=== PATIENT | female | born 1980 | race Caucasian/White ===

== ENCOUNTER 2017-12-01 09:07 | Inpatient (IN) | payer OTHER ==
[2017-12-01] MEDS ORDERED: NA CHLORIDE 0.9% 50 ML IV ONE (09:31)
[2017-12-01] MEDS ORDERED: FOSPHENYTOIN PE 500 MG/10 ML VIAL ONE (09:31)
[2017-12-01] MEDS ORDERED: Nicardipine/NS 25 MG/250 ML KIT IV ONE (09:34)
[2017-12-01] MEDS ORDERED: LABETALOL 20 MG/4ML SYRINGE IV ONE (09:34)
[2017-12-01] MEDS ORDERED: LORazepam 2 MG/ML VIAL ONE ×3 (09:36→10:12)
[2017-12-01] MEDS ORDERED: THIAMINE 200 MG/2 ML INJ ONE (09:41)
[2017-12-01] MEDS ORDERED: LABETALOL HCL 100 MG/20 ML ONE (09:42)
[2017-12-01 09:56] LABS: Absolute Lymphocytes (CBC) 3.3 K/uL (0.7-4.9); Absolute Monocytes 1.2 K/uL (0.1-1.3); Absolute Neutrophil 8.8 K/uL (1.8-8.0); Basophils % 0.4 % (0-1.3); Eosinophils % 1.9 % (0-4.4); Hematocrit 34.8 % (36.0-45.0); Lymphocytes % 24.3 % (15.3-44.8); MCH 31.4 pg (27.0-35.0); MCV 96.3 fL (80-100); MPV 9.7 fL (7.6-11.3); Monocytes % 8.6 % (3.3-12.3); RBC Red Blood Cell Count 3.61 M/uL (3.86-4.86)
[2017-12-01 09:59] LABS: Protime INR 1.09
[2017-12-01 10:06] LABS: Albumin 3.9 g/dL (3.2-5.5); Bilirubin Direct 0.4 mg/dL (0-0.2); Bilirubin Total 1.9 mg/dL (0.3-1.2); Protein, Total 8.9 g/dL (6.0-8.3)
[2017-12-01 10:08] LABS: Potassium 2.7 mEq/L (3.6-5.0)
--- NOTE | 2017-12-01 10:21 | RAD REPORT ---
EXAM DESCRIPTION: CT - Head Brain Wo Cont - 12/01/2017 10:07 am CLINICAL HISTORY: Seizure COMPARISON: 2016 TECHNIQUE: Computed axial tomography of the head was obtained. IV contrast was not requested. All CT scans are performed using dose optimization technique as appropriate and may include automated exposure control or mA/KV adjustment according to patient size. FINDINGS: An intracranial bleed is not seen . The ventricles are normal in caliber. No extra-axial fluid collection is noted. Fluid within the sinuses/ mastoids is not seen. IMPRESSION: No acute intracranial abnormality is seen. If patient's symptoms persist MRI of the bra in would be recommended.
[2017-12-01 10:22] LABS: Arterial Blood Carboxyhemoglob 1.4 % (0-1.5); Blood Gas Oxyhemoglobin 87.4 % (94-97); Blood O2 Saturation 89.8 % (92-98.5)
[2017-12-01 10:23] LABS: Urine Blood TRACE (NEG); Urine Glucose 1+ (NEG); Urine Protein 3+ (NEG); Urine pH 7.5 (5.0-7.0)
--- NOTE | 2017-12-01 10:27 | RAD REPORT ---
EXAM DESCRIPTION: Kelly Single View12/01/2017 9:44 am CLINICAL HISTORY: sob COMPARISON: January 2017 FINDINGS: The lungs appear clear of acute infiltrate. The heart is probably upper limits normal siz e IMPRESSION: No acute abnormalities displayed
--- NOTE | 2017-12-01 10:36 | EDPHYS ---
Physician Documentation [facility] Department Name: Verito Christian Age: 37 yrs Sex: Female : 1980 Arrival Date: 12/01/2017 Time: 09:08 Bed 3 Private MD: ED Physician Pedro Knowles HPI: 12/01 09:34 This 37 yrs old Female presents to ER via Unassigned with complaints of myrna seizure at dialysis,shaking, ams, htn. 09:34 The patient's problem is reported as altered mental status, an apparent seizure, myrna weakness. Onset: The symptoms/episode began/occurred just prior to arrival, this morning. Duration: This was a single incident, The episode is continuous. Context: the episode(s) was witnessed, by a bystander, by EMS personnel, occurred dialysis. seizure, no history. The patient presents with confusion, decreased mental status, decreased responsiveness, trouble concentrating. Possible causes: unknown. Character of seizure(s): Loss of consciousness: the patient experienced loss of consciousness, Motor activity: generalized, Incontinence: none, Apnea: the patient did not experience apnea, Circulation: the patient did not experience evidence of pulse disturbance. Historical: - Allergies: 10:30 Fentanyl (rash); ss 10:30 Morphine (rash); ss - Home Meds: 12:13 amitriptyline 100 mg Oral tab 1 tab nightly [Active]; metoprolol succinate 50 mg oral ph Tb24 1 tab twice a day [Active]; gabapentin 300 mg Oral cap 2 caps twice daily [Active]; ramipril 5 mg Oral cap 2 caps nightly [Active]; doxazosin 2 mg Oral tab 2 tabs twice a day [Active]; Renagel 800 mg Oral tab 2 tabs 3 times per day [Active]; Nexium 40 mg Oral cpDR 1 cap once daily [Active]; amlodipine 10 mg oral tab 1 tab once daily [Active]; aspirin 81 mg Oral TbEC 1 tab once daily [Active]; atorvastatin 20 mg oral tab 1 tab once daily [Active]; - PMHx: 10:30 Diabetes - IDDM; Dialysis; Hypertension; kidney failure; LYMPHOMA; RETINAL DETACHMENT; ss - Immunization history:: Adult Immunizations unknown. - Family history:: not pertinent. - Social history:: Smoking status: Patient/guardian denies using tobacco. ROS: 09:34 Constitutional: Negative for fever, chills, and weight loss, Eyes: Negative for injury, myrna pain, redness, and discharge, ENT: Negative for injury, pain, and discharge, Neck: Negative for injury, pain, and swelling, Cardiovascular: Negative for chest pain, palpitations, and edema, Respiratory: Negative for shortness of breath, cough, wheezing, and pleuritic chest pain, Abdomen/GI: Negative for abdominal pain, nausea, vomiting, diarrhea, and constipation, Back: Negative for injury and pain, : Negative for injury, bleeding, discharge, and swelling, MS/Extremity: Negative for injury and deformity, Skin: Negative for injury, rash, and discoloration, Psych: Negative for depression, anxiety, suicide ideation, homicidal ideation, and hallucinations, Allergy/Immunology: Negative for hives, rash, and allergies, Endocrine: Negative for neck swelling, polydipsia, polyuria, polyphagia, and marked weight changes, Hematologic/Lymphatic: Negative for swollen nodes, abnormal bleeding, and unusual bruising. 09:34 Neuro: Positive for altered mental status, seizure activity, weakness. Exam: 09:34 Constitutional: This is a well developed, well nourished patient who is awake, alert, myrna and in no acute distress. Head/Face: Normocephalic, atraumatic. Eyes: Pupils equal round and reactive to light, extra-ocular motions intact. Lids and lashes normal. Conjunctiva and sclera are non-icteric and not injected. Cornea within normal limits. Periorbital areas with no swelling, redness, or edema. ENT: Nares patent. No nasal discharge, no septal abnormalities noted. Tympanic membranes are normal and external auditory canals are clear. Oropharynx with no redness, swelling, or masses, exudates, or evidence of obstruction, uvula midline. Mucous membranes moist. Neck: Trachea midline, no thyromegaly or masses palpated, and no cervical lymphadenopathy. Supple, full range of motion without nuchal rigidity, or vertebral point tenderness. No Meningismus. Chest/axilla: Normal chest wall appearance and motion. Nontender with no deformity. No lesions are appreciated. Cardiovascular: Regular rate and rhythm with a normal S1 and S2. No gallops, murmurs, or rubs. Normal PMI, no JVD. No pulse deficits. Respiratory: Lungs have equal breath sounds bilaterally, clear to auscultation and percussion. No rales, rhonchi or wheezes noted. No increased work of breathing, no retractions or nasal flaring. Abdomen/GI: Soft, non-tender, with normal bowel sounds. No distension or tympany. No guarding or rebound. No evidence of tenderness throughout. Back: No spinal tenderness. No costovertebral tenderness. Full range of motion. Female : Normal external genitalia. Skin: Warm, dry with normal turgor. Normal color with no rashes, no lesions, and no evidence of cellulitis. MS/ Extremity: Pulses equal, no cyanosis. Neurovascular intact. Full, normal range of motion. 09:34 Neuro: Orientation: unable to test, Mentation: confused, Memory: unable to test, Cranial nerves: no acute changes, Cerebellar function: unable to test, Motor: moves all fours, Gait: not tested. seizure activity, is not currently displayed, but the patient is post-ictal. 10:36 Radiologist reports: Sonal gutierrez [facility] Vital Signs: 09:25 Temp 97.8(R); ss 09:25 BP 263 / 138; Pulse 87; Resp 20; Pulse Ox 100% on Non-rebreather mask; ph 09:45 BP 142 / 85; Pulse 81; Resp 18; Pulse Ox 100% on Non-rebreather mask; ph 10:10 BP 126 / 71; Pulse 77; ph 10:15 BP 126 / 71; Pulse 77; Resp 20; Pulse Ox 100% on Non-rebreather mask; ph 10:45 BP 120 / 75; Pulse 73; Resp 20; Pulse Ox 100% on Non-rebreather mask; ph 11:15 BP 134 / 81; Pulse 74; Resp 18; Pulse Ox 100% on 2 lpm NC; ph 11:45 BP 156 / 88; Pulse 74; Resp 16; Pulse Ox 98% on 2 lpm NC; ph 12:15 BP 143 / 80; Pulse 73; Resp 16; Temp 97.7(R); Pulse Ox 100% on 2 lpm NC; ph Procedures: 11:13 Peripheral line: by aseptic technique a peripheral line was placed in the left external myrna jugular vein. MDM: 09:30 Patient medically screened. [facility] 09:42 Data reviewed: vital signs, nurses notes, lab test result(s), EKG, radiologic studies, [facility] CT scan, plain films. 12/01 09:28 Order name: Basic Metabolic Panel hb 12/01 09:28 Order name: BNP hb 12/01 09:28 Order name: CBC with Diff hb 12/01 09:28 Order name: Ckmb hb 12/01 09:28 Order name: CPK hb 12/01 09:28 Order name: LFT's hb 12/01 09:28 Order name: Magnesium hb 12/01 09:28 Order name: PT-INR hb 12/01 09:28 Order name: Ptt, Activated hb 12/01 09:28 Order name: Troponin (emerg Dept Use Only) hb 12/01 09:28 Order name: Blood Culture Adult (2) hb 12/01 09:39 Order name: Urine Dipstick--Ancillary (enter results) bd 12/01 09:39 Order name: Urine --Ancillary (enter results) bd 12/01 09:49 Order name: ABG myrna 12/01 09:56 Order name: CBC with Automated Diff; Complete Time: 10:15 EDMS 12/01 09:59 Order name: Protime (+INR); Complete Time: 10:15 EDMS 12/01 09:59 Order name: PTT, Activated Partial Thromb; Complete Time: 10:15 EDMS 12/01 10:00 Order name: Basic Metabolic Panel; Complete Time: 10:15 EDMS 12/01 10:06 Order name: Liver (Hepatic) Function; Complete Time: 10:15 EDMS 12/01 10:06 Order name: Creatine Phosphokinase; Complete Time: 10:15 EDMS 12/01 10:06 Order name: Magnesium; Complete Time: 10:15 EDMS 12/01 10:06 Order name: Troponin (Emerg Dept Use Only); Complete Time: 10:15 EDMS 12/01 10:10 Order name: CKMB Creatine Kinase MB; Complete Time: 10:15 EDMS 12/01 10:10 Order name: BNP B-Type Natriuretic Peptide; Complete Time: 10:15 EDMS 12/01 10:24 Order name: Urine --Ancillary EDMS 12/01 10:24 Order name: Urine Dipstick-Ancillary EDMS 12/01 10:48 Order name: ABG Arterial Blood Gas EDMS 12/01 13:14 Order name: Troponin I EDMS 12/01 13:17 Order name: Creatine Phosphokinase [facility] 12/01 13:17 Order name: CKMB Creatine Kinase MB [facility] 12/01 09:28 Order name: XRAY Chest (1 view) 12/01 09:28 Order name: EKG; Complete Time: 09:28 12/01 09:28 Order name: Cardiac monitoring; Complete Time: 10:46 12/01 09:28 Order name: EKG - Nurse/Tech; Complete Time: 11:37 12/01 09:28 Order name: IV Saline Lock; Complete Time: 10:46 12/01 09:28 Order name: Labs collected and sent; Complete Time: 10:46 12/01 09:28 Order name: O2 Per Protocol; Complete Time: 10:46 12/01 09:28 Order name: O2 Sat Monitoring; Complete Time: 10:46 12/01 09:28 Order name: Urine Dipstick-Ancillary (obtain specimen); Complete Time: 10:46 12/01 09:28 Order name: CT Head Brain wo Cont 12/01 09:29 Order name: Straight Cath - Urine; Complete Time: 09:29 12/01 09:32 Order name: Seizure Precautions; Complete Time: 10:49 [facility] 12/01 09:32 Order name: Wound Care; Complete Time: 10:48 [facility] 12/01 09:32 Order name: Wound dressing; Complete Time: 10:48 [facility] 12/01 10:22 Order name: CT [facility] 12/01 10:27 Order name: RAD EDMS Administered Medications: 09:12 Drug: Trandate 20 mg Route: IVP; Site: left jugular; ph 10:15 Follow up: Response: No adverse reaction; Blood pressure is lowered ph 09:20 Drug: Fosphenytoin 1 grams Route: IVPB; Site: left jugular; ph 11:38 Follow up: Response: No adverse reaction; IV Status: Completed infusion ph 09:25 Drug: Ativan 2 mg Route: IVP; Site: left jugular; ph 10:00 Follow up: Response: No adverse reaction ph 09:33 Drug: Thiamine 100 mg Route: IV; Rate: bolus; Site: left jugular; ph 09:35 Drug: Cardene 5 mg/hr Route: IV; Rate: per protocol; Site: left jugular; ph 10:10 Follow up: BP 126 / 71; Pulse 77 bpm; Response: No adverse reaction; Blood pressure is ph lowered; IV Status: IV converted to saline lock 09:40 Drug: Ativan 2 mg Route: IVP; Site: left jugular; ph 10:15 Follow up: Response: No adverse reaction ph 10:15 Drug: Ativan 2 mg Route: IVP; Site: left jugular; ph 11:00 Follow up: Response: No adverse reaction ph 11:36 Drug: Potassium Chloride 20 mEq Route: IV; Rate: per protocol; Site: left jugular; ph 13:39 Follow up: Response: No adverse reaction; IV Status: Completed infusion ph 11:37 Drug: Cefepime 1 grams Route: IVPB; Rate: 200 ml/hr; Infused Over: 30 mins; Site: left ph jugular; 12:25 Drug: vancoMYCIN 1 grams Route: IVPB; Infused Over: 2 hrs; Site: left jugular; ph Point of Care Testing: Blood Glucose: 09:25 Blood Glucose: 123 mg/dL; ph Ranges: Critical Glucose Levels:Adult <50 mg/dl or >400 mg/dl <40 mg/dl or >180 mg/dl Disposition: 12/01/17 10:35 Hospitalization ordered by Ariel Mendosa for Inpatient Admission. Preliminary diagnosis are Epileptic seizures related to external causes, Hypokalemia, Altered mental status, unspecified, Cellulitis of left lower limb - toe, amputated, Essential (primary) hypertension. - Bed requested for Intensive Care Unit. - Status is Inpatient Admission. ph - Condition is Serious. - Problem is new. - Symptoms have improved. UTI on Admission? No Signatures: Dispatcher [employer] EDPedro Clifton MD MD cha Smirch, Shelby, RN RN Tameka King RN RN Janelle Luong RN RN Kate Huston RN RN df
--- NOTE | 2017-12-01 10:36 | ER ---
Nurse's Notes [facility] Name: Verito Christian Age: 37 yrs Sex: Female : 1980 Arrival Date: 12/01/2017 Time: 09:08 Bed 3 Private MD: Diagnosis: Epileptic seizures related to external causes;Hypokalemia;Altered mental status, unspecified;Cellulitis of left lower limb-toe, amputated;Essential (primary) hypertension Presentation: 12/01 09:35 Presenting complaint: EMS states: Pt w/ hx of CVA x 2 weeks ago, has been experiencing ph tremors, weakness, and painsince, was at dialysis today and tremors became worse, tx d/c after 1.9 liters removed. BP elevated 200s/100s [employer]. Transition of care: patient was not received from another setting of care. Onset of symptoms was December 01, 2017. Care prior to arrival: None. 09:35 Method Of Arrival: EMS: [facility] ph 09:35 Acuity: HENRRY 2 ph Historical: - Allergies: 10:30 Fentanyl (rash); ss 10:30 Morphine (rash); ss - Home Meds: 12:13 amitriptyline 100 mg Oral tab 1 tab nightly [Active]; metoprolol succinate 50 mg oral ph Tb24 1 tab twice a day [Active]; gabapentin 300 mg Oral cap 2 caps twice daily [Active]; ramipril 5 mg Oral cap 2 caps nightly [Active]; doxazosin 2 mg Oral tab 2 tabs twice a day [Active]; Renagel 800 mg Oral tab 2 tabs 3 times per day [Active]; Nexium 40 mg Oral cpDR 1 cap once daily [Active]; amlodipine 10 mg oral tab 1 tab once daily [Active]; aspirin 81 mg Oral TbEC 1 tab once daily [Active]; atorvastatin 20 mg oral tab 1 tab once daily [Active]; - PMHx: 10:30 Diabetes - IDDM; Dialysis; Hypertension; kidney failure; LYMPHOMA; RETINAL DETACHMENT; ss - Immunization history:: Adult Immunizations unknown. - Family history:: not pertinent. - Social history:: Smoking status: Patient/guardian denies using tobacco. Screenin:54 Abuse screen: Denies threats or abuse. Denies injuries from another. Nutritional ph screening: No deficits noted. Tuberculosis screening: No symptoms or risk factors identified. Fall Risk Fall in past 12 months (25 points). Secondary diagnosis (15 points) CVA, IV access (20 points). Ambulatory Aid- None/Bed Rest/Nurse Assist (0 pts). Gait- Normal/Bed Rest/Wheelchair (0 pts). Assessment: 09:05 Reassessment: After transferring pt from EMS stretcher to ED bed pt began to exhibit ph seizure like activity, placed pt on NRB mask, moved to trauma room and ERP notified. 09:45 Reassessment: Patient appears in no apparent distress at this time. Pt post-ictal at this time, restless and attempting to pull IV line and monitor wires, soft restraints applied to radha wrist per ERP order, brisk cap refill noted, respirations even an unlabored, SPo2 100% on NRB. 10:00 Reassessment: Pt taken to CT, accompanied by RN. ph 10:08 Reassessment: Dr. Knowles notified of Critical value, serum Potassium 2.7. ss 10:25 General: Appears in no apparent distress. obese, well groomed, Behavior is listless, ph restless. Pain: Unable to use pain scale. Patient is unresponsive. Neuro: Level of Consciousness is post ictal, Pupils are PERRLA, Seizure activity Seizure lasted approximately 1 minutes. Patient is post-ictal at this time. Cardiovascular: Capillary refill < 3 seconds Patient's skin is warm and dry. Dialysis shunt: in the right arm, with palpable thrill, with auscultated bruit, with no erythema, with no edema, no bleeding noted. Respiratory: Airway is patent Respiratory effort is even, unlabored, Respiratory pattern is regular, symmetrical, Breath sounds are clear bilaterally. GI: Abdomen is round non-distended, Bowel sounds present X 4 quads. Derm: Skin is healthy with good turgor, Skin is pink, warm \T\ dry. Wound noted plantar aspect of left first toe. Musculoskeletal: Amputation of left first toe. Circulation, motion, and sensation intact. Range of motion: intact in all extremities. 10:29 Reassessment: Dr. Mendosa at bedside discussing POC with patient's mother. ss 11:00 Reassessment: Patient appears in no apparent distress at this time. Patient and/or family updated on plan of care and expected duration. Pain level reassessed. Pt appears to be sleeping, respirations even and unlabored, responds to tactile stimuli, family at bedside, awaiting room assignment, VSS will continue to monitor. 12:05 Reassessment: Patient appears in no apparent distress at this time. No changes from ph previously documented assessment. Patient and/or family updated on plan of care and expected duration. Pain level reassessed. 13:15 Reassessment: Patient appears in no apparent distress at this time. No changes from ph previously documented assessment. Patient and/or family updated on plan of care and expected duration. Pain level reassessed. Vital Signs: 09:25 Temp 97.8(R); ss 09:25 BP 263 / 138; Pulse 87; Resp 20; Pulse Ox 100% on Non-rebreather mask; ph 09:45 BP 142 / 85; Pulse 81; Resp 18; Pulse Ox 100% on Non-rebreather mask; ph 10:10 BP 126 / 71; Pulse 77; ph 10:15 BP 126 / 71; Pulse 77; Resp 20; Pulse Ox 100% on Non-rebreather mask; ph 10:45 BP 120 / 75; Pulse 73; Resp 20; Pulse Ox 100% on Non-rebreather mask; ph 11:15 BP 134 / 81; Pulse 74; Resp 18; Pulse Ox 100% on 2 lpm NC; ph 11:45 BP 156 / 88; Pulse 74; Resp 16; Pulse Ox 98% on 2 lpm NC; ph 12:15 BP 143 / 80; Pulse 73; Resp 16; Temp 97.7(R); Pulse Ox 100% on 2 lpm NC; ph ED Course: 09:08 Patient arrived in ED. ph 09:10 Missed attempt(s): 20 gauge in left antecubital area. Bleeding controlled, band aid ph applied, catheter tip intact. 09:15 Inserted saline lock: 18 gauge in left EJ, using aseptic technique. Blood collected. ph inserted by Pedro Knowles MD. 09:25 Straight cath inserted, using sterile technique, 16 Fr. Returned clear yellow urine. ss 09:30 Pedro Knowles MD is Attending Physician. myrna 09:38 Triage completed. ph 09:43 X-ray completed. Portable x-ray completed in exam room. Patient tolerated procedure kp1 well. 10:08 CT completed. Patient tolerated procedure well. Patient moved back from CT. bq 10:24 Ariel Mendosa DO is Hospitalizing Provider. myrna 10:46 Tameka King, RN is Primary Nurse. ph 10:59 Patient has correct armband on for positive identification. Bed in low position. Call ph light in reach. Side rails up X2. Seizure precautions initiated. library monitor on. Pulse ox on. NIBP on. 11:00 Arm band placed on. ph 11:10 EKG done, by ED staff, reviewed by Pedro Knowles MD. cc2 12:05 No provider procedures requiring assistance completed. ph 12:15 Patient admitted, IV remains in place. ph Restraints: 09:45 Non-Violent Restraint: Order obtained. Initiated on December 01, 2017 at 09:45 Restraint ph Education provided to family/significant other/legally authorized insurance claims representative. Actions/Behavior observed: Confused/disoriented, has decreased level of consciousness, unable to follow instructions, repeated attempts to remove/tamper lines/tubes/IV med devices \T\ wound dressing, Less restrictive alternatives attempted: placed near Nurse station, medicated for pain/anxiety, Alternative interventions: Ineffective. Clinical justification for use: line protection, patient safety. 11:45 Non-Violent Restraint: Mental status: patient asleep, Cognition: unable to follow ph commands, short term memory loss, Circulation: Within defined parameters (based on Cardiovascular assessment) Skin integrity: Within defined parameters (based on Integumentary assessment) Signs of injury related to restraint: No injuries noted. Range of Motion (ROM): performed. Hydration/Food: patient asleep. Elimination/Hygiene: Patient asleep. Administered Medications: 09:12 Drug: Trandate 20 mg Route: IVP; Site: left jugular; ph 10:15 Follow up: Response: No adverse reaction; Blood pressure is lowered ph 09:20 Drug: Fosphenytoin 1 grams Route: IVPB; Site: left jugular; ph 11:38 Follow up: Response: No adverse reaction; IV Status: Completed infusion ph 09:25 Drug: Ativan 2 mg Route: IVP; Site: left jugular; ph 10:00 Follow up: Response: No adverse reaction ph 09:33 Drug: Thiamine 100 mg Route: IV; Rate: bolus; Site: left jugular; ph 09:35 Drug: Cardene 5 mg/hr Route: IV; Rate: per protocol; Site: left jugular; ph 10:10 Follow up: BP 126 / 71; Pulse 77 bpm; Response: No adverse reaction; Blood pressure is ph lowered; IV Status: IV converted to saline lock 09:40 Drug: Ativan 2 mg Route: IVP; Site: left jugular; ph 10:15 Follow up: Response: No adverse reaction ph 10:15 Drug: Ativan 2 mg Route: IVP; Site: left jugular; ph 11:00 Follow up: Response: No adverse reaction ph 11:36 Drug: Potassium Chloride 20 mEq Route: IV; Rate: per protocol; Site: left jugular; ph 13:39 Follow up: Response: No adverse reaction; IV Status: Completed infusion ph 11:37 Drug: Cefepime 1 grams Route: IVPB; Rate: 200 ml/hr; Infused Over: 30 mins; Site: left ph jugular; 12:25 Drug: vancoMYCIN 1 grams Route: IVPB; Infused Over: 2 hrs; Site: left jugular; ph Point of Care Testing: Blood Glucose: 09:25 Blood Glucose: 123 mg/dL; ph Ranges: Outcome: 10:35 Decision to Hospitalize by Provider. myrna 13:38 Admitted to ICU accompanied by nurse, accompanied by tech, via wheelchair, room 3, with ph oxygen, on monitor, with chart, Report called to Mecca JACKSON 13:38 critical 13:41 Patient left the ED. ph Signatures: Pedro Knowles MD MD cha Quilty, Betty bq Smirch, Shelby, RN RN Tameka Vogel RN RN Shilo, Al charles2 Carmen Villa kp1 Corrections: (The following items were deleted from the chart) 11:06 09:05 Reassessment: After transferring pt from EMS stretcher to ED bed pt began to ph exhibit seizure like activity, moved to trauma room and ERP notified. ph 11:39 10:10 BP 126 / 71; Pulse 77 bpm; IV Status: IV converted to saline lock ph ph 12:06 10:25 Cardiovascular: Capillary refill < 3 seconds Patient's skin is warm and dry. ph ph
[2017-12-01] MEDS ORDERED: ONDANSETRON 4 MG/2 ML VIAL IV PRN (11:03)
[2017-12-01] MEDS ORDERED: ACETAMINOPHEN 650MG/RECT SUPP PR PRN (11:03)
[2017-12-01] MEDS ORDERED: SODIUM CHLORIDE 0.9% 10ML INJ IV PRN (11:03)
[2017-12-01] MEDS ORDERED: ALBUTEROL 2.5 MG/3 ML NEB SOL NEB PRN (11:03)
[2017-12-01] MEDS ORDERED: IPRATROPIUM BROM 0.5MG/2.5ML NEB PRN (11:03)
[2017-12-01] MEDS ORDERED: GLUCAGON 1 MG/VIAL IM PRN (11:27)
[2017-12-01] MEDS ORDERED: D50W 25 GM/50 ML SYRINGE IV PRN (11:27)
[2017-12-01] MEDS ORDERED: NA CHLORIDE 0.9% 500 ML ONE (11:28)
[2017-12-01] MEDS ORDERED: KCL 20 MEQ/100 mL IVPB 20 MEQ/100 ML BAG IV ONE (11:29)
[2017-12-01] MEDS ORDERED: CEFEPIME 1 GM/100 ML BAG IV ONE (11:29)
[2017-12-01] MEDS ORDERED: VANCOMYCIN/NS 1 gm 1 GM/250 ML BAG ONE (11:29)
[2017-12-01] MEDS: INSULIN -REGULAR HUMAN 50 UNIT/0.5 ML ML SQ SCH ×3 (11:30→21:00)
--- NOTE | 2017-12-01 11:40 | P.HP ---
Certification for Inpatient Patient admitted to: Inpatient With expected LOS: >2 Midnights Patient will require the following post-hospital care: Other Practitioner: I am a practitioner with admitting privileges, knowledge of patient current condition, hospital course, and medical plan of care. Services: Services provided to patient in accordance with Admission requirements found in Title 42 Section 412.3 of the Code of Federal Regulations Patient History Date of Service: 12/01/17 Primary Care Provider: Dr. Vicente; Nephrology-Dr. Guaman; Cardiology-Dr. Gonzalez Reason for admission: Altered mental status, seizures History of Present Illness: 37-year-old female presented to the emergency room with altered mental status and seizures. Patient with multiple medical problems including end-stage renal disease, obstructive sleep apnea, diabetes, hypertension, hyperlipidemia, history CVA, PAD. Most of the information came from the mother and aunt who was present at bedside. The mother reports that on November 08 the patient had an outpatient procedure to have a left great toe amputated due to gangrene. This was done at [facility]. The patient stayed overnight. She apparently got dialysis at that time. She apparently coded for about 4 min. She was sent to ICU and was placed on the ventilator. During that time the patient had suffered a stroke in 3 areas of the brain. She also had gotten an EEG. The mother thought that the patient had seizures. She is unsure whether the patient got anti she is in medication. The patient was rehabilitated. She stayed at the hospital for about 2 weeks. She was told that there was little that can be done for the patient. She was sent to [facility] last week. During this past week she has had poor appetite. Some nausea and vomiting has no been noted. She has poor memory. She is not able to walk. Today she went to dialysis. She apparently had some mild tremors during her treatment. 1.9 L was taken off. The tremors increased. She came to the emergency room for further evaluation. In the ER she was evaluated. She appeared to have seizures. She was given Ativan and fosphenytoin. The patient remained stable at this time. Patient is somnolent. In the ER lab shows a potassium of 2.7, BUN of 22, creatinine 3.99 with a GFR of 13. BNP elevated at 967. Troponin 0.03. Total bilirubin 1.9, AST 53, alk- phos slightly elevated. Urinalysis was unremarkable. test negative. Chest x-ray negative. CT of the head showed no acute abnormality. White count 13.6, hemoglobin 11. Patient has been stabilize. I was asked to admit the patient. Neurology and Nephrology have been consulted. When I saw the patient in the ER, she appeared somnolent. She was difficult to arouse but stable. Vital signs stable at this time. She does not appear in any acute respiratory distress. Mother and aunt are at bedside. Allergies morphine Allergy (Intermediate, Verified 07/18/16 08:38) Itching fentanyl Allergy (Verified 07/18/16 08:38) Itching Home medications list reviewed: Yes Home Medications: Metoprolol Tartrate [Lopressor] 50 mg PO BID 04/10/16 Gabapentin [Neurontin*] 600 mg PO BID 06/28/16 Amitriptyline HCl 100 mg PO BEDTIME 12/22/16 traMADol HCL [Ultram*] 50 mg PO TIDP PRN #20 tab 12/24/16 - Past Medical/Surgical History Diabetic: Yes -: Diabetes mellitus type 2 -: HTN -: End-stage renal disease, hemodialysis T,Th,Sat; Dr. Guaman-Nephrology. -: History of pancreatitis -: Burkitt's Lymphoma -: History of seizures -: Gastroparesis -: Anemia of chronic disease -: Gastroparesis -: History retinal detachment -: History CVA -: Former tobacco use -: I&D of abcess, SOME LYMPH NODES REMOVED BILAT GROIN -: -: [place] cath - removed -: PERMA CATH PLACEMENT -: G-J TUBE INSERTION, REMOVAL -: dialysis fistula Psychosocial/ Personal History: She is . Has 1 child. She no longer works. She currently is at [facility] [employer] [facility]. - Family History Father -: Hypertension, Diabetes, Other (see notes) Notes: LYMPHOMA Mother -: Hypertension, Diabetes, Cancer Notes: Breast cancer - Social History Smoking Status: Former smoker Alcohol use: No CD- Drugs: No Caffeine use: No Place of Residence: [place] Review of Systems General: Weakness, As per HPI Eyes: Unremarkable ENT: Unremarkable Respiratory: Unremarkable Cardiovascular: Unremarkable Gastrointestinal: Nausea, Vomiting, As per HPI Genitourinary: Unremarkable Musculoskeletal: As per HPI Integumentary: As per HPI Neurological: Weakness, Confusion, Seizures, As per HPI Lymphatics: Unremarkable Physical Examination - Physical Exam General: Other (Patient sedated. No acute respiratory distress noted. Increased somnolence noted.) HEENT: Atraumatic, Mucous membr. moist/pink Neck: Supple Respiratory: Clear to auscultation bilaterally, Normal air movement Cardiovascular: Normal pulses, Regular rate/rhythm Gastrointestinal: Normal bowel sounds, Soft and benign, Non-distended Musculoskeletal: No tenderness, No warmth Integumentary: Other (Postoperative changes noted to the left great toe.) Neurological: Other (Patient sedated at this time.) - Studies Laboratory Data (last 24 hrs) 12/01/17 09:30: PT 12.9 H, INR 1.09, APTT 27.3 12/01/17 09:30: WBC 13.6 H, Hgb 11.3 L, Hct 34.8 L, Plt Count 355 12/01/17 09:30: B-Natriuretic Peptide 967 H 12/01/17 09:30: Sodium 138, Potassium 2.7 L*, BUN 22 H, Creatinine 3.99 H, Glucose 145 H, Magnesium 2.0, Total Bilirubin 1.9 H, AST 53 H, ALT 30, Alkaline Phosphatase 192 H Assessment and Plan - Problems (Diagnosis) (1) Encephalopathy Current Visit: Yes Status: Acute Plan: Etiology unknown. Metabolic verses neurologic. Patient appears to have had a seizure. There is a history of seizures. There is also a recent history of CVA. Will need to see if the patient was [facility] the [facility] with anti seizure medication. Patient has gotten Ativan and loading dose of fosphenytoin. Will continue with fosphenytoin. Initial CT scan shows no acute abnormality. Neurology has been consulted. Patient will go to the ICU. Patient will require dialysis. Nephrology consulted to further address. Will try to obtain records from [facility] due to recent hospitalization. Advanced directives address with mother. Aunt at bedside. This had been addressed in the past. Mother reports that the patient is DNR. This was addressed in detail and confirmed. Will continue to further assess and evaluate. (2) Seizures Current Visit: Yes Status: Acute Plan: Patient with history of seizure disorder with recent CVA. Will continue with medication. Await evaluation by neurology. Will obtain records from [facility]. (3) Hypokalemia Current Visit: Yes Status: Acute Plan: Hypokalemia will need replacement. Await recommendations from nephrology. (4) PAD (peripheral artery disease) Current Visit: Yes Status: Chronic Plan: Patient with recent left toe amputation. Will continue with wound care. (5) History of CVA (cerebrovascular accident) Current Visit: Yes Status: Chronic Plan: Patient with history of recent CVA. Will need to obtain records. Await neurology evaluation and recommendation. (6) Diabetes mellitus Onset Date: 07/26/15 Current Visit: No Status: Chronic Plan: Will provide sliding scale. 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 Patient will require dialysis. (8) Gastroparesis Current Visit: No Status: Chronic Plan: Patient with history of gastroparesis. Will monitor closely. (9) Hypertension Onset Date: 07/26/15 Current Visit: No Status: Chronic Plan: Will provide medication. Qualifiers: Hypertension type: essential hypertension Qualified Code(s): I10 - Essential (primary) hypertension (10) COPD (chronic obstructive pulmonary disease) Current Visit: Yes Status: Suspected Plan: Patient with history of tobacco abuse. Will provide medication. Will monitor closely. Qualifiers: COPD type: chronic bronchitis Chronic bronchitis type: unspecified Qualified Code(s): J42 - Unspecified chronic bronchitis (11) Anemia Onset Date: 07/26/15 Current Visit: No Status: Chronic Plan: Likely of chronic disease. Will monitor closely. Qualifiers: Anemia type: due to chronic kidney disease Chronic kidney disease stage: on chronic dialysis Qualified Code(s): N18.6 - End stage renal disease; D63.1 - Anemia in chronic kidney disease; D63.1 - Anemia in chronic kidney disease; Z99.2 - Dependence on renal dialysis; Z99.2 - Dependence on renal dialysis; Z99.2 - Dependence on renal dialysis; Z99.2 - Dependence on renal dialysis (12) GERD (gastroesophageal reflux disease) Current Visit: No Status: Chronic Plan: Will continue the medication. Qualifiers: Esophagitis presence: esophagitis presence not specified Qualified Code(s) : K21.9 - Gastro-esophageal reflux disease without esophagitis Discharge Plan: Snf Plan to discharge in: Greater than 2 days - Advance Directives Does patient have a Living Will: No Does patient have a Durable POA for Healthcare: No - Code Status/Comfort Care Code Status Assessed: Yes (Confirmed with mother) Time Spent Managing Pts Care (In Minutes): 55
[2017-12-01] MEDS ORDERED: FOSPHENYTOIN PE 100 MG/2 ML VIAL IV SCH (12:00)
[2017-12-01] MEDS ORDERED: ENOXAPARIN 40 MG/0.4 ML SQ SCH (12:00)
[2017-12-01 13:17] LABS: CKMB Creatine Kinase MB 2.7 ng/ml (0.3-4.0)
[2017-12-01] MEDS: HYDRALAZINE HCL 20 MG/ML VIAL IV PRN (14:18)
--- NOTE | 2017-12-01 14:24 | CON ---
Reason: Seizure. History: A 37-year-old lady, history of diabetes, end-stage renal disease, on dialysis, recent strok e, treated at a different institution, had new-onset seizure today witnessed in the Emergency Departm ent. Given a gram of fosphenytoin. CT scan of the brain demonstrates no evidence for cerebral hemor rhage. Blood pressure was markedly elevated initially in the Emergency Department, 263/138. The pat ient was also given lorazepam. She has not had any further seizure activity. She has multiple medic al problems as alluded to. Admitted to the ICU. The patient is a little bit more arousable currentl y than when she was in the Emergency Department. White cell count 13.6. Consultation was requested. Past Medical History: As alluded to. Medications: Normally Lopressor, gabapentin, amitriptyline, and tramadol. Allergies: MORPHINE AND FENTANYL. Social History: Never smoked. Disabled, was requiring assistance with activities of daily living pr ior to this event per the medical record. Family History: No family history of seizures. Review of Systems: General: Chronically ill. Eyes: retinal detachment. Ears, nose, and throat: Negative. Cardiovascular: History of hypertension. Pulmonary: Negative. GI: Negative. : End-stage renal disease. Musculoskeletal: recent great toe amputation. Neurologic: As noted. Psychiatric: Negative. Endocrine: Diabetes. Hematologic: Negative. Physical Examination: Vital Signs: On exam, she is afebrile. Vitals are stable. General: The patient is drowsy, but yeison usable. Can tell me her name. Answers questions. HEENT: Pupils poorly reactive. Ocular motion present. Face symmetric Neck: Supple. Extremities: Examination of her extremities reveals 4/5 strength throughout. Withdraws all extremit ies to pain. Reflexes are absent. Right toe was downgoing. Left toe was surgically absent. Pertinent Laboratory Data: White count 13,000, hemoglobin 11.3. CT scan as noted. PT and PTT nancy l. Potassium 2.7. Creatinine 3.99. TSH 2.69. Impression: New onset seizure, possibly related to the patient's recent stroke or hypertensive encep halopathy/crisis. Plan: Continue care in the intensive care unit. Continue IV fosphenytoin and follow levels. Keep l evel 10-20. Check EEG. Brain MRI once the patient is able to have the study performed, not availabl e on the weekend, so that we will likely have to wait till Sunday. Thank you for the consult. We will continue to follow with you. AVERY Voice ID: [id number] Report ID: [id number]
[2017-12-01] MEDS ORDERED: PNEUMOCOCCAL VACCINE 0.5 ML IMVAC ONE (17:00)
[2017-12-01] MEDS ORDERED: INFLUENZA VACCINE (for 3y+) 0.5 ML DOSE IMVAC ONE (17:00)
[2017-12-01] MEDS: FOSPHENYTOIN PE 100 MG/2 ML VIAL IV SCH (17:10)
[2017-12-01] MEDS ORDERED: KCL 20 MEQ/100 mL IVPB 20 MEQ/100 ML BAG IV SCH (19:00)
[2017-12-01] MEDS: ARFORMOTEROL TARTRATE 15 MCG/2 ML VIAL.NEB NEB SCH (20:03)
[2017-12-01 20:18] LABS: CKMB Creatine Kinase MB 3.1 ng/ml (0.3-4.0)
[2017-12-01] MEDS: ATORVASTATIN 40 MG TAB PO SCH (20:21)
[2017-12-02] MEDS: FOSPHENYTOIN PE 100 MG/2 ML VIAL IV SCH ×2 (00:16→09:05)
[2017-12-02] MEDS: HYDRALAZINE HCL 20 MG/ML VIAL IV PRN (05:03)
[2017-12-02 05:09] LABS: Absolute Lymphocytes (CBC) 1.7 K/uL (0.7-4.9); Absolute Monocytes 0.8 K/uL (0.1-1.3); Absolute Neutrophil 5.6 K/uL (1.8-8.0); Basophils % 0.4 % (0-1.3); Eosinophils % 2.5 % (0-4.4); Hematocrit 31.9 % (36.0-45.0); Lymphocytes % 20.1 % (15.3-44.8); MCH 31.3 pg (27.0-35.0); MPV 9.9 fL (7.6-11.3); Monocytes % 9.3 % (3.3-12.3); RBC Red Blood Cell Count 3.35 M/uL (3.86-4.86)
--- NOTE | 2017-12-02 05:15 | EKG ---
Test Date: 2017-12-01 Test Time: 11:04:01 Emergency Room Nurse: BARRY MEASUREMENT RESULTS: Intervals: Rate: 76 LA: 150 QRSD: 88 QT: 470 QTc: 528 [place]: P: 20 LA: 150 QRS: 75 T: 101 INTERPRETIVE STATEMENTS: Normal sinus rhythm Nonspecific ST abnormality Prolonged QT Abnormal ECG Compared to ECG 12/23/2016 06:40:38 ST (T wave) deviation now present Prolonged QT interval now present T-wave abnormality no longer present Electronically Signed On 12-02-17 05:14:12 CDT by Cristian Hernandez
[2017-12-02 05:26] LABS: CKMB Creatine Kinase MB 2.6 ng/ml (0.3-4.0)
[2017-12-02 05:28] LABS: Albumin 3.5 g/dL (3.2-5.5); Bilirubin Total 1.3 mg/dL (0.3-1.2); Potassium 3.6 mEq/L (3.6-5.0); Protein, Total 7.8 g/dL (6.0-8.3)
[2017-12-02] MEDS: INSULIN -REGULAR HUMAN 50 UNIT/0.5 ML ML SQ SCH ×4 (07:30→21:00)
[2017-12-02] MEDS: ARFORMOTEROL TARTRATE 15 MCG/2 ML VIAL.NEB NEB SCH ×2 (08:00→19:59)
[2017-12-02] MEDS: ASPIRIN EC 81 MG TAB PO SCH (09:05)
[2017-12-02] MEDS: PANTOPRAZOLE 40 MG INJ IVP SCH (09:05)
[2017-12-02] MEDS: ENOXAPARIN 30 MG/0.3 ML SQ SCH (09:06)
--- NOTE | 2017-12-02 09:22 | P.PN ---
Subjective Date of Service: 12/02/17 Primary Care Provider: Dr. Vicente; Nephrology-Dr. Guaman; Cardiology-Dr. Gonzalez Chief Complaint: Altered mental status, seizures Subjective: Other (Patient doing better. She is interactive this morning.) Physical Examination - Vital Signs Temperature: 98.4 F Blood Pressure: 128/64 Pulse: 93 Respirations: 21 Pulse Ox (%): 98 - Physical Exam General: Alert, In no apparent distress, Cooperative HEENT: Atraumatic Neck: Supple Respiratory: Clear to auscultation bilaterally, Normal air movement Cardiovascular: Normal pulses, Regular rate/rhythm Gastrointestinal: Normal bowel sounds, Soft and benign, Non-distended, No tenderness, No masses, No rebound, No guarding Musculoskeletal: No erythema, No tenderness, No warmth Integumentary: No erythema, No warmth, No cyanosis Neurological: Normal speech, Normal strength at 5/5 x4 extr, Normal tone, Abnormal affect (Flat affect noted.) - Studies Laboratory Data (last 24 hrs) 12/01/17 09:30: PT 12.9 H, INR 1.09, APTT 27.3 12/01/17 09:30: WBC 13.6 H, Hgb 11.3 L, Hct 34.8 L, Plt Count 355 12/01/17 09:30: B-Natriuretic Peptide 967 H 12/01/17 09:30: Sodium 138, Potassium 2.7 L*, BUN 22 H, Creatinine 3.99 H, Glucose 145 H, Magnesium 2.0, Total Bilirubin 1.9 H, AST 53 H, ALT 30, Alkaline Phosphatase 192 H Medications List Reviewed: Yes Assessment & Plan - Problems (Diagnosis) (1) Encephalopathy Current Visit: Yes Status: Acute Plan: Patient more responsive and cooperative this morning. Will advance diet if no difficulty swallowing. Patient has been started on anti seizure medication. Patient to get EEG tomorrow along with MRI to evaluate further. Patient with recent CVA at [facility]. Neurology suspects that the patient may have had seizure related to recent CVA versus hypertensive encephalopathy. Patient did receive dialysis yesterday. Will continue to monitor closely. Will restart her hypertensive medications. Patient also taking medication for chronic pain. Will monitor this closely. I will turn the service over to Dr. Thurman tomorrow. I will go over the plan of care with him. Patient will return to the correction at discharge. Advanced directives address with mother yesterday. Patient is DNR. (2) Seizures Current Visit: Yes Status: Acute Plan: Patient with history of seizure disorder with recent CVA. Will continue with medication. Neurology plans for EEG and MRI for tomorrow. (3) Hypokalemia Current Visit: Yes Status: Acute Plan: This has improved. Nephrology to further monitor and address (4) PAD (peripheral artery disease) Current Visit: Yes Status: Chronic Plan: Patient with recent left toe amputation. Will continue with wound care. (5) History of CVA (cerebrovascular accident) Current Visit: Yes Status: Chronic Plan: Patient with history of recent CVA. Will continue with blood pressure control. Patient on anti seizure medication. Will need to obtain records from [facility]. (6) Diabetes mellitus Onset Date: 07/26/15 Current Visit: No Status: Chronic Plan: Will continue with sliding scale. 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 Patient gets dialysis Sunday, and Saturdays. (8) Gastroparesis Current Visit: No Status: Chronic Plan: Patient with history of gastroparesis. Will monitor closely. (9) Hypertension Onset Date: 07/26/15 Current Visit: No Status: Chronic Plan: Her home medications have been restarted. Will monitor closely. Qualifiers: Hypertension type: essential hypertension Qualified Code(s): I10 - Essential (primary) hypertension (10) COPD (chronic obstructive pulmonary disease) Current Visit: Yes Status: Suspected Plan: Patient with history of tobacco abuse. Will continue with COPD medication. Qualifiers: COPD type: chronic bronchitis Chronic bronchitis type: unspecified Qualified Code(s): J42 - Unspecified chronic bronchitis (11) Anemia Onset Date: 07/26/15 Current Visit: No Status: Chronic Plan: Likely of chronic disease. Will monitor closely. Qualifiers: Anemia type: due to chronic kidney disease Chronic kidney disease stage: on chronic dialysis Qualified Code(s): N18.6 - End stage renal disease; D63.1 - Anemia in chronic kidney disease; D63.1 - Anemia in chronic kidney disease; Z99.2 - Dependence on renal dialysis; Z99.2 - Dependence on renal dialysis; Z99.2 - Dependence on renal dialysis; Z99.2 - Dependence on renal dialysis (12) GERD (gastroesophageal reflux disease) Current Visit: No Status: Chronic Plan: Will continue the medication. Qualifiers: Esophagitis presence: esophagitis presence not specified Qualified Code(s) : K21.9 - Gastro-esophageal reflux disease without esophagitis Discharge Plan: Long-Term Plan to discharge in: 48 Hours - Code Status/Comfort Care Code Status Assessed: Yes (Addressed yesterday with mother) Time Spent Managing Pts Care (In Minutes): 55
[2017-12-02] MEDS: METOPROLOL TAR 50 MG TAB PO SCH ×2 (09:28→20:13)
[2017-12-02] MEDS ORDERED: GABAPENTIN 100 MG CAP PO SCH (10:00)
[2017-12-02] MEDS ORDERED: SEVELAMER HCL 1600 MG PO SCH (12:00)
[2017-12-02] MEDS: GABAPENTIN 300 MG CAP PO SCH ×2 (12:09→20:14)
[2017-12-02] MEDS: DOXAZOSIN 4 MG TAB PO SCH ×2 (12:09→20:12)
[2017-12-02] MEDS: SEVELAMER CARBONATE 800 MG TABLET PO SCH ×2 (12:10→17:01)
--- NOTE | 2017-12-02 16:40 | PN ---
Date of Progress Note: 12/02/2017 Time: 1430. Reason: Seizures. Interval History: The patient is stable. No seizures. Back to baseline. Awake, alert, oriented, t aking p.o. No new problems with her nervous system overnight. No fevers. Blood pressure is much be tter controlled currently. The patient remembers being in dialysis and having the seizure and then w aking up here in the ICU. States she had some seizure-like activity when she was hospitalized as wel l, so I think it is prudent to continue the phenytoin post discharge. Physical Examination: Vital Signs: On exam, she is awake, alert, oriented. HEENT: Pupils reactive. Ocular motion full. Griffin full. Sensation decreased distally. Reflexes absent. No [id number] ataxia. Laboratory Data: Dilantin level 6.7. Impression: New onset seizures. Plan: Change fosphenytoin to p.o. Dilantin. Continue to follow levels. Brain MRI and EEG in the mo rning. We will continue to follow with you. AVERY Voice ID: [id number] Report ID: [id number]
[2017-12-02] MEDS: RAMIPRIL 5 MG CAP PO SCH (17:01)
[2017-12-02] MEDS: PHENYTOIN ER 100 MG CAP PO SCH ×2 (17:01→20:13)
[2017-12-02] MEDS ORDERED: VANCOMYCIN 1 GM in NA CHLORIDE 0.9% 500 ML IVPB ONE ×4 (19:00)
[2017-12-02] MEDS: ATORVASTATIN 40 MG TAB PO SCH (20:14)
[2017-12-02] MEDS: AMITRIPTYLINE 50 MG TAB PO SCH (20:14)
[2017-12-02] MEDS: JUVEN PACKET PO SCH (20:15)
[2017-12-02] MEDS ORDERED: ARFORMOTEROL TARTRATE 15 MCG/2 ML VIAL.NEB ONE (20:16)
[2017-12-02] MEDS ORDERED: HOME MED 1 EA UNK (Amitriptyline Hcl [Amitriptyline Hcl] 100 MG) PO SCH (21:00)
[2017-12-02] MEDS ORDERED: VANCOMYCIN/NS 1 gm 1 GM/250 ML BAG IV ONE (21:00)
[2017-12-02] MEDS ORDERED: GABAPENTIN 300 MG CAP PO SCH (21:00)
[2017-12-02] MEDS ORDERED: HOME MED 1 EA UNK (Metoprolol Tartrate [Lopressor] 50 MG) PO SCH (21:00)
[2017-12-03 05:13] LABS: Absolute Lymphocytes (CBC) 1.6 K/uL (0.7-4.9); Absolute Monocytes 0.9 K/uL (0.1-1.3); Absolute Neutrophil 6.2 K/uL (1.8-8.0); Basophils % 0.2 % (0-1.3); Eosinophils % 3.3 % (0-4.4); Hematocrit 29.8 % (36.0-45.0); MCH 31.7 pg (27.0-35.0); MCV 96.1 fL (80-100); MPV 9.6 fL (7.6-11.3); Monocytes % 10.1 % (3.3-12.3)
[2017-12-03 05:41] LABS: Albumin 3.2 g/dL (3.2-5.5); Magnesium 1.9 mg/dL (1.8-2.5); Potassium 3.4 mEq/L (3.6-5.0); Protein, Total 7.1 g/dL (6.0-8.3)
[2017-12-03] MEDS: HYDRALAZINE HCL 20 MG/ML VIAL IV PRN (06:23)
[2017-12-03] MEDS: INSULIN -REGULAR HUMAN 50 UNIT/0.5 ML ML SQ SCH ×4 (07:30→21:00)
[2017-12-03] MEDS: ARFORMOTEROL TARTRATE 15 MCG/2 ML VIAL.NEB NEB SCH ×2 (08:20→19:49)
[2017-12-03] MEDS: ENOXAPARIN 30 MG/0.3 ML SQ SCH (08:42)
[2017-12-03] MEDS: AMLODIPINE 10 MG TAB PO SCH (08:42)
[2017-12-03] MEDS: GABAPENTIN 300 MG CAP PO SCH ×2 (08:42→20:59)
[2017-12-03] MEDS: PHENYTOIN ER 100 MG CAP PO SCH ×3 (08:42→20:58)
[2017-12-03] MEDS: METOPROLOL TAR 50 MG TAB PO SCH ×2 (08:42→20:58)
[2017-12-03] MEDS: SEVELAMER CARBONATE 800 MG TABLET PO SCH ×3 (08:43→17:00)
[2017-12-03] MEDS: PANTOPRAZOLE 40 MG INJ IVP SCH (08:43)
[2017-12-03] MEDS: ASPIRIN EC 81 MG TAB PO SCH (08:43)
[2017-12-03] MEDS: JUVEN PACKET PO SCH ×2 (08:45→20:59)
[2017-12-03] MEDS: DOXAZOSIN 4 MG TAB PO SCH ×2 (09:02→20:57)
[2017-12-03] MEDS ORDERED: LORazepam 2 MG/ML VIAL IV ONE (11:11)
--- NOTE | 2017-12-03 13:34 | P.CNS ---
Date of Consult: 12/03/17 Reason for Consult: ESRD Requesting Physician: Ariel Mendosa Primary Care Provider: Dr. Vicente; Nephrology-Dr. Guaman; Cardiology-Dr. Gonzalez Chief Complaint: Altered mental status, seizures History of Present Illness: 37-year-old female presented to the emergency room with altered mental status and seizures. Patient with multiple medical problems including end-stage renal disease, obstructive sleep apnea, diabetes, hypertension, hyperlipidemia, history CVA, PAD. Most of the information came from the mother and aunt who was present at bedside. The mother reports that on November 08 the patient had an outpatient procedure to have a left great toe amputated due to gangrene. This was done at [facility]. The patient stayed overnight. She apparently got dialysis at that time. She apparently coded for about 4 min. She was sent to ICU and was placed on the ventilator. During that time the patient had suffered a stroke in 3 areas of the brain. She also had gotten an EEG. The mother thought that the patient had seizures. She is unsure whether the patient got anti she is in medication. The patient was rehabilitated. She stayed at the hospital for about 2 weeks. She was told that there was little that can be done for the patient. She was sent to [facility] custodial last week. During this past week she has had poor appetite. Some nausea and vomiting has no been noted. She has poor memory. She is not able to walk. Today she went to dialysis. She apparently had some mild tremors during her treatment. 1.9 L was taken off. The tremors increased. She came to the emergency room for further evaluation. 09:34 This 37 yrs old Female presents to ER via Unassigned with complaints of myrna seizure at dialysis,shaking, ams, htn. 09:34 The patient's problem is reported as altered mental status, an apparent seizure, myrna weakness. Onset: The symptoms/episode began/occurred just prior to arrival , this morning. Duration: This was a single incident, The episode is continuous. Context: the episode(s) was witnessed, by a bystander, by EMS personnel, occurred dialysis. seizure, no history. The patient presents with confusion, decreased mental status, decreased responsiveness, trouble concentrating. Possible causes: unknown. Character of seizure(s): Loss of consciousness: the patient experienced loss of consciousness, Motor activity: generalized, Incontinence: none, Apnea: the patient did not experience apnea, Circulation: the patient did not experience evidence of pulse disturbance. Allergies morphine Allergy (Intermediate, Verified 07/18/16 08:38) Itching fentanyl Allergy (Verified 07/18/16 08:38) Itching Home medications list reviewed: Yes Home Medications: Metoprolol Tartrate [Lopressor] 50 mg PO BID 04/10/16 Gabapentin [Neurontin*] 600 mg PO BID 06/28/16 Amitriptyline HCl 100 mg PO BEDTIME 12/22/16 traMADol HCL [Ultram*] 50 mg PO TIDP PRN #20 tab 12/24/16 Amlodipine Besylate 10 mg PO DAILY 12/01/17 Aspirin Chewable [Aspirin Chewable*] 81 mg PO DAILY 12/01/17 Atorvastatin Calcium [Lipitor] 20 mg PO BEDTIME 12/01/17 Budesonide/Formoterol Fumarate [Symbicort 160-4.5 Mcg Inhaler] 1 puff IH DAILY 12/01/17 Calcium Carbonate [Tums Regular] 500 mg PO TID PRN 12/01/17 Doxazosin [Cardura] 4 mg PO BID 12/01/17 Esomeprazole Mag Trihydrate [Nexium] 40 mg PO DAILY 12/01/17 Ramipril [Altace] 5 mg PO DAILY AT SUPPER 12/01/17 Sevelamer HCl [Renagel] 1,600 mg PO TIDWM 12/01/17 - Past Medical/Surgical History Diabetic: Yes -: Diabetes mellitus type 2 -: HTN -: End-stage renal disease, hemodialysis ,,Sat; Dr. Guaman-Nephrology. -: History of pancreatitis -: Burkitt's Lymphoma -: History of seizures -: Gastroparesis -: Anemia of chronic disease -: Gastroparesis -: History retinal detachment -: History CVA -: Former tobacco use -: I&D of abcess, SOME LYMPH NODES REMOVED BILAT GROIN -: -: [place] cath - removed -: PERMA CATH PLACEMENT -: G-J TUBE INSERTION, REMOVAL -: dialysis fistula Psychosocial/ Personal History: She is . Has 1 child. She no longer works. She currently is at [facility]. - Family History Father Medical History: Hypertension, Diabetes, Other (see notes) Notes: LYMPHOMA Mother Medical History: Hypertension, Diabetes, Cancer Notes: Breast cancer - Social History Smoking Status: Never smoker Alcohol use: No CD- Drugs: No Caffeine use: No Place of Residence: Skilled Nursing Review of Systems 10-point ROS is otherwise unremarkable General: Weakness, Malaise Respiratory: SOB with Excertion Neurological: Weakness, Seizures Physical Examination Temp Pulse Resp BP Pulse Ox 97.9 F 80 18 138/67 99 12/03/17 04:00 12/03/17 09:02 12/03/17 09:00 12/03/17 09:02 12/03/17 09:00 General: In no apparent distress, Oriented x3 HEENT: Atraumatic, Mucous membr. moist/pink Neck: Supple Respiratory: Clear to auscultation bilaterally, Normal air movement Cardiovascular: No edema, Regular rate/rhythm, No rubs Gastrointestinal: Soft and benign, Non-distended Musculoskeletal: No clubbing, No contractures Integumentary: No rashes, No cyanosis Neurological: Normal speech, Abnormal tone Blood work reviewed in the chart. Initial Hgb 11 Imagings Data: EXAM DESCRIPTION: Kelly Single View12/01/2017 9:44 am CLINICAL HISTORY: sob COMPARISON: January 2017 FINDINGS: The lungs appear clear of acute infiltrate. The heart is probably upper limits normal size IMPRESSION: No acute abnormalities displayed Conclusions/Impression: A/ ESRD on HD. HTN with CKD. DM II with CKD. Diastolic CHF, chronic. Anemia in CKD. LUIS/ Secondary HyperPTH. Hypokalemia. Seizure disorder. P/ Continue current POC and Medications. Follow up with Dr. Thomas for seizure. Arrange for acute HD tomorrow. Encourage nutrition. AM labs. Daily weight. Thank you kindly for the consultation.
--- NOTE | 2017-12-03 14:26 | P.PN ---
Subjective Date of Service: 12/03/17 Primary Care Provider: Dr. Vicente; Nephrology-Dr. Guaman; Cardiology-Dr. Gonzalez Chief Complaint: Altered mental status, seizures The patient seemed have more seizure-like Physical Examination - Vital Signs Temperature: 97.9 F Blood Pressure: 138/67 Pulse: 80 Respirations: 18 Pulse Ox (%): 99 - Physical Exam General: Alert, In no apparent distress HEENT: Atraumatic, PERRLA, EOMI Neck: Supple, JVD not distended Respiratory: Clear to auscultation bilaterally, Normal air movement Cardiovascular: Regular rate/rhythm, Normal S1 S2 Gastrointestinal: Normal bowel sounds, No tenderness Musculoskeletal: No tenderness Integumentary: No rashes Neurological: Normal speech, Normal tone, Normal affect Lymphatics: No axilla or inguinal lymphadenopathy - Studies Medications List Reviewed: Yes Assessment And Plan - Current Problems (Diagnosis) (1) Seizures Current Visit: Yes Status: Acute (2) History of CVA (cerebrovascular accident) Current Visit: Yes Status: Chronic (3) COPD (chronic obstructive pulmonary disease) Current Visit: Yes Status: Suspected Qualifiers: COPD type: chronic bronchitis Chronic bronchitis type: unspecified Qualified Code(s): J42 - Unspecified chronic bronchitis (4) Acute on chronic renal failure Onset Date: 11/22/15 Current Visit: No Status: Acute (5) CKD (chronic kidney disease), stage IV Onset Date: 07/26/15 Current Visit: No Status: Acute (6) ESRD (end stage renal disease) Onset Date: 03/07/16 Current Visit: No Status: Acute (7) Lymphoma, Burkitt's Onset Date: 03/30/15 Current Visit: No Status: Acute - Plan --EEG today --on Dilantin --MRI
--- NOTE | 2017-12-03 15:45 | RAD REPORT ---
EXAM DESCRIPTION: MRI - Brain Wo Cont - 12/03/2017 3:17 pm CLINICAL HISTORY: CVA/seizure COMPARISON: 2014 brain MRI TECHNIQUE: Axial, sagittal, and coronal magnetic images of the brain were obtained. Contrast was not requested FINDINGS: No abnormal signal is present within the brain. Diffusion-weighted/ADC mapping does not reveal evidence of acute infarction. The ventricles are normal caliber. A 3 centimeter fluid collection along the left parietal convexity is unchanged and may represent an a rachnoid cyst. The sinuses and mastoids are clear. IMPRESSION: No acute abnormality is displayed
--- NOTE | 2017-12-03 15:48 | RAD REPORT ---
EXAM DESCRIPTION: MRI - MRA Head Wo Cont - 12/03/2017 3:38 pm CLINICAL HISTORY: CVA COMPARISON: None. TECHNIQUE: Magnetic resonance angiogram of the head was performed. Source images were reviewed and reconstructed at 360 degrees rotation. FINDINGS: The visualized anterior cerebral, middle cerebral, posterior cerebral, basilar and distal internal carotid arteries do not demonstrate a significant stenosis. An aneurysm is not seen IMPRESSION: Unremarkable MRA head
[2017-12-03] MEDS: RAMIPRIL 5 MG CAP PO SCH (17:00)
[2017-12-03] MEDS ORDERED: FOSPHENYTOIN PE 500 MG in NA CHLORIDE 0.9% 100 ML IV ONE (17:53)
[2017-12-03] MEDS ORDERED: MANNITOL 25% 12.5 GM/50 ML VIAL IV PRN (19:08)
[2017-12-03] MEDS ORDERED: NA CHLORIDE 0.9% 1,000 ML IV PRN (19:08)
[2017-12-03] MEDS ORDERED: ALBUMIN HUMAN 25% 50 ML IV SCH (20:00)
[2017-12-03] MEDS: ATORVASTATIN 40 MG TAB PO SCH (20:58)
[2017-12-03] MEDS: AMITRIPTYLINE 50 MG TAB PO SCH (20:59)
--- NOTE | 2017-12-03 23:11 | PN ---
Date of Progress Note: 12/03/2017 Reason: Seizure. Interval History: The patient is stable. Brain MRI, no stroke. EEG, mild generalized slowing. The patient had a lot of episodes described by the dietetic technician registered as shakiness, not associated with epilepti form abnormalities. Dilantin level is trending downward and is down to 3.3 today, so we will increas e the maintenance dose and given extra fosphenytoin 500 IV. On exam, the patient is initially restin g with her eyes closed and upon entering the room, she has a lot of focal mild clonus involving the e xtremities, arms and lower extremities. Moderate asterixis on exam consistent with mild clonus, whic h I suspect is likely the uremic type myoclonus and not epileptiform. Extremity strength full. Sens ation decreased distally. Reflexes trace. Pertinent Laboratory Data: Dilantin level this morning 3.3. EEG is noted, generalized slowing. No epileptiform abnormalities. The patient was having myoclonic jerking as we see on bedside testing as well. Plan: She is going to dialyze tomorrow, which I think will improve the myoclonic jerks. Increase ma intenance Dilantin to 400 mg daily. We will continue to follow with you. LOLIS/ASCENCION Voice ID: [id number] Report ID: [id number]
[2017-12-04 05:17] LABS: Absolute Lymphocytes (CBC) 1.8 K/uL (0.7-4.9); Absolute Monocytes 0.7 K/uL (0.1-1.3); Absolute Neutrophil 6.3 K/uL (1.8-8.0); Basophils % 0.3 % (0-1.3); Eosinophils % 3.7 % (0-4.4); Hematocrit 27.2 % (36.0-45.0); Lymphocytes % 19.6 % (15.3-44.8); MCH 31.8 pg (27.0-35.0); MCV 95.4 fL (80-100); MPV 9.7 fL (7.6-11.3); Monocytes % 7.7 % (3.3-12.3); RBC Red Blood Cell Count 2.85 M/uL (3.86-4.86)
[2017-12-04 05:46] LABS: Albumin 3.2 g/dL (3.2-5.5); Magnesium 1.8 mg/dL (1.8-2.5); Phenytoin (Dilantin) Level 5.1 ug/ml (10.0-20.0); Phosphorus 5.3 mg/dL (2.5-4.3); Potassium 3.7 mEq/L (3.6-5.0); Protein, Total 7.1 g/dL (6.0-8.3); Uric Acid 7.2 mg/dL (2.6-8.0)
[2017-12-04] MEDS ORDERED: VANCOMYCIN/NS 1 gm 1 GM/250 ML BAG IVPB SCH (07:00)
[2017-12-04] MEDS ORDERED: VANCOMYCIN/NS 1 gm 1 GM/250 ML BAG IVPB ONE (07:00)
[2017-12-04] MEDS: INSULIN -REGULAR HUMAN 50 UNIT/0.5 ML ML SQ SCH ×4 (07:16→21:00)
[2017-12-04] MEDS: AMLODIPINE 10 MG TAB PO SCH (07:38)
[2017-12-04] MEDS: METOPROLOL TAR 50 MG TAB PO SCH ×2 (07:38→21:29)
[2017-12-04] MEDS: DOXAZOSIN 4 MG TAB PO SCH ×2 (07:38→21:28)
[2017-12-04] MEDS: ARFORMOTEROL TARTRATE 15 MCG/2 ML VIAL.NEB NEB SCH ×2 (07:49→19:57)
[2017-12-04] MEDS: PANTOPRAZOLE 40 MG INJ IVP SCH (08:21)
[2017-12-04] MEDS: ENOXAPARIN 30 MG/0.3 ML SQ SCH (08:21)
[2017-12-04] MEDS: SEVELAMER CARBONATE 800 MG TABLET PO SCH ×3 (08:21→17:29)
[2017-12-04] MEDS: GABAPENTIN 300 MG CAP PO SCH ×2 (08:22→21:30)
[2017-12-04] MEDS: ASPIRIN EC 81 MG TAB PO SCH (08:22)
[2017-12-04] MEDS: JUVEN PACKET PO SCH ×2 (08:22→21:00)
[2017-12-04] MEDS: PHENYTOIN ER 100 MG CAP PO SCH ×4 (08:22→21:29)
[2017-12-04] MEDS: EPOETIN ALFA 10,000 UNIT/ML VIAL IV SCH (09:07)
--- NOTE | 2017-12-04 12:20 | EEG ---
CHART: [id number] TEST ID#: [id number] DATE OF STUDY: 12/03/2017 THE EEG WAS RECORDED PORTABLE IN THE ICU ON A 17 CHANNEL MACHINE. ELECTRODES WERE APPLIED IN THE USUAL MANNER USING THE INTERNATIONAL 10-20 SYSTEM. THE WAKING BACKGROUND RHYTHM IN THIS RECORD CONSISTS OF FAIRLY WELL DEVELOPED AND FAIRLY WELL ORGANIZED WAVES OF UP TO 9 HZ., MAXIMAL IN THE POSTERIOR HEAD REGIONS WHICH ATTENUATE NORMALLY WITH EYE OPENING. IN DROWSINESS THE BACKGROUND DROPS TO 8 HZ. THERE ARE NO FOCAL OR LATERALIZING FEATURES. NO EPILEPTIFORM ACTIVITY APPEARS. SLEEP DID NOT OCCUR. HYPERVENTILATION WAS NOT PERFORMED. PHOTIC STIMULATION PRODUCED POOR DRIVING BILATERALLY. IMPRESSION: ABNORMAL EEG BECAUSE OF GENERALIZED SLOWING OF THE BACKGROUND. THE ABOVE SUGGETS DIFFUSE CEREBRAL DYSFUNCTION.
--- NOTE | 2017-12-04 15:30 | P.PN ---
Subjective Date of Service: 12/04/17 Primary Care Provider: Dr. Vicente; Nephrology-Dr. Guaman; Cardiology-Dr. Gonzalez Chief Complaint: Altered mental status, seizures The patient is doing better except persistent clonus Physical Examination - Vital Signs Temperature: 98.7 F Blood Pressure: 141/71 Pulse: 80 Respirations: 18 Pulse Ox (%): 94 - Physical Exam General: Alert, In no apparent distress HEENT: Atraumatic, PERRLA, EOMI Neck: Supple, JVD not distended Respiratory: Clear to auscultation bilaterally, Normal air movement Cardiovascular: Regular rate/rhythm, Normal S1 S2 Gastrointestinal: Normal bowel sounds, No tenderness Musculoskeletal: No tenderness Integumentary: No rashes Neurological: Normal speech, Normal tone, Normal affect Lymphatics: No axilla or inguinal lymphadenopathy - Studies Medications List Reviewed: Yes Assessment And Plan - Current Problems (Diagnosis) (1) Seizures Onset Date: 12/03/17 Current Visit: Yes Status: Acute (2) History of CVA (cerebrovascular accident) Onset Date: 12/03/17 Current Visit: Yes Status: Chronic (3) COPD (chronic obstructive pulmonary disease) Current Visit: Yes Status: Suspected Qualifiers: COPD type: chronic bronchitis Chronic bronchitis type: unspecified Qualified Code(s): J42 - Unspecified chronic bronchitis (4) Acute on chronic renal failure Onset Date: 11/22/15 Current Visit: No Status: Acute (5) CKD (chronic kidney disease), stage IV Onset Date: 07/26/15 Current Visit: No Status: Acute (6) ESRD (end stage renal disease) Onset Date: 03/07/16 Current Visit: No Status: Acute (7) Lymphoma, Burkitt's Onset Date: 03/30/15 Current Visit: No Status: Acute - Plan --on hemodialysis --on Dilantin and check Dilantin level --transfer patient to medical floor
[2017-12-04] MEDS: RAMIPRIL 5 MG CAP PO SCH (17:30)
--- NOTE | 2017-12-04 18:21 | P.PN ---
Date of Service: 12/04/17 Vital Signs Temp Pulse Resp BP Pulse Ox 98.5 F 86 18 169/77 H 95 12/04/17 16:00 12/04/17 17:30 12/04/17 16:00 12/04/17 17:30 12/04/17 16:00 Medications Acetaminophen (Tylenol -Extra Strength) 500 mg PO Q4HP PRN PRN Reason: [id number] Stop: 12/31/17 11:04 Acetaminophen (Tylenol Suppository) 650 mg NC Q6HP PRN PRN Reason: [id number] Stop: 12/31/17 11:04 Albuterol Sulfate (Proventil 0.083% Neb Soln) 2.5 mg NEB [id number] PRN PRN Reason: SHORTNESS OF BREATH Stop: 12/31/17 14:01 Last Admin: 12/02/17 08:24 Dose: 2.5 mg Amitriptyline HCl (Elavil) 100 mg PO BEDTIME NELIA Stop: 01/01/18 21:01 Last Admin: 12/03/17 20:59 Dose: 100 mg Amlodipine Besylate (Norvasc) 10 mg PO DAILY NELIA Stop: 01/02/18 09:01 Last Admin: 12/04/17 07:38 Dose: Not Given Arformoterol Tartrate (Brovana) 15 mcg NEB BIDRESP NELIA Stop: 12/31/17 20:01 Last Admin: 12/04/17 07:49 Dose: 15 mcg Aspirin (Aspirin Ec) 81 mg PO DAILY NELIA Stop: 01/01/18 09:01 Last Admin: 12/04/17 08:22 Dose: 81 mg Atorvastatin Calcium (Lipitor) 40 mg PO BEDTIME NELIA Stop: 12/31/17 21:01 Last Admin: 12/03/17 20:58 Dose: 40 mg Dextrose (Dextrose 50% Syringe) 12.5 gm IV PRN PRN PRN Reason: HYPOGLYCEMIA PROTOCOL Stop: 12/31/17 11:28 Last Admin: 12/01/17 21:41 Dose: 12.5 gm Doxazosin Mesylate (Cardura) 4 mg PO BID NELIA Stop: 01/01/18 10:01 Last Admin: 12/04/17 07:38 Dose: Not Given Enoxaparin Sodium (Lovenox 30 Mg Inj) 30 mg SQ DAILY NELIA Stop: 12/31/17 12:01 Last Admin: 12/04/17 08:21 Dose: 30 mg Epoetin Chalo (Procrit) 10,000 unit IV EVERY HD NELIA Stop: 01/02/18 19:16 Last Admin: 12/04/17 09:07 Dose: 10,000 unit Gabapentin (Neurontin) 600 mg PO BID NELIA Stop: 01/01/18 10:01 Last Admin: 12/04/17 08:22 Dose: 600 mg Glucagon (Glucagen) 1 mg IM 1X PRN PRN Reason: HYPOGLYCEMIA Stop: 12/31/17 11:28 Heparin Sodium (Porcine) (Heparin 1,000 Units/Ml) 6,000 unit IJ EVERY HD PRN PRN Reason: FLUSH AFTER EACH USE Stop: 01/02/18 19:09 Last Admin: 12/04/17 08:44 Dose: 6,000 unit Hydralazine HCl (Apresoline) 10 mg IV Q6HP PRN PRN Reason: HIGH BP Stop: 12/31/17 11:04 Last Admin: 12/03/17 06:23 Dose: 10 mg Albumin Human (Albumin 25%) 50 mls @ 100 mls/hr IV EVERY HD NELIA Stop: 01/02/18 20:01 Insulin Human Regular (Novolin -R) 0 unit SQ ACHS NELIA PRN Reason: Protocol Stop: 12/31/17 11:31 Last Admin: 12/04/17 16:21 Dose: Not Given Ipratropium Waldron (Atrovent Neb) 0.5 mg NEB [id number] PRN PRN Reason: SHORTNESS OF BREATH Stop: 12/31/17 12:01 L-Arginine/L-Glutamine/HMB (Irving) 1 pkt PO BID NELIA Stop: 01/01/18 21:01 Last Admin: 12/04/17 08:22 Dose: 1 pkt Lorazepam (Ativan) 2 mg IV Q2H PRN PRN Reason: SEIZURES Stop: 12/31/17 11:04 Mannitol (Mannitol 12.5 Gm/50 Ml Vial) 12.5 gm IV EVERY HD PRN PRN Reason: BP support at hemodialysis Stop: 01/02/18 19:09 Metoprolol Tartrate (Lopressor) 50 mg PO BID [facility] Stop: 01/01/18 10:01 Last Admin: 12/04/17 07:38 Dose: Not Given Ondansetron HCl (Zofran) 4 mg IV Q6HP PRN PRN Reason: NAUSEA / VOMITING Stop: 12/31/17 11:04 Pantoprazole Sodium (Protonix Inj) 40 mg IVP DAILY NELIA Stop: 01/01/18 09:01 Last Admin: 12/04/17 08:21 Dose: 40 mg Phenytoin Sodium (Dilantin Er Cap) 100 mg PO QID NELIA Stop: 01/02/18 21:01 Last Admin: 12/04/17 17:30 Dose: 100 mg Ramipril (Altace) 5 mg PO DAILY AT SUPPER NELIA Stop: 01/01/18 17:01 Last Admin: 12/04/17 17:30 Dose: 5 mg Sevelamer Carbonate (Renvela) 1,600 mg PO TIDWM NELIA Stop: 01/01/18 12:01 Last Admin: 12/04/17 17:29 Dose: 1,600 mg Sodium Chloride (Normal Saline Flush) 10 ml IV BID NELIA Stop: 12/31/17 21:01 Last Admin: 12/04/17 08:22 Dose: 10 ml Sodium Chloride (Sodium Chloride 10 Ml Inj) 10 ml IV UD PRN PRN Reason: Diluant Stop: 12/31/17 11:04 Tramadol HCl (Ultram) 50 mg PO TIDP PRN PRN Reason: PAIN Stop: 01/01/18 09:16 Microbiology Results 12/01/17 09:50 Blood - Other Aerobic Blood Culture - Preliminary 12/01/17 09:50 Blood - Other Gram Stain - Preliminary 12/01/17 09:50 Blood - Other Anaerobic Blood Culture - Preliminary No growth in 24 hours. 12/01/17 09:30 Blood - Other Aerobic Blood Culture - Preliminary No growth in 24 hours. 12/01/17 09:30 Blood - Other Anaerobic Blood Culture - Preliminary No growth in 24 hours. Assessment/ Plan: Nephrology. Feeling better. CPS stable without CP or SOB. No acute events overnight. Persistent clonus. Vitals, medications, blood work and imaging reviewed in the chart. General: In no apparent distress, Oriented x3 HEENT: Atraumatic, Mucous membr. moist/pink Neck: Supple Respiratory: Clear to auscultation bilaterally, Normal air movement Cardiovascular: No edema, Regular rate/rhythm, No rubs Gastrointestinal: Soft and benign, Non-distended Musculoskeletal: No clubbing, No contractures Integumentary: No rashes, No cyanosis Neurological: Normal speech, Abnormal tone Blood work reviewed in the chart. Initial Hgb 11 Imagings Data: EXAM DESCRIPTION: Kelly Single View12/01/2017 9:44 am CLINICAL HISTORY: sob COMPARISON: January 2017 FINDINGS: The lungs appear clear of acute infiltrate. The heart is probably upper limits normal size IMPRESSION: No acute abnormalities displayed Conclusions/Impression: A/ ESRD on HD. HTN with CKD. DM II with CKD. Diastolic CHF, chronic. Anemia in CKD. LUIS/ Secondary HyperPTH. Hypokalemia. Seizure disorder. P/ Continue current POC and Medications. Follow up with Dr. Thomas for seizure. Seen and examined on HD. Tolerating tx. Encourage nutrition. PT as tolerated. AM labs. Daily weight.
[2017-12-04] MEDS: TEMAZEPAM 15 MG CAP PO PRN (21:28)
[2017-12-04] MEDS: AMITRIPTYLINE 50 MG TAB PO SCH (21:30)
[2017-12-04] MEDS: ATORVASTATIN 40 MG TAB PO SCH (21:30)
--- NOTE | 2017-12-05 | PN ---
Date of Progress Note: 12/04/2017 Time: 1930 hours. Reason: Seizures. Interval History: Ms. Christian's myoclonus is a little better after she got dialyzed. BUN was up to 6 1 before dialysis, slightly better today at 5.1. She is getting vancomycin as well. [QAMARKER] was 31. Physical Examination: She is awake, alert, oriented. Pupils reactive. Ocular motion full. Griffin full. Strength full. Only rare myoclonus, some asterixis/negative myoclonus. Reflexes absent. Toes are downgoing. Impression: 1.New onset seizures, now recurrent. 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 Plan: Continue to follow Dilantin level daily. Continue Dilantin 400 mg daily. We will continue to follow with you. LOLIS/ASCENCION Voice ID: [id number] Report ID: [id number]
[2017-12-05 04:52] LABS: Absolute Lymphocytes (CBC) 1.7 K/uL (0.7-4.9); Absolute Monocytes 0.9 K/uL (0.1-1.3); Absolute Neutrophil 6.5 K/uL (1.8-8.0); Basophils % 0.3 % (0-1.3); Eosinophils % 3.8 % (0-4.4); Hematocrit 29.5 % (36.0-45.0); Lymphocytes % 18.1 % (15.3-44.8); MCH 32.3 pg (27.0-35.0); MCV 95.9 fL (80-100); MPV 9.9 fL (7.6-11.3); Monocytes % 9.1 % (3.3-12.3); RBC Red Blood Cell Count 3.08 M/uL (3.86-4.86)
[2017-12-05 05:22] LABS: Albumin 3.2 g/dL (3.2-5.5); Bilirubin Total 0.9 mg/dL (0.3-1.2); Magnesium 1.8 mg/dL (1.8-2.5); Phenytoin (Dilantin) Level 3.4 ug/ml (10.0-20.0); Potassium 4.2 mEq/L (3.6-5.0); Protein, Total 7.6 g/dL (6.0-8.3)
[2017-12-05] MEDS: INSULIN -REGULAR HUMAN 50 UNIT/0.5 ML ML SQ SCH ×4 (07:30→21:00)
[2017-12-05] MEDS ORDERED: MAGNESIUM SULFATE 1 gm IVPB 1 GM/100 ML BAG IV ONE (07:40)
[2017-12-05] MEDS: ARFORMOTEROL TARTRATE 15 MCG/2 ML VIAL.NEB NEB SCH ×2 (08:01→19:39)
[2017-12-05] MEDS ORDERED: DOXAZOSIN 2 MG TAB ONE (08:28)
[2017-12-05] MEDS: ENOXAPARIN 30 MG/0.3 ML SQ SCH (08:49)
[2017-12-05] MEDS: AMLODIPINE 10 MG TAB PO SCH (08:50)
[2017-12-05] MEDS: PHENYTOIN ER 100 MG CAP PO SCH ×4 (08:50→21:17)
[2017-12-05] MEDS: METOPROLOL TAR 50 MG TAB PO SCH ×2 (08:50→21:16)
[2017-12-05] MEDS: PANTOPRAZOLE 40 MG INJ IVP SCH (08:51)
[2017-12-05] MEDS: GABAPENTIN 300 MG CAP PO SCH ×2 (08:51→21:16)
[2017-12-05] MEDS: ASPIRIN EC 81 MG TAB PO SCH (08:51)
[2017-12-05] MEDS: SEVELAMER CARBONATE 800 MG TABLET PO SCH ×4 (08:51→17:18)
[2017-12-05] MEDS: DOXAZOSIN 4 MG TAB PO SCH ×2 (08:54→21:17)
[2017-12-05] MEDS: JUVEN PACKET PO SCH ×2 (09:00→21:00)
[2017-12-05] MEDS: TRAMADOL HCL 50 MG TAB PO PRN ×2 (13:29→19:28)
--- NOTE | 2017-12-05 15:51 | P.PN ---
Subjective Date of Service: 12/05/17 Primary Care Provider: Dr. Vicente; Nephrology-Dr. Guaman; Cardiology-Dr. Gonzalez Chief Complaint: Altered mental status, seizures The patient is doing better today H verbalize no new complaints Physical Examination - Vital Signs Temperature: 99.3 F Blood Pressure: 134/67 Pulse: 78 Respirations: 16 Pulse Ox (%): 90 - Physical Exam General: Alert, In no apparent distress HEENT: Atraumatic, PERRLA, EOMI Neck: Supple, JVD not distended Respiratory: Clear to auscultation bilaterally, Normal air movement Cardiovascular: Regular rate/rhythm, Normal S1 S2 Gastrointestinal: Normal bowel sounds, No tenderness Musculoskeletal: No tenderness Integumentary: No rashes Neurological: Normal speech, Normal tone, Normal affect Lymphatics: No axilla or inguinal lymphadenopathy - Studies Medications List Reviewed: Yes Assessment And Plan - Current Problems (Diagnosis) (1) Seizures Onset Date: 12/03/17 Current Visit: Yes Status: Acute (2) History of CVA (cerebrovascular accident) Onset Date: 12/03/17 Current Visit: Yes Status: Chronic (3) COPD (chronic obstructive pulmonary disease) Current Visit: Yes Status: Suspected Qualifiers: COPD type: chronic bronchitis Chronic bronchitis type: unspecified Qualified Code(s): J42 - Unspecified chronic bronchitis (4) Acute on chronic renal failure Onset Date: 11/22/15 Current Visit: No Status: Acute (5) CKD (chronic kidney disease), stage IV Onset Date: 07/26/15 Current Visit: No Status: Acute (6) ESRD (end stage renal disease) Onset Date: 03/07/16 Current Visit: No Status: Acute (7) Lymphoma, Burkitt's Onset Date: 03/30/15 Current Visit: No Status: Acute - Plan --on hemodialysis --on Dilantin and check Dilantin level
[2017-12-05] MEDS: RAMIPRIL 5 MG CAP PO SCH (17:18)
[2017-12-05] MEDS ORDERED: ARFORMOTEROL TARTRATE 15 MCG/2 ML VIAL.NEB ONE (19:57)
[2017-12-05 20:29] LABS: HBsAG Nonreactive (Nonreactive)
[2017-12-05] MEDS: ATORVASTATIN 40 MG TAB PO SCH (21:16)
[2017-12-05] MEDS: AMITRIPTYLINE 50 MG TAB PO SCH (21:17)
[2017-12-06] MEDS: LORazepam 2 MG/ML VIAL IV PRN ×2 (02:10→12:53)
--- NOTE | 2017-12-06 04:16 | PN ---
Date of Progress Note: 12/05/2017 Subjective: The patient is seen at bedside. No events reported. The patient appears somewhat withd rawn, is able to answer questions appropriately, but has very slow affect. She denies any fevers, ch ills, chest pain, shortness of breath, nausea, vomiting or diarrhea. Objective: Vital Signs: Blood pressure is 152/77, pulse 81, afebrile. General: No acute distress. Heart: Regular rhythm. No murmurs, rubs, or gallops. Lungs: Clear to auscultation bilaterally. Abdomen: Soft, nontender, and nondistended. Positive bowel sounds x4. Extremities: No significant edema. Laboratory Data: CBC reviewed, stable. Serum chemistry; sodium 139, potassium 4.2, chloride 101, CO 2 30, BUN 31, creatinine 6.15, glucose 148, alkaline phosphatase 123, albumin is 3.2. Vancomycin tro ugh from December 04 was noted to be 31. Current Medications: Include acetaminophen, albuterol, amitriptyline, amlodipine, aspirin, atorvasta tin, doxazosin, enoxaparin, , gabapentin, glucagon, heparin, hydralazine, Atrovent nebulize rs as needed, Irving 1 packet b.i.d., Ativan 2 mg IV p.r.n., metoprolol 50 mg b.i.d., Zofran p.r.n., P rotonix 40 mg daily, Ramipril 5 mg every evening, Dilantin 100 mg 4 times daily, sevelamer 1600 mg 3 times with meals, temazepam 15 mg as needed, tramadol 50 mg t.i.d. p.r.n., and vancomycin 250 mL IV a fter each dialysis, which was discontinued. Impression: 1.End-stage renal disease, on hemodialysis. 2.New onset seizures. 3.Altered mental status. 4.Bronchitis. 5.History of Burkitt lymphoma. Plan: Continue routine dialysis. Continue current antihypertensive agents. Continue current anti-a nemia management. Continue renal diet. Continue neurology followup. SE/MODL Voice ID: [id number] Report ID: [id number]
[2017-12-06 06:37] LABS: Absolute Lymphocytes (CBC) 1.7 K/uL (0.7-4.9); Absolute Monocytes 0.6 K/uL (0.1-1.3); Absolute Neutrophil 4.3 K/uL (1.8-8.0); Basophils % 0.6 % (0-1.3); Eosinophils % 5.1 % (0-4.4); Lymphocytes % 24.5 % (15.3-44.8); MCH 31.3 pg (27.0-35.0); MCV 97.2 fL (80-100); MPV 10.1 fL (7.6-11.3); Monocytes % 8.8 % (3.3-12.3); RBC Red Blood Cell Count 3.08 M/uL (3.86-4.86)
[2017-12-06 07:00] LABS: Albumin 3.1 g/dL (3.2-5.5); Bilirubin Total 0.7 mg/dL (0.3-1.2); Magnesium 2.1 mg/dL (1.8-2.5); Phenytoin (Dilantin) Level 2.6 ug/ml (10.0-20.0); Potassium 4.7 mEq/L (3.6-5.0); Protein, Total 7.2 g/dL (6.0-8.3)
[2017-12-06] MEDS: ARFORMOTEROL TARTRATE 15 MCG/2 ML VIAL.NEB NEB SCH ×2 (07:25→20:42)
[2017-12-06] MEDS: INSULIN -REGULAR HUMAN 50 UNIT/0.5 ML ML SQ SCH ×4 (07:30→21:00)
[2017-12-06] MEDS: AMLODIPINE 10 MG TAB PO SCH (09:00)
[2017-12-06] MEDS: DOXAZOSIN 4 MG TAB PO SCH ×2 (09:00→20:05)
[2017-12-06] MEDS: METOPROLOL TAR 50 MG TAB PO SCH ×2 (09:00→20:06)
[2017-12-06] MEDS ORDERED: NA CHLORIDE 0.9% 1,000 ML IV PRN (09:05)
[2017-12-06] MEDS ORDERED: DOXAZOSIN 2 MG TAB ONE (09:13)
[2017-12-06] MEDS: ENOXAPARIN 30 MG/0.3 ML SQ SCH (09:13)
[2017-12-06] MEDS: PANTOPRAZOLE 40 MG INJ IVP SCH (09:13)
[2017-12-06] MEDS: GABAPENTIN 300 MG CAP PO SCH ×2 (09:14→20:06)
[2017-12-06] MEDS: SEVELAMER CARBONATE 800 MG TABLET PO SCH ×3 (09:17→16:30)
[2017-12-06] MEDS: ASPIRIN EC 81 MG TAB PO SCH (09:17)
[2017-12-06] MEDS: PHENYTOIN ER 100 MG CAP PO SCH ×4 (09:18→20:05)
[2017-12-06] MEDS: JUVEN PACKET PO SCH ×2 (09:18→20:07)
[2017-12-06] MEDS: EPOETIN ALFA 10,000 UNIT/ML VIAL IV SCH (11:37)
[2017-12-06] MEDS: HYDRALAZINE HCL 20 MG/ML VIAL IV PRN (16:31)
[2017-12-06] MEDS: RAMIPRIL 5 MG CAP PO SCH (17:22)
--- NOTE | 2017-12-06 17:30 | P.PN ---
Subjective Date of Service: 12/06/17 Primary Care Provider: Dr. Vicente; Nephrology-Dr. Guaman; Cardiology-Dr. Gonzalez Chief Complaint: Altered mental status, seizures The patient is doing better today H verbalize no new complaints Physical Examination - Vital Signs Temperature: 97.6 F Blood Pressure: 158/78 Pulse: 86 Respirations: 20 Pulse Ox (%): 97 - Physical Exam General: Alert, In no apparent distress HEENT: Atraumatic, PERRLA, EOMI Neck: Supple, JVD not distended Respiratory: Clear to auscultation bilaterally, Normal air movement Cardiovascular: Regular rate/rhythm, Normal S1 S2 Gastrointestinal: Normal bowel sounds, No tenderness Musculoskeletal: No tenderness Integumentary: No rashes Neurological: Normal speech, Normal tone, Normal affect Lymphatics: No axilla or inguinal lymphadenopathy - Studies Microbiology Data (last 24 hrs): 12/01/17 09:50 Blood - Other Aerobic Blood Culture - Final 12/01/17 09:50 Blood - Other Gram Stain - Final 12/01/17 09:50 Blood - Other Anaerobic Blood Culture - Final No growth in 5 days. 12/01/17 09:30 Blood - Other Aerobic Blood Culture - Final No growth in 5 days. 12/01/17 09:30 Blood - Other Anaerobic Blood Culture - Final No growth in 5 days. Medications List Reviewed: Yes Assessment And Plan - Current Problems (Diagnosis) (1) Seizures Onset Date: 12/03/17 Current Visit: Yes Status: Acute (2) History of CVA (cerebrovascular accident) Onset Date: 12/03/17 Current Visit: Yes Status: Chronic (3) COPD (chronic obstructive pulmonary disease) Current Visit: Yes Status: Suspected Qualifiers: COPD type: chronic bronchitis Chronic bronchitis type: unspecified Qualified Code(s): J42 - Unspecified chronic bronchitis (4) Acute on chronic renal failure Onset Date: 11/22/15 Current Visit: No Status: Acute (5) CKD (chronic kidney disease), stage IV Onset Date: 07/26/15 Current Visit: No Status: Acute (6) ESRD (end stage renal disease) Onset Date: 03/07/16 Current Visit: No Status: Acute (7) Lymphoma, Burkitt's Onset Date: 03/30/15 Current Visit: No Status: Acute - Plan --on hemodialysis --on Dilantin and check Dilantin level --discharged to or assisted tomorrow
[2017-12-06] MEDS: AMITRIPTYLINE 50 MG TAB PO SCH (20:06)
[2017-12-06] MEDS: ACETAMINOPHEN 500 MG TAB PO PRN (20:06)
[2017-12-06] MEDS: ATORVASTATIN 40 MG TAB PO SCH (20:07)
[2017-12-06] MEDS ORDERED: ARFORMOTEROL TARTRATE 15 MCG/2 ML VIAL.NEB ONE (20:59)
[2017-12-06] MEDS: TEMAZEPAM 15 MG CAP PO PRN (21:34)
[2017-12-07 07:21] LABS: ALT/SGPT 13 IU/L (10-60); AST/SGOT 15 IU/L (10-42); Albumin 3.4 g/dL (3.2-5.5); Alkaline Phosphatase 130 IU/L (42-121); BUN Blood Urea Nitrogen 33 mg/dL (6-20); Bicarbonate 26 mEq/L (21-31); Bilirubin Total 0.9 mg/dL (0.3-1.2); Glomerular Filtration Rate 9 mL/min (=/>90); Glucose Level 129 mg/dL (65-120); Potassium 4.2 mEq/L (3.6-5.0); Protein, Total 7.9 g/dL (6.0-8.3); Sodium Level 135 mEq/L (135-145)
[2017-12-07 07:22] LABS: Phenytoin (Dilantin) Level < 2.5 ug/ml (10.0-20.0)
[2017-12-07] MEDS: INSULIN -REGULAR HUMAN 50 UNIT/0.5 ML ML SQ SCH ×4 (07:30→21:00)
[2017-12-07] MEDS: ARFORMOTEROL TARTRATE 15 MCG/2 ML VIAL.NEB NEB SCH ×2 (07:52→19:36)
[2017-12-07] MEDS: DOXAZOSIN 4 MG TAB PO SCH ×2 (09:00→20:47)
[2017-12-07] MEDS ORDERED: DOXAZOSIN 2 MG TAB ONE ×2 (09:31→20:41)
[2017-12-07] MEDS: ENOXAPARIN 30 MG/0.3 ML SQ SCH (10:48)
[2017-12-07] MEDS: SEVELAMER CARBONATE 800 MG TABLET PO SCH ×3 (10:48→17:19)
[2017-12-07] MEDS: GABAPENTIN 300 MG CAP PO SCH ×2 (10:50→20:43)
[2017-12-07] MEDS: PHENYTOIN ER 100 MG CAP PO SCH (10:50)
[2017-12-07] MEDS: METOPROLOL TAR 50 MG TAB PO SCH ×2 (10:50→20:44)
[2017-12-07] MEDS: AMLODIPINE 10 MG TAB PO SCH (10:50)
[2017-12-07] MEDS: ASPIRIN EC 81 MG TAB PO SCH (10:51)
[2017-12-07] MEDS: PANTOPRAZOLE 40 MG INJ IVP SCH (10:51)
[2017-12-07] MEDS: JUVEN PACKET PO SCH ×2 (10:52→20:45)
[2017-12-07] MEDS ORDERED: PHENYTOIN ER 100 MG CAP PO SCH ×3 (13:00→21:00)
[2017-12-07] MEDS ORDERED: VALPROATE SODIUM INJ 500 MG in NA CHLORIDE 0.9% 100 ML IV ONE (13:08)
[2017-12-07] MEDS: TRAMADOL HCL 50 MG TAB PO PRN ×2 (13:23→20:44)
[2017-12-07] MEDS: RAMIPRIL 5 MG CAP PO SCH (17:18)
[2017-12-07] MEDS: ACETAMINOPHEN 500 MG TAB PO PRN (17:23)
--- NOTE | 2017-12-07 18:09 | P.PN ---
Subjective Date of Service: 12/07/17 Primary Care Provider: Dr. iVcente; Nephrology-Dr. Guaman; Cardiology-Dr. Gonzalez Chief Complaint: Altered mental status, seizures The patient is doing fair and she has a no new complaints Physical Examination - Vital Signs Temperature: 97.5 F Blood Pressure: 116/69 Pulse: 79 Respirations: 20 Pulse Ox (%): 97 - Physical Exam General: Alert, In no apparent distress HEENT: Atraumatic, PERRLA, EOMI Neck: Supple, JVD not distended Respiratory: Clear to auscultation bilaterally, Normal air movement Cardiovascular: Regular rate/rhythm, Normal S1 S2 Gastrointestinal: Normal bowel sounds, No tenderness Musculoskeletal: No tenderness Integumentary: No rashes Neurological: Normal speech, Normal tone, Normal affect Lymphatics: No axilla or inguinal lymphadenopathy - Studies Medications List Reviewed: Yes Assessment And Plan - Current Problems (Diagnosis) (1) Seizures Onset Date: 12/03/17 Current Visit: Yes Status: Acute (2) History of CVA (cerebrovascular accident) Onset Date: 12/03/17 Current Visit: Yes Status: Chronic (3) COPD (chronic obstructive pulmonary disease) Current Visit: Yes Status: Suspected Qualifiers: COPD type: chronic bronchitis Chronic bronchitis type: unspecified Qualified Code(s): J42 - Unspecified chronic bronchitis (4) Acute on chronic renal failure Onset Date: 11/22/15 Current Visit: No Status: Acute (5) CKD (chronic kidney disease), stage IV Onset Date: 07/26/15 Current Visit: No Status: Acute (6) ESRD (end stage renal disease) Onset Date: 03/07/16 Current Visit: No Status: Acute (7) Lymphoma, Burkitt's Onset Date: 03/30/15 Current Visit: No Status: Acute - Plan --on hemodialysis --on Dilantin, Dilantin level is still sub therapeutic; I take the liberty of increasing the Dilantin dose from 400 mg per day to 600 mg per day --discharged to or longterm soon
[2017-12-07] MEDS ORDERED: ARFORMOTEROL TARTRATE 15 MCG/2 ML VIAL.NEB ONE (19:33)
[2017-12-07] MEDS: DIVALPROEX DR 500MG TAB PO SCH (20:43)
[2017-12-07] MEDS: ATORVASTATIN 40 MG TAB PO SCH (20:43)
[2017-12-07] MEDS: AMITRIPTYLINE 50 MG TAB PO SCH (20:43)
[2017-12-07] MEDS: TEMAZEPAM 15 MG CAP PO PRN (20:45)
--- NOTE | 2017-12-07 21:27 | PN ---
Reason: Seizures. Myoclonus. Interval History: The patient continues to have fairly frequent myoclonus. We gave some IV Depakote , and it is a little bit better. Depakote level persistently low, probably difficulties with absorpt ion. We will just transition her over to Depakote, an anticonvulsant long-term that may take an extr a day to accomplish. Check the level in the morning of the Depakote. Physical Examination: Vital Signs: On exam, she is afebrile. Vitals are stable. General: Awake, alert, oriented. HEENT: Pupils reactive. Ocular motion full. Griffin full. Face symmetric. Tongue midline. Soft p alate elevates bilaterally. Extremity: Strength full. Sensation decreased distally. Reflexes trace. Left toe surgically absen t. Impression: Seizure. Myoclonus. Plan: Transition over to Depakote as noted. LOLIS/ASCENCION Voice ID: [id number] Report ID: [id number]
--- NOTE | 2017-12-07 21:43 | P.PN ---
Date of Service: 12/06/17 Vital Signs Temp Pulse Resp BP Pulse Ox 97.5 F 74 20 157/79 H 97 12/07/17 18:09 12/07/17 20:44 12/07/17 18:09 12/07/17 20:44 12/07/17 18:09 Medications Acetaminophen (Tylenol -Extra Strength) 500 mg PO Q4HP PRN PRN Reason: [id number] Stop: 12/31/17 11:04 Last Admin: 12/07/17 17:23 Dose: 500 mg Acetaminophen (Tylenol Suppository) 650 mg DE Q6HP PRN PRN Reason: [id number] Stop: 12/31/17 11:04 Albuterol Sulfate (Proventil 0.083% Neb Soln) 2.5 mg NEB [id number] PRN PRN Reason: SHORTNESS OF BREATH Stop: 12/31/17 14:01 Last Admin: 12/02/17 08:24 Dose: 2.5 mg Amitriptyline HCl (Elavil) 100 mg PO BEDTIME NELIA Stop: 01/01/18 21:01 Last Admin: 12/07/17 20:43 Dose: 100 mg Amlodipine Besylate (Norvasc) 10 mg PO DAILY NELIA Stop: 01/02/18 09:01 Last Admin: 12/07/17 10:50 Dose: 10 mg Arformoterol Tartrate (Brovana) 15 mcg NEB BIDRESP NELIA Stop: 12/31/17 20:01 Last Admin: 12/07/17 19:36 Dose: 15 mcg Aspirin (Aspirin Ec) 81 mg PO DAILY NELIA Stop: 01/01/18 09:01 Last Admin: 12/07/17 10:51 Dose: 81 mg Atorvastatin Calcium (Lipitor) 40 mg PO BEDTIME NELIA Stop: 12/31/17 21:01 Last Admin: 12/07/17 20:43 Dose: 40 mg Dextrose (Dextrose 50% Syringe) 12.5 gm IV PRN PRN PRN Reason: HYPOGLYCEMIA PROTOCOL Stop: 12/31/17 11:28 Last Admin: 12/01/17 21:41 Dose: 12.5 gm Divalproex Sodium (Depakote) 500 mg PO BID NELIA Stop: 01/06/18 21:01 Last Admin: 12/07/17 20:43 Dose: 500 mg Doxazosin Mesylate (Cardura) 4 mg PO BID REPLACED BY [facility] Stop: 01/01/18 10:01 Last Admin: 12/07/17 20:47 Dose: Not Given Enoxaparin Sodium (Lovenox 30 Mg Inj) 30 mg SQ DAILY REPLACED BY [facility] Stop: 12/31/17 12:01 Last Admin: 12/07/17 10:48 Dose: 30 mg Epoetin Chalo (Procrit) 10,000 unit IV EVERY HD NELIA Stop: 01/02/18 19:16 Last Admin: 12/06/17 11:37 Dose: 10,000 unit Gabapentin (Neurontin) 600 mg PO BID NELIA Stop: 01/01/18 10:01 Last Admin: 12/07/17 20:43 Dose: 600 mg Glucagon (Glucagen) 1 mg IM 1X PRN PRN Reason: HYPOGLYCEMIA Stop: 12/31/17 11:28 Heparin Sodium (Porcine) (Heparin 1,000 Units/Ml) 6,000 unit IJ EVERY HD PRN PRN Reason: FLUSH AFTER EACH USE Stop: 01/02/18 19:09 Last Admin: 12/04/17 08:44 Dose: 6,000 unit Hydralazine HCl (Apresoline) 10 mg IV Q6HP PRN PRN Reason: HIGH BP Stop: 12/31/17 11:04 Last Admin: 12/06/17 16:31 Dose: 10 mg Albumin Human (Albumin 25%) 50 mls @ 100 mls/hr IV EVERY HD NELIA Stop: 01/02/18 20:01 Insulin Human Regular (Novolin -R) 0 unit SQ ACHS NELIA PRN Reason: Protocol Stop: 12/31/17 11:31 Last Admin: 12/07/17 21:00 Dose: Not Given Ipratropium [place] (Atrovent Neb) 0.5 mg NEB [id number] PRN PRN Reason: SHORTNESS OF BREATH Stop: 12/31/17 12:01 Last Admin: 12/04/17 19:57 Dose: 0.5 mg L-Arginine/L-Glutamine/HMB (Irving) 1 pkt PO BID REPLACED BY [facility] Stop: 01/01/18 21:01 Last Admin: 12/07/17 20:45 Dose: 1 pkt Mannitol (Mannitol 12.5 Gm/50 Ml Vial) 12.5 gm IV EVERY HD PRN PRN Reason: BP support at hemodialysis Stop: 01/02/18 19:09 Last Admin: 12/06/17 11:38 Dose: 12.5 gm Metoprolol Tartrate (Lopressor) 50 mg PO BID REPLACED BY [facility] Stop: 01/01/18 10:01 Last Admin: 12/07/17 20:44 Dose: 50 mg Ondansetron HCl (Zofran) 4 mg IV Q6HP PRN PRN Reason: NAUSEA / VOMITING Stop: 12/31/17 11:04 Pantoprazole Sodium (Protonix Inj) 40 mg IVP DAILY NELIA Stop: 01/01/18 09:01 Last Admin: 12/07/17 10:51 Dose: 40 mg Phenytoin Sodium (Dilantin Er Cap) 200 mg PO BEDTIME NELIA Stop: 01/06/18 21:01 Last Admin: 12/07/17 20:42 Dose: 200 mg Ramipril (Altace) 5 mg PO DAILY AT SUPPER REPLACED BY [facility] Stop: 01/01/18 17:01 Last Admin: 12/07/17 17:18 Dose: 5 mg Sevelamer Carbonate (Renvela) 1,600 mg PO TIDWM NELIA Stop: 01/01/18 12:01 Last Admin: 12/07/17 17:19 Dose: 1,600 mg Sodium Chloride (Normal Saline Flush) 10 ml IV BID NELIA Stop: 12/31/17 21:01 Last Admin: 12/07/17 20:45 Dose: 10 ml Sodium Chloride (Sodium Chloride 10 Ml Inj) 10 ml IV UD PRN PRN Reason: Diluant Stop: 12/31/17 11:04 Temazepam (Restoril) 15 mg PO BEDTIME PRN PRN PRN Reason: INSOMNIA Stop: 01/03/18 21:10 Last Admin: 12/07/17 20:45 Dose: 15 mg Tramadol HCl (Ultram) 50 mg PO TIDP PRN PRN Reason: PAIN Stop: 01/01/18 09:16 Last Admin: 12/07/17 20:44 Dose: 50 mg Microbiology Results 12/01/17 09:50 Blood - Other Aerobic Blood Culture - Final 12/01/17 09:50 Blood - Other Gram Stain - Final 12/01/17 09:50 Blood - Other Anaerobic Blood Culture - Final No growth in 5 days. 12/01/17 09:30 Blood - Other Aerobic Blood Culture - Final No growth in 5 days. 12/01/17 09:30 Blood - Other Anaerobic Blood Culture - Final No growth in 5 days. Assessment/ Plan: Nephrology. Doing well but still with tremors/ clonus. CPS stable without CP or SOB. No acute events overnight. Vitals, medications, blood work and imaging reviewed in the chart. General: In no apparent distress, Oriented x3 HEENT: Atraumatic, Mucous membr. moist/pink Neck: Supple Respiratory: Clear to auscultation bilaterally, Normal air movement Cardiovascular: No edema, Regular rate/rhythm, No rubs Gastrointestinal: Soft and benign, Non-distended Musculoskeletal: No clubbing, No contractures Integumentary: No rashes, No cyanosis Neurological: Normal speech, Abnormal tone Blood work reviewed in the chart. Initial Hgb 11 Imagings Data: EXAM DESCRIPTION: Kelly Single View12/01/2017 9:44 am CLINICAL HISTORY: sob COMPARISON: January 2017 FINDINGS: The lungs appear clear of acute infiltrate. The heart is probably upper limits normal size IMPRESSION: No acute abnormalities displayed Conclusions/Impression: A/ ESRD on HD. HTN with CKD. DM II with CKD. Diastolic CHF, chronic. Anemia in CKD. LUIS/ Secondary HyperPTH. Hypokalemia. Seizure disorder. P/ Continue current POC and Medications. Follow up with Dr. Thomas for seizure. HD TIW. Encourage nutrition. PT as tolerated. AM labs. Daily weight.
--- NOTE | 2017-12-07 21:44 | P.PN ---
Date of Service: 12/07/17 Vital Signs Temp Pulse Resp BP Pulse Ox 97.5 F 74 20 157/79 H 97 12/07/17 18:09 12/07/17 20:44 12/07/17 18:09 12/07/17 20:44 12/07/17 18:09 Medications Acetaminophen (Tylenol -Extra Strength) 500 mg PO Q4HP PRN PRN Reason: [id number] Stop: 12/31/17 11:04 Last Admin: 12/07/17 17:23 Dose: 500 mg Acetaminophen (Tylenol Suppository) 650 mg NC Q6HP PRN PRN Reason: [id number] Stop: 12/31/17 11:04 Albuterol Sulfate (Proventil 0.083% Neb Soln) 2.5 mg NEB [id number] PRN PRN Reason: SHORTNESS OF BREATH Stop: 12/31/17 14:01 Last Admin: 12/02/17 08:24 Dose: 2.5 mg Amitriptyline HCl (Elavil) 100 mg PO BEDTIME NELIA Stop: 01/01/18 21:01 Last Admin: 12/07/17 20:43 Dose: 100 mg Amlodipine Besylate (Norvasc) 10 mg PO DAILY NELIA Stop: 01/02/18 09:01 Last Admin: 12/07/17 10:50 Dose: 10 mg Arformoterol Tartrate (Brovana) 15 mcg NEB BIDRESP NELIA Stop: 12/31/17 20:01 Last Admin: 12/07/17 19:36 Dose: 15 mcg Aspirin (Aspirin Ec) 81 mg PO DAILY NELIA Stop: 01/01/18 09:01 Last Admin: 12/07/17 10:51 Dose: 81 mg Atorvastatin Calcium (Lipitor) 40 mg PO BEDTIME NELIA Stop: 12/31/17 21:01 Last Admin: 12/07/17 20:43 Dose: 40 mg Dextrose (Dextrose 50% Syringe) 12.5 gm IV PRN PRN PRN Reason: HYPOGLYCEMIA PROTOCOL Stop: 12/31/17 11:28 Last Admin: 12/01/17 21:41 Dose: 12.5 gm Divalproex Sodium (Depakote) 500 mg PO BID NELIA Stop: 01/06/18 21:01 Last Admin: 12/07/17 20:43 Dose: 500 mg Doxazosin Mesylate (Cardura) 4 mg PO BID [facility] Stop: 01/01/18 10:01 Last Admin: 12/07/17 20:47 Dose: Not Given Enoxaparin Sodium (Lovenox 30 Mg Inj) 30 mg SQ DAILY [facility] Stop: 12/31/17 12:01 Last Admin: 12/07/17 10:48 Dose: 30 mg Epoetin Chalo (Procrit) 10,000 unit IV EVERY HD NELIA Stop: 01/02/18 19:16 Last Admin: 12/06/17 11:37 Dose: 10,000 unit Gabapentin (Neurontin) 600 mg PO BID NELIA Stop: 01/01/18 10:01 Last Admin: 12/07/17 20:43 Dose: 600 mg Glucagon (Glucagen) 1 mg IM 1X PRN PRN Reason: HYPOGLYCEMIA Stop: 12/31/17 11:28 Heparin Sodium (Porcine) (Heparin 1,000 Units/Ml) 6,000 unit IJ EVERY HD PRN PRN Reason: FLUSH AFTER EACH USE Stop: 01/02/18 19:09 Last Admin: 12/04/17 08:44 Dose: 6,000 unit Hydralazine HCl (Apresoline) 10 mg IV Q6HP PRN PRN Reason: HIGH BP Stop: 12/31/17 11:04 Last Admin: 12/06/17 16:31 Dose: 10 mg Albumin Human (Albumin 25%) 50 mls @ 100 mls/hr IV EVERY HD NELIA Stop: 01/02/18 20:01 Insulin Human Regular (Novolin -R) 0 unit SQ ACHS NELIA PRN Reason: Protocol Stop: 12/31/17 11:31 Last Admin: 12/07/17 21:00 Dose: Not Given Ipratropium [place] (Atrovent Neb) 0.5 mg NEB [id number] PRN PRN Reason: SHORTNESS OF BREATH Stop: 12/31/17 12:01 Last Admin: 12/04/17 19:57 Dose: 0.5 mg L-Arginine/L-Glutamine/HMB (Irving) 1 pkt PO BID [facility] Stop: 01/01/18 21:01 Last Admin: 12/07/17 20:45 Dose: 1 pkt Mannitol (Mannitol 12.5 Gm/50 Ml Vial) 12.5 gm IV EVERY HD PRN PRN Reason: BP support at hemodialysis Stop: 01/02/18 19:09 Last Admin: 12/06/17 11:38 Dose: 12.5 gm Metoprolol Tartrate (Lopressor) 50 mg PO BID [facility] Stop: 01/01/18 10:01 Last Admin: 12/07/17 20:44 Dose: 50 mg Ondansetron HCl (Zofran) 4 mg IV Q6HP PRN PRN Reason: NAUSEA / VOMITING Stop: 12/31/17 11:04 Pantoprazole Sodium (Protonix Inj) 40 mg IVP DAILY NELIA Stop: 01/01/18 09:01 Last Admin: 12/07/17 10:51 Dose: 40 mg Phenytoin Sodium (Dilantin Er Cap) 200 mg PO BEDTIME NELIA Stop: 01/06/18 21:01 Last Admin: 12/07/17 20:42 Dose: 200 mg Ramipril (Altace) 5 mg PO DAILY AT SUPPER [facility] Stop: 01/01/18 17:01 Last Admin: 12/07/17 17:18 Dose: 5 mg Sevelamer Carbonate (Renvela) 1,600 mg PO TIDWM NELIA Stop: 01/01/18 12:01 Last Admin: 12/07/17 17:19 Dose: 1,600 mg Sodium Chloride (Normal Saline Flush) 10 ml IV BID NELIA Stop: 12/31/17 21:01 Last Admin: 12/07/17 20:45 Dose: 10 ml Sodium Chloride (Sodium Chloride 10 Ml Inj) 10 ml IV UD PRN PRN Reason: Diluant Stop: 12/31/17 11:04 Temazepam (Restoril) 15 mg PO BEDTIME PRN PRN PRN Reason: INSOMNIA Stop: 01/03/18 21:10 Last Admin: 12/07/17 20:45 Dose: 15 mg Tramadol HCl (Ultram) 50 mg PO TIDP PRN PRN Reason: PAIN Stop: 01/01/18 09:16 Last Admin: 12/07/17 20:44 Dose: 50 mg Microbiology Results 12/01/17 09:50 Blood - Other Aerobic Blood Culture - Final 12/01/17 09:50 Blood - Other Gram Stain - Final 12/01/17 09:50 Blood - Other Anaerobic Blood Culture - Final No growth in 5 days. 12/01/17 09:30 Blood - Other Aerobic Blood Culture - Final No growth in 5 days. 12/01/17 09:30 Blood - Other Anaerobic Blood Culture - Final No growth in 5 days. Assessment/ Plan: Nephrology. Doing well but still with tremors/ clonus. CPS stable without CP or SOB. No acute events overnight. Vitals, medications, blood work and imaging reviewed in the chart. General: In no apparent distress, Oriented x3 HEENT: Atraumatic, Mucous membr. moist/pink Neck: Supple Respiratory: Clear to auscultation bilaterally, Normal air movement Cardiovascular: No edema, Regular rate/rhythm, No rubs Gastrointestinal: Soft and benign, Non-distended Musculoskeletal: No clubbing, No contractures Integumentary: No rashes, No cyanosis Neurological: Normal speech, Abnormal tone Blood work reviewed in the chart. Initial Hgb 11 Imagings Data: EXAM DESCRIPTION: Kelly Single View12/01/2017 9:44 am CLINICAL HISTORY: sob COMPARISON: January 2017 FINDINGS: The lungs appear clear of acute infiltrate. The heart is probably upper limits normal size IMPRESSION: No acute abnormalities displayed Conclusions/Impression: A/ ESRD on HD. HTN with CKD. DM II with CKD. Diastolic CHF, chronic. Anemia in CKD. LUIS/ Secondary HyperPTH. Hypokalemia. Seizure disorder. P/ Continue current POC and Medications. Follow up with Dr. Thomas for seizure. HD TIW. Encourage nutrition. PT as tolerated. AM labs. Daily weight.
[2017-12-08 06:18] LABS: BUN Blood Urea Nitrogen 58 mg/dL (6-20); Bicarbonate 27 mEq/L (21-31); Glomerular Filtration Rate 7 mL/min (=/>90); Glucose Level 149 mg/dL (65-120); Potassium 4.4 mEq/L (3.6-5.0); Sodium Level 136 mEq/L (135-145); Valproic Acid (Depakene) Level 27.9 ug/ml (50-100)
[2017-12-08 06:20] LABS: Phenytoin (Dilantin) Level < 2.5 ug/ml (10.0-20.0)
[2017-12-08] MEDS: INSULIN -REGULAR HUMAN 50 UNIT/0.5 ML ML SQ SCH ×4 (07:30→21:00)
[2017-12-08] MEDS: ARFORMOTEROL TARTRATE 15 MCG/2 ML VIAL.NEB NEB SCH ×2 (07:57→20:00)
[2017-12-08] MEDS: JUVEN PACKET PO SCH ×2 (08:58→22:10)
[2017-12-08] MEDS: GABAPENTIN 300 MG CAP PO SCH ×2 (08:59→22:02)
[2017-12-08] MEDS: ASPIRIN EC 81 MG TAB PO SCH (09:00)
[2017-12-08] MEDS: DOXAZOSIN 4 MG TAB PO SCH ×2 (09:00→21:00)
[2017-12-08] MEDS: DIVALPROEX DR 500MG TAB PO SCH ×3 (09:00→22:03)
[2017-12-08] MEDS: METOPROLOL TAR 50 MG TAB PO SCH ×2 (09:01→22:02)
[2017-12-08] MEDS: AMLODIPINE 10 MG TAB PO SCH (09:02)
[2017-12-08] MEDS: SEVELAMER CARBONATE 800 MG TABLET PO SCH ×3 (09:02→17:03)
[2017-12-08] MEDS: PANTOPRAZOLE 40 MG INJ IVP SCH (09:03)
[2017-12-08] MEDS: ENOXAPARIN 30 MG/0.3 ML SQ SCH (09:04)
[2017-12-08] MEDS: TRAMADOL HCL 50 MG TAB PO PRN (10:57)
--- NOTE | 2017-12-08 12:58 | P.PN ---
Subjective Date of Service: 12/08/17 Primary Care Provider: Dr. Vicente; Nephrology-Dr. Guaman; Cardiology-Dr. Gonzalez Chief Complaint: Altered mental status, seizures Subjective: Doing well patient alert/awake. looks comfortable. denies pain. answers questions appropriately. denies any cp or sob. vs stable lungs cta cvs rrr abd nt/nd/bs+ ext: stiches on foot...area looks clean. no edema a/p: esrd: labs/meds reviewed. neurologist following for hx of seizures. currently clinically stable. 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 Physical Examination - Vital Signs Temperature: 97.8 F Blood Pressure: 114/73 Pulse: 70 Respirations: 16 Pulse Ox (%): 99 - Studies Medications List Reviewed: Yes
[2017-12-08] MEDS ORDERED: ALPRAZOLAM 0.25 MG TABLET PO ONE (13:24)
[2017-12-08] MEDS ORDERED: TRAMADOL HCL 50 MG TAB PO SCH (14:00)
--- NOTE | 2017-12-08 16:22 | PN ---
Date of Progress Note: 12/08/2017 Subjective: . She looks comfortable. She continued to jerk mostly in her lower extremity . She is worried about that. No chest pain or abdominal pain. No fever or chills. Good appetite. Objective: Vital Signs: Blood pressure 140/73, respiratory rate 16, pulse 70, temperature 97.8. General: The patient currently lying in bed, alert oriented x3. Does not look in any distress. HEENT: Atraumatic, normocephalic. PERRLA, oral mucosa moist. Neck: Supple. No JVD. No carotid bruits. Chest: Clear to auscultation. Good air entry. Heart: Regular rate and rhythm S1, S2 normal. No gallop or murmur. Abdomen: Soft, nontender. No masses. No hepatosplenomegaly. Positive bowel sounds. Extremities: No clubbing, cyanosis, or edema. No calf tenderness. She has amputation of the big to e. Neurologic: Exam deferred. Laboratory Data: Today, CBC showed within normal except for hemoglobin 9.6, CMP within normal except for BUN of 58, creatinine 6.79, glucose 149. Sodium 136, calcium of 10. Assessment And Plan: 1.Seizure disorder. Currently, she is on Dilantin and Keppra. Dilantin level still subtherapeutic at less than 2.5. Difficulty following. She received IV infusion yesterday. She is currently on Di lantin ER 200 mg at bedtime and she is on valproic acid at 500 mg which was infused IV yesterday. __ acid level still low at 27.9, and Dilantin still less than 2.5. 2.End-stage renal disease, she is on hemodialysis. 3.Anemia probably secondary to end-stage renal disease. She is on . 4.History of chronic obstructive pulmonary disease, chronic, stable. 5.History of Burkitt lymphoma. According to the records apparently in remission. 6.Encephalopathy, resolved. 7.Peripheral vascular disease with recent left toe amputation. Continue wound care. 8.History of cerebrovascular accident. She followed by Neurology. 9.Gastroparesis disease history. 10.Hypertension, good controlled. 11.Hyperlipidemia, on statin. 12.DVT prophylaxis, on Lovenox 30 mg once a day. 13.Neuropathy, on Neurontin. MT/MODL Voice ID: [id number] Report ID: [id number]
[2017-12-08] MEDS: RAMIPRIL 5 MG CAP PO SCH (17:02)
--- NOTE | 2017-12-08 17:31 | PN ---
Date of Progress Note: 12/08/2017 Reason: Seizures, myoclonus. Interval History: The patient is having what she states is worsening jerking and myoclonus. It is n ot happening spontaneously. Seems to be just involving the lower extremities with the prominent flex or responses in the lower extremities. None in the upper extremities. No cranial nerve abnormalitie s. Mentation is not impaired during the episode. Depakote level is however subtherapeutic at 27. W e will stop the tramadol as that can induce myoclonus, stop the Dilantin, increase the Depakote. Carla ck an EEG on Sunday if she is still here. If she continues to have episodes despite therapeutic Depa kote level, may need to add a low dose benzodiazepine like clonazepam. The episode proper have somew hat nonorganic flavor and appear to be different than the smaller amplitude myoclonic jerks that she was having previously. Physical Examination: Vital Signs: On exam, she is afebrile. General: Stable. She is awake, alert, oriented. HEENT: Pupils reactive. Ocular motion full. Griffin full. Face symmetric. Tongue midline. Soft p alate elevates bilaterally. EXTREMITIES: Extremity strength full. No myoclonic jerks in the arms. Aforementioned bilateral hip flexion with leg extension reflexes absent. Left toe surgically absent, right toe downgoing. Impression: Seizures, myoclonus. Plan: She medication adjustments as noted. Stop tramadol as that can cause myoclonus and check an E EG on Sunday to evaluate in more detail, but episodes on a prior EEG were not felt to be epileptiform in nature. We will continue to follow. AVERY Voice ID: [id number] Report ID: [id number]
[2017-12-08] MEDS ORDERED: ARFORMOTEROL TARTRATE 15 MCG/2 ML VIAL.NEB ONE (19:54)
[2017-12-08] MEDS: AMITRIPTYLINE 50 MG TAB PO SCH (22:03)
[2017-12-08] MEDS ORDERED: DOXAZOSIN 2 MG TAB ONE (22:07)
[2017-12-08] MEDS: ATORVASTATIN 40 MG TAB PO SCH (22:10)
[2017-12-08] MEDS: ACETAMINOPHEN 500 MG TAB PO PRN (22:13)
[2017-12-09] MEDS: INSULIN -REGULAR HUMAN 50 UNIT/0.5 ML ML SQ SCH ×4 (07:30→22:12)
[2017-12-09] MEDS: ARFORMOTEROL TARTRATE 15 MCG/2 ML VIAL.NEB NEB SCH ×2 (08:33→20:00)
[2017-12-09] MEDS: METOPROLOL TAR 50 MG TAB PO SCH ×2 (09:12→22:08)
[2017-12-09] MEDS: ASPIRIN EC 81 MG TAB PO SCH (09:14)
[2017-12-09] MEDS: DIVALPROEX DR 500MG TAB PO SCH ×3 (09:14→22:08)
[2017-12-09] MEDS: AMLODIPINE 10 MG TAB PO SCH (09:15)
[2017-12-09] MEDS: DOXAZOSIN 4 MG TAB PO SCH ×2 (09:16→21:00)
[2017-12-09] MEDS: GABAPENTIN 300 MG CAP PO SCH ×2 (09:16→22:09)
[2017-12-09] MEDS: SEVELAMER CARBONATE 800 MG TABLET PO SCH ×3 (09:18→16:52)
[2017-12-09] MEDS: PANTOPRAZOLE 40 MG INJ IVP SCH (09:18)
[2017-12-09] MEDS: ENOXAPARIN 30 MG/0.3 ML SQ SCH (09:23)
[2017-12-09] MEDS: JUVEN PACKET PO SCH ×2 (09:26→21:00)
[2017-12-09] MEDS: RAMIPRIL 5 MG CAP PO SCH (16:53)
--- NOTE | 2017-12-09 17:50 | PN ---
Subjective: The patient currently lying in bed. She looks comfortable. She have not more jerking, she had some in the morning, but not as much as yesterday. She is still followed closely by the neur ologist. No fever, no chills overnight. Appetite average. No abdominal pain. Objective: Vital Signs: Currently, blood pressure is 112/74, respiratory rate 20, pulse 71, tempera ture 98.3, saturating 95%. General: She is fully alert, oriented x3. Does not look in any distress. HEENT: Atraumatic, normocephalic. PERRLA. Oral mucosa is moist. Neck: Supple. No JVD. No carotid bruits. Chest: Clear to auscultation. Good air entry. Heart: Regular rate and rhythm. S1, S2 normal. No gallop or murmur. Abdomen: Soft, nontender. No masses. No hepatosplenomegaly. Positive bowel sounds. Extremities: No clubbing, cyanosis, or edema. No calf tenderness. There is an amputation of her bi g toe. Neurologic: I deferred neurologic exam today as the patient is seen by neurologist. Laboratory Data: Today, showed valproic acid level is still low at 39, but improving. The CBC or CM P will order for tomorrow morning. Glucose around 178. Assessment And Plan: 1.Seizure disorder. The patient was on Dilantin and Keppra by Dr. Thomas. Discontinued Dilantin yes terday, so we will stop Dilantin level. Continue Keppra, she is currently on 500 mg 3 times a day. Level is improving, but still subtherapeutic. There is a plan for EGD tomorrow. 2.End-stage renal disease. She is on hemodialysis. She is due for dialysis on Sunday. 3.Anemia secondary to end-stage renal disease. She is on Procrit. 4.History of chronic obstructive pulmonary disease, chronic. 5.Peripheral vascular disease with recent left toe amputation. Continue wound care. 6.History of cerebrovascular accident, followed by Neurology. 7.Diet, gastroparesis history. Observe, no nausea or vomiting. 8.Hypertension, well controlled. 9.Hyperlipidemia. 10.DVT prophylaxis. Continue Lovenox 30 once a day given renal insufficiency. MT/MODL Voice ID: [id number] Report ID: [id number]
[2017-12-09] MEDS ORDERED: DOXAZOSIN 2 MG TAB ONE (20:50)
[2017-12-09] MEDS: AMITRIPTYLINE 50 MG TAB PO SCH (22:06)
[2017-12-09] MEDS: ATORVASTATIN 40 MG TAB PO SCH (22:11)
[2017-12-10 04:23] LABS: Absolute Lymphocytes (CBC) 1.9 K/uL (0.7-4.9); Absolute Monocytes 0.7 K/uL (0.1-1.3); Absolute Neutrophil 3.2 K/uL (1.8-8.0); Basophils % 0.6 % (0-1.3); Eosinophils % 8.3 % (0-4.4); Hematocrit 29.4 % (36.0-45.0); Lymphocytes % 29.9 % (15.3-44.8); MCH 31.2 pg (27.0-35.0); MCV 97.4 fL (80-100); MPV 10.1 fL (7.6-11.3); Monocytes % 11.6 % (3.3-12.3); RBC Red Blood Cell Count 3.02 M/uL (3.86-4.86)
[2017-12-10 04:43] LABS: Albumin 3.1 g/dL (3.2-5.5); Bilirubin Total 0.7 mg/dL (0.3-1.2); Potassium 4.6 mEq/L (3.6-5.0); Protein, Total 7.2 g/dL (6.0-8.3); Valproic Acid (Depakene) Level 37.2 ug/ml (50-100)
[2017-12-10] MEDS: INSULIN -REGULAR HUMAN 50 UNIT/0.5 ML ML SQ SCH ×4 (07:30→20:57)
[2017-12-10] MEDS: SEVELAMER CARBONATE 800 MG TABLET PO SCH ×3 (10:33→17:23)
[2017-12-10] MEDS: ENOXAPARIN 30 MG/0.3 ML SQ SCH (10:33)
[2017-12-10] MEDS: PANTOPRAZOLE 40 MG INJ IVP SCH (10:33)
[2017-12-10] MEDS: DIVALPROEX DR 500MG TAB PO SCH ×3 (10:34→20:54)
[2017-12-10] MEDS: METOPROLOL TAR 50 MG TAB PO SCH ×2 (10:35→20:54)
[2017-12-10] MEDS: AMLODIPINE 10 MG TAB PO SCH (10:35)
[2017-12-10] MEDS: DOXAZOSIN 4 MG TAB PO SCH ×2 (10:36→20:55)
[2017-12-10] MEDS: GABAPENTIN 300 MG CAP PO SCH ×2 (10:36→20:53)
[2017-12-10] MEDS: JUVEN PACKET PO SCH ×2 (10:36→20:56)
[2017-12-10] MEDS: ASPIRIN EC 81 MG TAB PO SCH (10:36)
[2017-12-10] MEDS: ARFORMOTEROL TARTRATE 15 MCG/2 ML VIAL.NEB NEB SCH ×2 (12:06→22:10)
--- NOTE | 2017-12-10 13:55 | P.PN ---
Subjective Date of Service: 12/10/17 Primary Care Provider: Dr. Vicente; Nephrology-Dr. Guaman; Cardiology-Dr. Gonzalez Chief Complaint: Altered mental status, seizures Subjective: Other (Patient stable this time.) Physical Examination - Vital Signs Temperature: 97.3 F Blood Pressure: 140/76 Pulse: 64 Respirations: 16 Pulse Ox (%): 92 - Physical Exam General: Other (Patient resting in bed.) HEENT: Atraumatic Neck: Supple Respiratory: Clear to auscultation bilaterally, Normal air movement Cardiovascular: Normal pulses, Regular rate/rhythm Gastrointestinal: No masses, No rebound, No guarding Neurological: Other (Increased somnolence noted) - Studies Medications List Reviewed: Yes Assessment & Plan - Problems (Diagnosis) (1) Encephalopathy Onset Date: 12/03/17 Current Visit: Yes Status: Acute Plan: Neurology has made adjustments to medication. Patient with increased somnolence today. EEG to be done today. Will discuss further with Neurology. Case also discussed with nephrology. Possible discharge to [facility] when more stable. (2) Seizures Onset Date: 12/03/17 Current Visit: Yes Status: Acute Plan: Medications have been adjusted. Will continue monitor closely. EEG to be done today (3) Hypokalemia Onset Date: 12/03/17 Current Visit: Yes Status: Acute Plan: This has improved. Nephrology to further monitor and address (4) PAD (peripheral artery disease) Onset Date: 12/03/17 Current Visit: Yes Status: Chronic Plan: Patient with recent left toe amputation. Will continue with wound care. Patient still with sutures in place. Will need to verify when this was last done as the sutures may need to be removed. (5) History of CVA (cerebrovascular accident) Onset Date: 12/03/17 Current Visit: Yes Status: Chronic Plan: Patient with history of recent CVA. Will continue with blood pressure control. Patient on anti seizure medication. Will need to obtain records from [facility]. (6) Diabetes mellitus Onset Date: 07/26/15 Current Visit: No Status: Chronic Plan: Will continue with sliding scale. Qualifiers: Diabetes mellitus type: type 2 Diabetes mellitus global climate change researcher insulin use: without global climate change researcher use Diabetes mellitus complication status: with other specified complication Qualified Code(s): E11.69 - Type 2 diabetes mellitus with other specified complication (7) ESRD (end stage renal disease) on dialysis Onset Date: 04/03/16 Current Visit: No Status: Chronic Plan: Will continue with dialysis on Tuesdays, and Saturdays. (8) Gastroparesis Onset Date: 12/03/17 Current Visit: Yes Status: Chronic Plan: Patient with history of gastroparesis. Will monitor closely. (9) Hypertension Onset Date: 07/26/15 Current Visit: No Status: Chronic Plan: Will monitor and adjust appropriately Qualifiers: Hypertension type: essential hypertension Qualified Code(s): I10 - Essential (primary) hypertension (10) COPD (chronic obstructive pulmonary disease) Current Visit: Yes Status: Suspected Plan: Patient with history of tobacco abuse. Will continue with COPD medication. Qualifiers: COPD type: chronic bronchitis Chronic bronchitis type: unspecified Qualified Code(s): J42 - Unspecified chronic bronchitis (11) Anemia Onset Date: 07/26/15 Current Visit: No Status: Chronic Plan: Likely of chronic disease. Will monitor closely. Qualifiers: Anemia type: due to chronic kidney disease Chronic kidney disease stage: on chronic dialysis Qualified Code(s): N18.6 - End stage renal disease; D63.1 - Anemia in chronic kidney disease; D63.1 - Anemia in chronic kidney disease; Z99.2 - Dependence on renal dialysis; Z99.2 - Dependence on renal dialysis; Z99.2 - Dependence on renal dialysis; Z99.2 - Dependence on renal dialysis (12) GERD (gastroesophageal reflux disease) Onset Date: 12/03/17 Current Visit: Yes Status: Chronic Plan: Will continue the medication. Qualifiers: Esophagitis presence: esophagitis presence not specified Qualified Code(s) : K21.9 - Gastro-esophageal reflux disease without esophagitis Discharge Plan: Retirement Plan to discharge in: 24 Hours Time Spent Managing Pts Care (In Minutes): 55
--- NOTE | 2017-12-10 16:35 | P.PN ---
Date of Service: 12/10/17 Vital Signs Temp Pulse Resp BP Pulse Ox 97.3 F 64 16 140/76 92 12/10/17 13:55 12/10/17 13:55 12/10/17 13:55 12/10/17 13:55 12/10/17 13:55 Medications Acetaminophen (Tylenol -Extra Strength) 500 mg PO Q4HP PRN PRN Reason: [id number] Stop: 12/31/17 11:04 Last Admin: 12/08/17 22:13 Dose: 500 mg Acetaminophen (Tylenol Suppository) 650 mg GA Q6HP PRN PRN Reason: [id number] Stop: 12/31/17 11:04 Albuterol Sulfate (Proventil 0.083% Neb Soln) 2.5 mg NEB [id number] PRN PRN Reason: SHORTNESS OF BREATH Stop: 12/31/17 14:01 Last Admin: 12/02/17 08:24 Dose: 2.5 mg Amitriptyline HCl (Elavil) 100 mg PO BEDTIME NELIA Stop: 01/01/18 21:01 Last Admin: 12/09/17 22:06 Dose: 100 mg Amlodipine Besylate (Norvasc) 10 mg PO DAILY NELIA Stop: 01/02/18 09:01 Last Admin: 12/10/17 10:35 Dose: 10 mg Arformoterol Tartrate (Brovana) 15 mcg NEB BIDRESP NELIA Stop: 12/31/17 20:01 Last Admin: 12/10/17 12:06 Dose: 15 mcg Aspirin (Aspirin Ec) 81 mg PO DAILY NELIA Stop: 01/01/18 09:01 Last Admin: 12/10/17 10:36 Dose: 81 mg Atorvastatin Calcium (Lipitor) 40 mg PO BEDTIME NELIA Stop: 12/31/17 21:01 Last Admin: 12/09/17 22:11 Dose: 40 mg Dextrose (Dextrose 50% Syringe) 12.5 gm IV PRN PRN PRN Reason: HYPOGLYCEMIA PROTOCOL Stop: 12/31/17 11:28 Last Admin: 12/01/17 21:41 Dose: 12.5 gm Divalproex Sodium (Depakote) 500 mg PO TID NELIA Stop: 01/07/18 21:01 Last Admin: 12/10/17 15:06 Dose: 500 mg Doxazosin Mesylate (Cardura) 4 mg PO BID [facility] Stop: 01/01/18 10:01 Last Admin: 12/10/17 10:36 Dose: 4 mg Enoxaparin Sodium (Lovenox 30 Mg Inj) 30 mg SQ DAILY [facility] Stop: 12/31/17 12:01 Last Admin: 12/10/17 10:33 Dose: 30 mg Epoetin [place] (Procrit) 10,000 unit IV EVERY HD NEILA Stop: 01/02/18 19:16 Last Admin: 12/06/17 11:37 Dose: 10,000 unit Gabapentin (Neurontin) 600 mg PO BID NELIA Stop: 01/01/18 10:01 Last Admin: 12/10/17 10:36 Dose: 600 mg Glucagon (Glucagen) 1 mg IM 1X PRN PRN Reason: HYPOGLYCEMIA Stop: 12/31/17 11:28 Heparin Sodium (Porcine) (Heparin 1,000 Units/Ml) 6,000 unit IJ EVERY HD PRN PRN Reason: FLUSH AFTER EACH USE Stop: 01/02/18 19:09 Last Admin: 12/04/17 08:44 Dose: 6,000 unit Hydralazine HCl (Apresoline) 10 mg IV Q6HP PRN PRN Reason: HIGH BP Stop: 12/31/17 11:04 Last Admin: 12/06/17 16:31 Dose: 10 mg Albumin Human (Albumin 25%) 50 mls @ 100 mls/hr IV EVERY HD NELIA Stop: 01/02/18 20:01 Insulin Human Regular (Novolin -R) 0 unit SQ ACHS NELIA PRN Reason: Protocol Stop: 12/31/17 11:31 Last Admin: 12/10/17 11:30 Dose: Not Given Ipratropium [place] (Atrovent Neb) 0.5 mg NEB [id number] PRN PRN Reason: SHORTNESS OF BREATH Stop: 12/31/17 12:01 Last Admin: 12/04/17 19:57 Dose: 0.5 mg L-Arginine/L-Glutamine/HMB (Irving) 1 pkt PO BID [facility] Stop: 01/01/18 21:01 Last Admin: 12/10/17 10:36 Dose: 1 pkt Mannitol (Mannitol 12.5 Gm/50 Ml Vial) 12.5 gm IV EVERY HD PRN PRN Reason: BP support at hemodialysis Stop: 01/02/18 19:09 Last Admin: 12/06/17 11:38 Dose: 12.5 gm Metoprolol Tartrate (Lopressor) 50 mg PO BID [facility] Stop: 01/01/18 10:01 Last Admin: 12/10/17 10:35 Dose: 50 mg Ondansetron HCl (Zofran) 4 mg IV Q6HP PRN PRN Reason: NAUSEA / VOMITING Stop: 12/31/17 11:04 Pantoprazole Sodium (Protonix Inj) 40 mg IVP DAILY NELIA Stop: 01/01/18 09:01 Last Admin: 12/10/17 10:33 Dose: 40 mg Ramipril (Altace) 5 mg PO DAILY AT SUPPER [facility] Stop: 01/01/18 17:01 Last Admin: 12/09/17 16:53 Dose: 5 mg Sevelamer Carbonate (Renvela) 1,600 mg PO TIDWM [facility] Stop: 01/01/18 12:01 Last Admin: 12/10/17 12:39 Dose: 1,600 mg Sodium Chloride (Normal Saline Flush) 10 ml IV BID NELIA Stop: 12/31/17 21:01 Last Admin: 12/10/17 10:37 Dose: 10 ml Sodium Chloride (Sodium Chloride 10 Ml Inj) 10 ml IV UD PRN PRN Reason: Diluant Stop: 12/31/17 11:04 Temazepam (Restoril) 15 mg PO BEDTIME PRN PRN PRN Reason: INSOMNIA Stop: 01/03/18 21:10 Last Admin: 12/07/17 20:45 Dose: 15 mg Microbiology Results 12/01/17 09:50 Blood - Other Aerobic Blood Culture - Final 12/01/17 09:50 Blood - Other Gram Stain - Final 12/01/17 09:50 Blood - Other Anaerobic Blood Culture - Final No growth in 5 days. 12/01/17 09:30 Blood - Other Aerobic Blood Culture - Final No growth in 5 days. 12/01/17 09:30 Blood - Other Anaerobic Blood Culture - Final No growth in 5 days. Assessment/ Plan: Nephrology. Doing well but still with tremors, which make it difficult for her to perform activities. CPS stable without CP or SOB. No acute events overnight. Vitals, medications, blood work and imaging reviewed in the chart. General: In no apparent distress, Oriented x3 HEENT: Atraumatic, Mucous membr. moist/pink Neck: Supple Respiratory: Clear to auscultation bilaterally, Normal air movement Cardiovascular: No edema, Regular rate/rhythm, No rubs Gastrointestinal: Soft and benign, Non-distended Musculoskeletal: No clubbing, No contractures Integumentary: No rashes, No cyanosis Neurological: Normal speech, Abnormal tone Blood work reviewed in the chart. Initial Hgb 11 Imagings Data: EXAM DESCRIPTION: Kelly Single View12/01/2017 9:44 am CLINICAL HISTORY: sob COMPARISON: January 2017 FINDINGS: The lungs appear clear of acute infiltrate. The heart is probably upper limits normal size IMPRESSION: No acute abnormalities displayed Conclusions/Impression: A/ ESRD on HD TTS. HTN with CKD. DM II with CKD. Diastolic CHF, chronic. Anemia in CKD. LUIS/ Secondary HyperPTH. Hypokalemia. Seizure disorder. Intention tremor. P/ Continue current POC and Medications. Follow up with Dr. Thomas for seizure/ tremor. HD TIW. Encourage nutrition. PT as tolerated. AM labs. Daily weight.
[2017-12-10] MEDS: RAMIPRIL 5 MG CAP PO SCH (17:23)
--- NOTE | 2017-12-10 17:59 | EEG ---
CHART: [id number] TEST ID#: [id number] DATE OF STUDY: 12/10/2017 THE EEG WAS RECORDED PORTABLE IN THE PATIENT'S ROOM ON A 17 CHANNEL MACHINE. ELECTRODES WERE APPLIED IN THE USUAL MANNER USING THE INTERNATIONAL 10-20 SYSTEM. THE WAKING BACKGROUND RHYTHM IN THIS RECORD CONSISTS OF FAIRLY WELL DEVELOPED AND FAIRLY WELL ORGANIZED WAVES OF UP TO 10 HZ., MAXIMAL IN THE POSTERIOR HEAD REGIONS WHICH ATTENUATE NORMALLY WITH EYE OPENING. IN DROWSINESS THE BACKGROUND DROPS TO 9 HZ. THERE ARE NO FOCAL OR LATERALIZING FEATURES. NO EPILEPTIFORM ACTIVITY APPEARS. SLEEP DID NOT OCCUR. HYPERVENTILATION WAS NOT PERFORMED. PHOTIC STIMULATION PRODUCED FAIR DRIVING BILATERALLY. IMPRESSION: NORMAL EEG FOR THE AGE OF THE PATIENT IN WAKE AND DROWSINESS.
[2017-12-10] MEDS: AMITRIPTYLINE 50 MG TAB PO SCH (20:54)
[2017-12-10] MEDS: ACETAMINOPHEN 500 MG TAB PO PRN (20:55)
[2017-12-10] MEDS: ATORVASTATIN 40 MG TAB PO SCH (20:55)
--- NOTE | 2017-12-10 21:33 | PN ---
Reason: Seizures, myoclonus. Interval History: The patient is stable, was felt to be drowsy earlier, but she seems fine now. She states she is having myoclonus still, but she was not having any when I examined her on the 2nd at 1 6:40. Repeat EEG is normal. Depakote level is still slightly subtherapeutic. We will adjust that. I think if it is therapeutic by tomorrow, she can safely be discharged to the halfway[facility] ed we do not see evidence of any type of permanent or irreversible damage to the nervous system, and I think working with therapy and staying on the Depakote will result in reasonably good outcome. The episodes are not really myoclonic at this juncture and when reviewed with nursing staff she has inte rmittent atony in her left upper leg, right arm, and she suddenly loses tone, raising possibility of a conversion-type reaction. Physical Examination: Vital Signs: On exam, she is afebrile. Vitals are stable. General: She is awake, alert, oriented. Neurologic: Pupils reactive poorly. Ocular motion full. Griffin full. No myoclonus. Strength full . Sensation decreased distally. Reflexes trace. Impression: Seizures, myoclonus. Plan: Increase the Depakote to a 1000 twice daily and give 1 extra dose intravenously of Depacon. C heck the level in the morning. Therapy evaluation. I think she can safely be discharged to a [facility] while the level is therapeutic, and even if it is not, it could be adjusted further at the [facility]. LOLIS/ASCENCION Voice ID: [id number] Report ID: [id number]
[2017-12-10] MEDS ORDERED: ARFORMOTEROL TARTRATE 15 MCG/2 ML VIAL.NEB ONE (22:11)
[2017-12-11] MEDS ORDERED: VALPROATE SODIUM INJ 1,000 MG in NA CHLORIDE 0.9% 100 ML IV ONE (02:00)
[2017-12-11 06:32] VITALS: BMI 25.1
[2017-12-11] MEDS: INSULIN -REGULAR HUMAN 50 UNIT/0.5 ML ML SQ SCH ×4 (07:30→17:46)
[2017-12-11] MEDS: ARFORMOTEROL TARTRATE 15 MCG/2 ML VIAL.NEB NEB SCH (09:15)
[2017-12-11] MEDS: DOXAZOSIN 4 MG TAB PO SCH (10:26)
[2017-12-11] MEDS: SEVELAMER CARBONATE 800 MG TABLET PO SCH ×3 (10:26→17:00)
[2017-12-11] MEDS: ASPIRIN EC 81 MG TAB PO SCH (10:27)
[2017-12-11] MEDS: AMLODIPINE 10 MG TAB PO SCH (10:27)
[2017-12-11] MEDS: METOPROLOL TAR 50 MG TAB PO SCH (10:27)
[2017-12-11] MEDS: DIVALPROEX DR 500MG TAB PO SCH (10:27)
[2017-12-11] MEDS: GABAPENTIN 300 MG CAP PO SCH (10:27)
[2017-12-11] MEDS: PANTOPRAZOLE 40 MG INJ IVP SCH (10:28)
[2017-12-11] MEDS: JUVEN PACKET PO SCH (10:28)
[2017-12-11] MEDS: ENOXAPARIN 30 MG/0.3 ML SQ SCH (10:28)
[2017-12-11] MEDS ORDERED: IPRATROPIUM BROM 0.5MG/2.5ML NEB PRN (11:28)
[2017-12-11] MEDS ORDERED: ALBUTEROL 2.5 MG/3 ML NEB SOL NEB PRN (11:29)
[2017-12-11 12:13] VITALS: BP 160/72; TEMP 98
[2017-12-11 13:56] VITALS: O2SAT 97
[2017-12-11] MEDS: EPOETIN ALFA 10,000 UNIT/ML VIAL IV SCH (14:29)
--- NOTE | 2017-12-11 16:25 | P.DS ---
Admission Date: 12/01/17 Discharge Date: 12/11/17 Primary Care Provider: Dr. Vicente; Nephrology-Dr. Guaman; Cardiology-Dr. Gonzalez Disposition: TRANSFER TO SNF Discharge Condition: GOOD Reason for Admission: Altered mental status, seizures Consultations: Neurology-Dr. Thomas Nephrology-Dr. Guaman Procedures: EEG: Unremarkable MRI: Unremarkable. No acute finding noted - Problems (1) Encephalopathy Onset Date: 12/03/17 Current Visit: Yes Status: Acute (2) Seizures Onset Date: 12/03/17 Current Visit: Yes Status: Acute (3) Hypokalemia Onset Date: 12/03/17 Current Visit: Yes Status: Acute (4) PAD (peripheral artery disease) Onset Date: 12/03/17 Current Visit: Yes Status: Chronic (5) History of CVA (cerebrovascular accident) Onset Date: 12/03/17 Current Visit: Yes Status: Chronic (6) Diabetes mellitus Onset Date: 07/26/15 Current Visit: No Status: Chronic Qualifiers: Diabetes mellitus type: type 2 Diabetes mellitus emt intermediate insulin use: without emt intermediate use Diabetes mellitus complication status: with other specified complication Qualified Code(s): E11.69 - Type 2 diabetes mellitus with other specified complication (7) ESRD (end stage renal disease) on dialysis Onset Date: 04/03/16 Current Visit: No Status: Chronic (8) Gastroparesis Onset Date: 12/03/17 Current Visit: Yes Status: Chronic (9) Hypertension Onset Date: 07/26/15 Current Visit: No Status: Chronic Qualifiers: Hypertension type: essential hypertension Qualified Code(s): I10 - Essential (primary) hypertension (10) COPD (chronic obstructive pulmonary disease) Current Visit: Yes Status: Suspected Qualifiers: COPD type: chronic bronchitis Chronic bronchitis type: unspecified Qualified Code(s): J42 - Unspecified chronic bronchitis (11) Anemia Onset Date: 07/26/15 Current Visit: No Status: Chronic Qualifiers: Anemia type: due to chronic kidney disease Chronic kidney disease stage: on chronic dialysis Qualified Code(s): N18.6 - End stage renal disease; D63.1 - Anemia in chronic kidney disease; D63.1 - Anemia in chronic kidney disease; Z99.2 - Dependence on renal dialysis; Z99.2 - Dependence on renal dialysis; Z99.2 - Dependence on renal dialysis; Z99.2 - Dependence on renal dialysis (12) GERD (gastroesophageal reflux disease) Onset Date: 12/03/17 Current Visit: Yes Status: Chronic Qualifiers: Esophagitis presence: esophagitis presence not specified Qualified Code(s) : K21.9 - Gastro-esophageal reflux disease without esophagitis Brief History of Present Illness: 37-year-old female presented to the emergency room with altered mental status and seizures. Patient with multiple medical problems including end-stage renal disease, obstructive sleep apnea, diabetes, hypertension, hyperlipidemia, history CVA, PAD. Most of the information came from the mother and aunt who was present at bedside. The mother reports that on November 08 the patient had an outpatient procedure to have a left great toe amputated due to gangrene. This was done at [facility]. The patient stayed overnight. She apparently got dialysis at that time. She apparently coded for about 4 min. She was sent to ICU and was placed on the ventilator. During that time the patient had suffered a stroke in 3 areas of the brain. She also had gotten an EEG. The mother thought that the patient had seizures. She is unsure whether the patient got anti she is in medication. The patient was rehabilitated. She stayed at the hospital for about 2 weeks. She was told that there was little that can be done for the patient. She was sent to [facility] last week. During this past week she has had poor appetite. Some nausea and vomiting has no been noted. She has poor memory. She is not able to walk. Today she went to dialysis. She apparently had some mild tremors during her treatment. 1.9 L was taken off. The tremors increased. She came to the emergency room for further evaluation. In the ER she was evaluated. She appeared to have seizures. She was given Ativan and fosphenytoin. The patient remained stable at this time. Patient is somnolent. In the ER lab shows a potassium of 2.7, BUN of 22, creatinine 3.99 with a GFR of 13. BNP elevated at 967. Troponin 0.03. Total bilirubin 1.9, AST 53, alk- phos slightly elevated. Urinalysis was unremarkable. test negative. Chest x-ray negative. CT of the head showed no acute abnormality. White count 13.6, hemoglobin 11. Patient has been stabilize. I was asked to admit the patient. Neurology and Nephrology have been consulted. When I saw the patient in the ER, she appeared somnolent. She was difficult to arouse but stable. Vital signs stable at this time. She does not appear in any acute respiratory distress. Mother and aunt are at bedside. Hospital Course: Patient presented with encephalopathy likely related to underlying seizures. Patient with history of CVA. Patient evaluated by neurology. Patient was started on medication. Medication was adjusted during the course of her stay. MRI showed no acute abnormality. At discharge, the patientwill continue with Depakote 1000 mg 1 pill twice daily. Recommendation is to recheck Depakote level in 1-2 weeks to monitor her progress. Patient will need a follow up with neurology in 1-2 weeks to follow up this hospitalization and continue her care. Patient has hypertension. Patient will continue with her medication including Norvasc 10 mg 1 pill daily, Cardura 4 mg 1 pill twice daily, metoprolol 50 mg 1 pill twice daily, and ramipril 5 mg daily. Recommendation is to maintain blood pressures less 150/80. Further adjustment can be done by her PCP Patient has end-stage renal disease on dialysis. She will continue with dialysis every Sunday, and Saturdays. She will continue with her dialysis medications Patient has hyperlipidemia. She will continue with Lipitor daily. Patient has neuropathy. She will continue with Neurontin 600 mg 1 pill twice daily. Patient has GERD. She will continue with Nexium daily. Patient has COPD. She will continue with Symbicort 2 puffs twice daily and albuterol as needed. Patient had recent amputation to the left great toe. She is to continue with current wound care. She is to follow up with surgery for removal of stitches [facility]. Family will work to transfer her possibly to a facility closer to home after rehab. Vital Signs/Physical Exam: Temp Pulse Resp BP Pulse Ox 98.0 F 66 16 160/72 H 89 L 12/11/17 12:12/11/17 12:00 12/11/17 12:00 12/11/17 12:12/11/17 12:00 General: Alert, In no apparent distress, Oriented x3, Cooperative HEENT: Atraumatic Neck: Supple Respiratory: Clear to auscultation bilaterally, Normal air movement Cardiovascular: Normal pulses, Regular rate/rhythm Gastrointestinal: Normal bowel sounds, Soft and benign, Non-distended Musculoskeletal: No erythema, No tenderness, No warmth Integumentary: No erythema, No warmth, No cyanosis, Other (Sutures noted to the left amputated great toe) Neurological: Normal speech, Normal strength at 5/5 x4 extr, Normal tone Lymphatics: No axilla or inguinal lymphadenopathy Laboratory Data at Discharge: WBC 6.4 K/uL (4.3-10.9) 12/10/17 04:00 Hgb 9.4 g/dL (12.0-15.0) L 12/10/17 04:00 Hct 29.4 % (36.0-45.0) L 12/10/17 04:00 Plt Count 223 K/uL (152-406) 12/10/17 04:00 PT 12.9 SECONDS (9.5-12.5) H 12/01/17 09:30 INR 1.09 12/01/17 09:30 APTT 27.3 SECONDS (24.3-36.9) 12/01/17 09:30 Sodium 139 mEq/L (135-145) 12/10/17 04:00 Potassium 4.6 mEq/L (3.6-5.0) 12/10/17 04:00 BUN 59 mg/dL (6-20) H 12/10/17 04:00 Creatinine 6.34 mg/dL (0.44-1.00) H* 12/10/17 04:00 Glucose 151 mg/dL (65-120) H 12/10/17 04:00 Uric Acid 7.2 mg/dL (2.6-8.0) 12/04/17 04:47 Phosphorus 5.3 mg/dL (2.5-4.3) H 12/04/17 04:47 Magnesium 2.1 mg/dL (1.8-2.5) 12/06/17 06:23 Total Bilirubin 0.7 mg/dL (0.3-1.2) 12/10/17 04:00 AST 15 IU/L (10-42) 12/10/17 04:00 ALT 11 IU/L (10-60) 12/10/17 04:00 Alkaline Phosphatase 144 IU/L (42-121) H 12/10/17 04:00 Troponin I 0.04 ng/mL (<0.03) H 12/02/17 04:11 B-Natriuretic Peptide 967 pg/ml (<=100) H 12/01/17 09:30 Home Medications: Metoprolol Tartrate [Lopressor] 50 mg PO BID 04/10/16 Gabapentin [Neurontin*] 600 mg PO BID 06/28/16 Amitriptyline HCl 100 mg PO BEDTIME 12/22/16 Amlodipine Besylate 10 mg PO DAILY 12/01/17 Aspirin Chewable [Aspirin Chewable*] 81 mg PO DAILY 12/01/17 Atorvastatin Calcium [Lipitor*] 20 mg PO BEDTIME 12/01/17 Budesonide/Formoterol Fumarate [Symbicort 160-4.5 Mcg Inhaler] 1 puff IH DAILY 12/01/17 Calcium Carbonate [Tums Regular*] 500 mg PO TID PRN 12/01/17 Doxazosin [Cardura*] 4 mg PO BID 12/01/17 Esomeprazole Mag Trihydrate [Nexium] 40 mg PO DAILY 12/01/17 Ramipril [Altace*] 5 mg PO DAILY AT SUPPER 12/01/17 Sevelamer HCl [Renagel] 1,600 mg PO TIDWM 12/01/17 Divalproex Sodium [Depakote] 1,000 mg PO BID #120 tablet. 12/11/17 New Medications: Divalproex Sodium [Depakote] 1,000 mg PO BID #120 tablet. Patient Discharge Instructions: 1. Patient will need to follow up with her PCP in 1 week to follow up this hospitalization. [facility] the [facility] to [facility] with [facility]. 2. Patient presented with seizures. Patient with recent history of CVA. Patient evaluated by neurology. At discharge patient will continue with Depakote 1000 mg 1 pill twice daily. Recommendation is to recheck Depakote level in 1-2 weeks to monitor her progress. Patient will need a follow up with neurology in 1-2 weeks to follow up this hospitalization and continue her care. 3. Patient has hypertension. Patient will continue with her medication including Norvasc 10 mg 1 pill daily, Cardura 4 mg 1 pill twice daily, metoprolol 50 mg 1 pill twice daily, and ramipril 5 mg daily. Recommendation is to maintain blood pressures less 150/ 80. Further adjustment can be done by her PCP. 4. Patient has end-stage renal disease on dialysis. She will continue with dialysis every Sunday, and Saturdays. She will continue with her dialysis medications. 5. Patient has hyperlipidemia. She will continue with Lipitor daily. 6. Patient has neuropathy. She will continue with Neurontin 600 mg 1 pill twice daily. 7. Patient has GERD. She will continue with Nexium daily. 8. Patient has COPD. She will continue with Symbicort 2 puffs twice daily and albuterol as needed. 9. Patient had recent amputation to the left great toe. She is to continue with current wound care. She is to follow up with surgery for removal of stitches Diet: Renal Activity: Fall precautions Followup: Duke Thomas MD [ACTIVE - CAN ADMIT] - 1-2 Weeks (call the office to make an appt. in 1-2 weeks. ) Time spent managing pt's care (in minutes): 55
[2017-12-11] MEDS: RAMIPRIL 5 MG CAP PO SCH (17:00)
--- NOTE | 2017-12-11 20:52 | P.PN ---
Date of Service: 12/11/17 Vital Signs Temp Pulse Resp BP Pulse Ox 98.0 F 66 16 160/72 H 89 L 12/11/17 12:00 12/11/17 12:00 12/11/17 12:00 12/11/17 12:00 12/11/17 12:00 Microbiology Results 12/01/17 09:50 Blood - Other Aerobic Blood Culture - Final 12/01/17 09:50 Blood - Other Gram Stain - Final 12/01/17 09:50 Blood - Other Anaerobic Blood Culture - Final No growth in 5 days. 12/01/17 09:30 Blood - Other Aerobic Blood Culture - Final No growth in 5 days. 12/01/17 09:30 Blood - Other Anaerobic Blood Culture - Final No growth in 5 days. Assessment/ Plan: Nephrology. Doing well but still with tremors, which make it difficult for her to perform activities. CPS stable without CP or SOB. No acute events overnight. Vitals, medications, blood work and imaging reviewed in the chart. General: In no apparent distress, Oriented x3 HEENT: Atraumatic, Mucous membr. moist/pink Neck: Supple Respiratory: Clear to auscultation bilaterally, Normal air movement Cardiovascular: No edema, Regular rate/rhythm, No rubs Gastrointestinal: Soft and benign, Non-distended Musculoskeletal: No clubbing, No contractures Integumentary: No rashes, No cyanosis Neurological: Normal speech, Abnormal tone Blood work reviewed in the chart. Initial Hgb 11 Imagings Data: EXAM DESCRIPTION: Kelly Single View12/01/2017 9:44 am CLINICAL HISTORY: sob COMPARISON: January 2017 FINDINGS: The lungs appear clear of acute infiltrate. The heart is probably upper limits normal size IMPRESSION: No acute abnormalities displayed Conclusions/Impression: A/ ESRD on HD TTS. HTN with CKD. DM II with CKD. Diastolic CHF, chronic. Anemia in CKD. LUIS/ Secondary HyperPTH. Hypokalemia. Seizure disorder. Intention tremor. P/ Continue current POC and Medications. Follow up with Dr. Thomas for seizure/ tremor. HD today as ordered. Encourage nutrition. PT as tolerated. AM labs. Daily weight. Case discussed with Dr. Mendosa.
== END 2017-12-11 18:26 | DRG 100 ==
LOC: ER 09:07 → ERHOLD 10:29 → 3RD-ICU 12:53 → 4TH 12-04 12:13
PROVIDERS: ADMIT Family Medicine; ATTEND Family Medicine
DX: G40.909 Epilepsy, unspecified, not intractable, without status epilepticus (principal); N18.6 End stage renal disease; I67.4 Hypertensive encephalopathy; C83.70 Burkitt lymphoma, unspecified site; I12.0 Hypertensive chronic kidney disease with stage 5 chronic kidney disease or end stage renal disease; I50.32 Chronic diastolic (congestive) heart failure; N25.81 Secondary hyperparathyroidism of renal origin; E11.43 Type 2 diabetes mellitus with diabetic autonomic (poly)neuropathy; E11.22 Type 2 diabetes mellitus with diabetic chronic kidney disease; D63.1 Anemia in chronic kidney disease; K21.9 Gastro-esophageal reflux disease without esophagitis; J42 Unspecified chronic bronchitis; K31.84 Gastroparesis; E87.6 Hypokalemia; E78.5 Hyperlipidemia, unspecified; I73.9 Peripheral vascular disease, unspecified; Z66 Do not resuscitate; Z89.412 Acquired absence of left great toe; Z99.2 Dependence on renal dialysis; Z86.73 Personal history of transient ischemic attack (TIA), and cerebral infarction without residual deficits
CPT/HCPCS: 36415; 51702; 70450; 70544; 70551; 71045; 80048; 80053; 80076; 80164; 80185; 80202; 81003; 81025; 82550; 82553; 82805; 82962; 83735; 83880; 84100; 84132; 84443; 84484; 84550; 85025; 85610; 85730; 86317; 86704; 86706; 87040; 87205; 87340; 90670; 90935; 93005; 94640; 95816; 95819; 96365; 96366; 96367; 96375; 97163; 99285; C9113; G0008; G0009; J0360; J0692; J1650; J2150; J3370; J3411; J3475; J7605; Q2009; Q2035; Q4081

== ENCOUNTER 2017-12-15 06:34 | Emergency (ER) | payer OTHER ==
--- NOTE | 2017-12-15 08:10 | RAD REPORT ---
EXAM DESCRIPTION: CT - Head Brain Wo Cont - 12/15/2017 7:30 am CLINICAL HISTORY: Altered consciousness. Involuntary movements. COMPARISON: 12/01/2017, 12/25/2015 TECHNIQUE: All CT scans are performed using dose optimization technique as appropriate and may inclu de automated exposure control or mA/KV adjustment according to patient size. FINDINGS: No intracranial hemorrhage, hydrocephalus or extra-axial fluid collection.No areas of brai n edema or evidence of midline shift. The paranasal sinuses and mastoids are clear. The calvarium is intact. IMPRESSION: No acute intracranial abnormality.
[2017-12-15 10:33] LABS: Potassium 3.9 mEq/L (3.6-5.0)
--- NOTE | 2017-12-15 10:55 | ER ---
Nurse's Notes [facility] Name: Verito Christian Age: 37 yrs Sex: Female : 1980 Arrival Date: 12/15/2017 Time: 06:39 Bed 16 Private MD: Diagnosis: Tremor, unspecified Presentation: 12/15 06:39 Presenting complaint: Patient states: she has been having tremors for the past few aa1 months and they are progressively getting worse. Transition of care: patient was not received from another setting of care. Onset of symptoms was October 2017. Care prior to arrival: None. 06:39 Method Of Arrival: EMS: [facility] aa1 06:39 Acuity: HENRRY 3 aa1 Triage Assessment: 06:41 General: Appears in no apparent distress. comfortable, Behavior is calm, cooperative, aa1 appropriate for age. Pain: Denies pain. 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 stated, "It's been a year since my last period." rb1 Historical: - Allergies: 06:41 Fentanyl (rash); aa1 06:41 Morphine (rash); aa1 - Home Meds: 06:41 amitriptyline 100 mg Oral tab 1 tab nightly [Active]; amlodipine 10 mg tab 1 tab once aa1 daily [Active]; aspirin 81 mg Oral TbEC 1 tab once daily [Active]; atorvastatin 20 mg Oral tab 1 tab once daily [Active]; doxazosin 2 mg Oral tab 2 tabs twice a day [Active]; gabapentin 300 mg Oral cap 2 caps twice daily [Active]; metoprolol succinate 50 mg Oral Tb24 1 tab twice a day [Active]; Nexium 40 mg Oral cpDR 1 cap once daily [Active]; ramipril 5 mg Oral cap 2 caps nightly [Active]; Renagel 800 mg Oral tab 2 tabs 3 times per day [Active]; - PMHx: 06:41 Diabetes - IDDM; Dialysis; Hypertension; kidney failure; LYMPHOMA; RETINAL DETACHMENT; aa1 CVA; - PSHx: 06:41 Colostomy; RUE fistula; aa1 - Immunization history:: Flu vaccine is not up to date. - Social history:: Smoking status: Patient/guardian denies using tobacco. - Family history:: not pertinent. - Hospitalizations: : No recent hospitalization is reported. - History obtained from: EMS. Screenin:00 Abuse screen: Denies threats or abuse. Nutritional screening: No deficits noted. rb1 Tuberculosis screening: No symptoms or risk factors identified. Fall Risk None identified. 07:00 Patient has been NPO before screening. The patient is alert, able to follow commands. rb1 The patient does not exhibit slurred or garbled speech The patient is not exhibiting difficulty speaking. The patient does not exhibit difficulty understanding words. The patient is able to swallow own secretions with no drooling or need for suction. Patient tolerated one teaspoon of water. No drooling, immediate coughing, gurgling, or clearing of the throat was noted. The patient tolerated 90mL of water. No drooling, immediate coughing, gurgling, or clearing of the throat was noted. The patient passed the bedside swallow screening. Oral medications may be given as ordered. Contact Physician for further diet orders. Provider notified of bedside swallow screening results: Ml Davis GARMENT SEWER HAND. Assessment: 07:00 General: Appears in no apparent distress. comfortable, Behavior is calm, cooperative. rb1 Pain: Complains of pain in right leg and left leg Pain currently is 5 out of 10 on a pain scale. Neuro: Level of Consciousness is awake, alert, obeys commands, Oriented to person, place, time, situation. Neuro: Reports Tremors that started a year ago.. Cardiovascular: Capillary refill < 3 seconds is brisk in bilateral fingers. Respiratory: Airway is patent Respiratory effort is even, unlabored, Respiratory pattern is regular, symmetrical. GI: No signs and/or symptoms were reported involving the gastrointestinal system. : Reports Dialysis T- TH - Sat. Derm: Skin is pink, warm \\T\\ dry. Musculoskeletal: Range of motion: intact in all extremities. 07:00 Reassessment: Asked the provider if we were calling a code stroke because she ordered a rb1 Stroke workup, Ryan stated, "I just ordered it like that so I could combined the tests that I wanted." I also checked with SHARON Howe and she replied that we didn't need to call a code stroke. 07:10 Reassessment: BETSY Estrada will try to insert IV. rb1 07:25 Reassessment: Notified provider that we were unable to attain an IV, and that the pt. rb1 stated, "they use US to get my IV." US machine is outside the pt. door. 07:45 Reassessment: Reminded provider that the pt. still needs to have a line insereted. rb1 08:00 Reassessment: Patient appears in no apparent distress at this time. Patient and/or rb1 family updated on plan of care and expected duration. Pain level reassessed. Patient is alert, oriented x 3, equal unlabored respirations, skin warm/dry/pink. Provider is with another pt. at this time. 08:50 Reassessment: Provider at bedside attempting to insert IV. rb1 09:00 Reassessment: Patient appears in no apparent distress at this time. No changes from rb1 previously documented assessment. 09:30 Reassessment: Provider asked me to ask Dr. Stapleton if he could look to see if he could rb1 find a vein to start a line. Dr. Stapleton notified. I called lab to have them come to draw the labs. 09:43 Reassessment: Lab is at bedside. rb1 10:00 Reassessment: Patient appears in no apparent distress at this time. Patient and/or rb1 family updated on plan of care and expected duration. Pain level reassessed. Patient is alert, oriented x 3, equal unlabored respirations, skin warm/dry/pink. Mother at bedside. 11:00 Reassessment: Patient appears in no apparent distress at this time. No changes from rb1 previously documented assessment. 11:16 Reassessment: Gave report to [facility] before transport. rb1 11:30 Reassessment: Called report to RENETTA Uriarte at [facility]. All questions rb1 were asked and answered. Vital Signs: 06:41 BP 138 / 93; Pulse 64; Resp 16; Temp 97.3; Pulse Ox 100% on R/A; Pain 0/10; aa1 07:40 BP 153 / 76; Pulse 64; Resp 17; Pulse Ox 99% ; rb1 08:40 BP 177 / 86; Pulse 66; Resp 17; Pulse Ox 98% on R/A; rb1 09:40 BP 168 / 82; Pulse 63; Resp 17; Pulse Ox 100% on R/A; rb1 10:40 BP 174 / 75; Pulse 67; Resp 19; Pulse Ox 99% on R/A; rb1 NIH Stroke Scale Scores: 09:50 NIHSS Score: 0 kav ED Course: 06:39 Patient arrived in ED. aa1 06:40 Triage completed. aa1 06:41 Arm band placed on left wrist. Patient placed in an exam room, on a stretcher. aa1 06:44 Ml Davis FNP is [facility]. kav 06:44 Erlin Campuzano MD is Attending Physician. kav 06:58 Bonny Bean, RN is Primary Nurse. rb1 07:00 Patient has correct armband on for positive identification. Bed in low position. Call rb1 light in reach. Side rails up X2. Pulse ox on. NIBP on. 07:00 Missed attempt(s): 22 gauge in left antecubital area. rb1 07:10 Missed attempt(s): 20 gauge in left antecubital area. Attempted by BETSY Estrada. rb1 07:29 CT completed. Patient tolerated procedure well. Patient moved back from CT. jg1 07:30 Head Brain Wo Cont In Process Unspecified. EDMS 08:53 Missed attempt(s): 20 gauge in left antecubital area. Attempted by Ryan the provider, rb1 using US.. 08:58 Missed attempt(s): 20 gauge in left forearm. Attempted by Ryan the provider using US.. rb1 11:21 No provider procedures requiring assistance completed. Patient did not have IV access rb1 during this emergency room visit. Administered Medications: No medications were administered Point of Care Testing: Blood Glucose: 10:04 Blood Glucose: 140 mg/dL; rb1 Ranges: Outcome: 10:55 Discharge ordered by . kav 11:21 Discharged to [facility] rb1 11:21 Condition: stable 11:21 Discharge instructions given to EMS, Instructed on the need for transfer, Demonstrated understanding of instructions, follow-up care, Prescriptions given X none 11:23 Patient left the ED. rb1 NIH Stroke Scale - NIH Stroke Score Date: 12/15/2017 Time: 09:50 Total Score = 0 1a. Level of Consciousness (LOC) - 0(Alert) 1b. Level of Consciousness (LOC) (Year \\T\\ Age) - 0(Both) 1c. LOC Commands (Open \\T\\ Closes Eyes/Installation And Repair Technician) - 0(Both) 2. Best Gaze (Lateral Gaze Paresis) - 0(Normal) 3. Visual Field Loss - 0(No visual loss) 4. Facial Palsy - 0(Normal) 5a. Left Arm: Motor (10-second hold) - 0(No drift) 5b. Right Arm: Motor (10-second hold) - 0(No drift) 6a. Left Leg: Motor (5-second hold - always test supine) - 0(No drift) 6b. Right Leg: Motor (5-second hold - always test supine) - 0(No drift) 7. Limb Ataxia (finger/nose \\T\\ heel/becerra - test with eyes open) - 0(Absent) 8. Sensory Loss (pinprick arms/legs/face) - 0(Normal) 9. Best Language: Aphasia (description/naming/reading) - 0(No aphasia) 10. Dysarthria (speech clarity - read or repeat words) - 0(Normal) 11. Extinction and Inattention (visual/tactile/auditory/spatial/personal) - 0(No abnormality) Initials: renee Signatures: Dispatcher [employer] EDSheeba Garcia RN RN aa1 Ml Davis, GARMENT SEWER HAND GARMENT SEWER HAND Ivis Armenta jBonny Muñoz RN RN rb1 Corrections: (The following items were deleted from the chart) 08:48 08:47 Reassessment: BETSY Estrada will try to insert IV. rb1 rb1 08:58 07:25 Reassessment: Notified provider that we were unable to attain an IV, and rb1 that the pt. stated, "they use US to get my IV." rb1 : 07:30 BP 160 / 80; Pulse 61bpm; Resp 20bpm; Pulse Ox 100% RA; rb1 rb1 08:00 BP 156 / 75; Pulse 61bpm; Resp 18bpm; Pulse Ox 99% RA; rb1 rb1 09:00 BP 153 / 76; Pulse 66bpm; Resp 19bpm; Pulse Ox 98% RA; rb1 rb1 09:46 08:00 Reassessment: Provider is with another pt. at this time. rb1 rb1
--- NOTE | 2017-12-15 10:55 | EDPHYS ---
Physician Documentation [facility] Name: Verito Christian Age: 37 yrs Sex: Female : 1980 Arrival Date: 12/15/2017 Time: 06:39 Bed 16 Private MD: ED Physician Erlin Campuzano HPI: 12/15 06:44 This 37 yrs old Female presents to ER via EMS with complaints of Tremor. kav 06:44 Onset: The symptoms/episode began/occurred 2 month(s) ago, and became worse. Associated kav signs and symptoms: Pertinent positives: The patient does not have any pertinent positive signs or symptoms associated with pediatric illness. Pertinent negatives: seizure. Modifying factors: The patient symptoms are alleviated by nothing, the patient symptoms are aggravated by nothing. The patient has experienced similar episodes in the past, chronically. 06:51 The patient has been recently seen by a physician: The patient has been recently seen kav at the [facility] Emergency Department, last week. Patient presents by EMS for chief c/o tremors bilateral upper extremities x 2 months that became worse today. Patient is alert and oriented x 3. Patient was reportedly at her dialysis treatment and was sent to ED for tremors. She did not received her dialysis treatment today. She reports a previous CVA 2 months ago with residual affect of "...intermittent slurred speech".. 06:57 Severity of symptoms: At their worst the symptoms were very mild just prior to arrival, kav in the emergency department the symptoms are unchanged. 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 stated, "It's been a year since my last period." rb1 Historical: - Allergies: 06:41 Fentanyl (rash); aa1 06:41 Morphine (rash); aa1 - Home Meds: 06:41 amitriptyline 100 mg Oral tab 1 tab nightly [Active]; amlodipine 10 mg tab 1 tab once aa1 daily [Active]; aspirin 81 mg Oral TbEC 1 tab once daily [Active]; atorvastatin 20 mg Oral tab 1 tab once daily [Active]; doxazosin 2 mg Oral tab 2 tabs twice a day [Active]; gabapentin 300 mg Oral cap 2 caps twice daily [Active]; metoprolol succinate 50 mg Oral Tb24 1 tab twice a day [Active]; Nexium 40 mg Oral cpDR 1 cap once daily [Active]; ramipril 5 mg Oral cap 2 caps nightly [Active]; Renagel 800 mg Oral tab 2 tabs 3 times per day [Active]; - PMHx: 06:41 Diabetes - IDDM; Dialysis; Hypertension; kidney failure; LYMPHOMA; RETINAL DETACHMENT; aa1 CVA; - PSHx: 06:41 Colostomy; RUE fistula; aa1 - Immunization history:: Flu vaccine is not up to date. - Social history:: Smoking status: Patient/guardian denies using tobacco. - Family history:: not pertinent. - Hospitalizations: : No recent hospitalization is reported. - History obtained from: EMS. ROS: 09:50 Constitutional: Negative for fever, chills, and weight loss, Eyes: Negative for injury, kav pain, redness, and discharge, ENT: Negative for injury, pain, and discharge, Neck: Negative for injury, pain, and swelling, Cardiovascular: Negative for chest pain, palpitations, and edema, Respiratory: Negative for shortness of breath, cough, wheezing, and pleuritic chest pain, Abdomen/GI: Negative for abdominal pain, nausea, vomiting, diarrhea, and constipation, Back: Negative for injury and pain, : Negative for injury, bleeding, discharge, and swelling, MS/Extremity: Negative for injury and deformity, Skin: Negative for injury, rash, and discoloration, Psych: Negative for depression, anxiety, suicide ideation, homicidal ideation, and hallucinations, Allergy/Immunology: Negative for hives, rash, and allergies, Endocrine: Negative for neck swelling, polydipsia, polyuria, polyphagia, and marked weight changes, Hematologic/Lymphatic: Negative for swollen nodes, abnormal bleeding, and unusual bruising. 09:50 Neuro: Positive for tremor. Exam: 09:50 Constitutional: This is a well developed, well nourished patient who is awake, alert, kav and in no acute distress. Head/Face: Normocephalic, atraumatic. Eyes: Pupils equal round and reactive to light, extra-ocular motions intact. Lids and lashes normal. Conjunctiva and sclera are non-icteric and not injected. Cornea within normal limits. Periorbital areas with no swelling, redness, or edema. ENT: Nares patent. No nasal discharge, no septal abnormalities noted. Tympanic membranes are normal and external auditory canals are clear. Oropharynx with no redness, swelling, or masses, exudates, or evidence of obstruction, uvula midline. Mucous membranes moist. Neck: Trachea midline, no thyromegaly or masses palpated, and no cervical lymphadenopathy. Supple, full range of motion without nuchal rigidity, or vertebral point tenderness. No Meningismus. Chest/axilla: Normal chest wall appearance and motion. Nontender with no deformity. No lesions are appreciated. Cardiovascular: Regular rate and rhythm with a normal S1 and S2. No gallops, murmurs, or rubs. Normal PMI, no JVD. No pulse deficits. Respiratory: Lungs have equal breath sounds bilaterally, clear to auscultation and percussion. No rales, rhonchi or wheezes noted. No increased work of breathing, no retractions or nasal flaring. Abdomen/GI: Soft, non-tender, with normal bowel sounds. No distension or tympany. No guarding or rebound. No evidence of tenderness throughout. Back: No spinal tenderness. No costovertebral tenderness. Full range of motion. Skin: Warm, dry with normal turgor. Normal color with no rashes, no lesions, and no evidence of cellulitis. MS/ Extremity: Pulses equal, no cyanosis. Neurovascular intact. Full, normal range of motion. Psych: Awake, alert, with orientation to person, place and time. Behavior, mood, and affect are within normal limits. 09:50 Neuro: Orientation: is normal, appropriate for stated age, Mentation: is normal, appropriate for stated age, responsive to voice lucid, able to follow commands, Memory: is normal, Cranial nerves: grossly normal, is grossly normal based on the patient's age, Cerebellar function: is grossly normal, is grossly normal based on the patient's age, no acute changes, Romberg testing is negative, normal finger to nose testing, heel to becerra testing is normal, able to perform alternating rapid hand movements, Motor: is normal, Sensation: is normal, no obvious gross deficits, Gait: unable to assess, the patient is nonambulatory, Deep tendon reflexes are normal, Babinski testing is normal, seizure activity, is not displayed by the patient. Vital Signs: 06:41 BP 138 / 93; Pulse 64; Resp 16; Temp 97.3; Pulse Ox 100% on R/A; Pain 0/10; aa1 07:40 BP 153 / 76; Pulse 64; Resp 17; Pulse Ox 99% ; rb1 08:40 BP 177 / 86; Pulse 66; Resp 17; Pulse Ox 98% on R/A; rb1 09:40 BP 168 / 82; Pulse 63; Resp 17; Pulse Ox 100% on R/A; rb1 10:40 BP 174 / 75; Pulse 67; Resp 19; Pulse Ox 99% on R/A; rb1 NIH Stroke Scale Scores: 09:50 NIHSS Score: 0 kav MDM: 06:44 Patient medically screened. kav 10:54 Data reviewed: vital signs, nurses notes, EMS record, lab test result(s), radiologic kav studies, CT scan. 12/15 06:50 Order name: Basic Metabolic Panel; Complete Time: 10:41 kav 12/15 10:41 Interpretation: GLUC 148; BUN 48; NA 133; CL 95; CRE 6.44. kav 12/15 06:50 Order name: EKG; Complete Time: 06:50 kav 12/15 06:50 Order name: Accucheck; Complete Time: 10:18 kav 12/15 06:50 Order name: Cardiac monitoring; Complete Time: 10:18 kav 12/15 06:50 Order name: EKG - Nurse/Tech; Complete Time: 11:10 kav 12/15 06:50 Order name: IV Saline Lock; Complete Time: 10:18 kav 12/15 06:50 Order name: Labs collected and sent; Complete Time: 10:18 kav 12/15 06:50 Order name: NPO; Complete Time: 10:18 kav 12/15 07:03 Order name: Head Brain Wo Cont; Complete Time: 09:53 EDMS 12/15 09:53 Interpretation: No acute disease. kav 12/15 06:50 Order name: O2 Per Protocol; Complete Time: 10:17 kav 12/15 06:50 Order name: O2 Sat Monitoring; Complete Time: 10:17 kav 12/15 06:50 Order name: Stroke Swallow Screen; Complete Time: 10:18 kav Administered Medications: No medications were administered Point of Care Testing: Blood Glucose: 10:04 Blood Glucose: 140 mg/dL; rb1 Ranges: Critical Glucose Levels:Adult <50 mg/dl or >400 mg/dl <40 mg/dl or >180 mg/dl Disposition: 12/15/17 10:55 Discharged to Home. Impression: Tremor, unspecified. - Condition is Stable. - Discharge Instructions: Tremor. - Medication Reconciliation Form, Thank You Letter, Antibiotic Education, Prescription Opioid Use form. - Follow up: Private Physician; When: Today; Reason: dialysis. - Problem is new. - Symptoms have improved. - Notes: discharge to dialysis today NIH Stroke Scale - NIH Stroke Score Date: 12/15/2017 Time: 09:50 Total Score = 0 1a. Level of Consciousness (LOC) - 0(Alert) 1b. Level of Consciousness (LOC) (Year \\T\\ Age) - 0(Both) 1c. LOC Commands (Open \\T\\ Closes Eyes/Vulcanizer) - 0(Both) 2. Best Gaze (Lateral Gaze Paresis) - 0(Normal) 3. Visual Field Loss - 0(No visual loss) 4. Facial Palsy - 0(Normal) 5a. Left Arm: Motor (10-second hold) - 0(No drift) 5b. Right Arm: Motor (10-second hold) - 0(No drift) 6a. Left Leg: Motor (5-second hold - always test supine) - 0(No drift) 6b. Right Leg: Motor (5-second hold - always test supine) - 0(No drift) 7. Limb Ataxia (finger/nose \\T\\ heel/becerra - test with eyes open) - 0(Absent) 8. Sensory Loss (pinprick arms/legs/face) - 0(Normal) 9. Best Language: Aphasia (description/naming/reading) - 0(No aphasia) 10. Dysarthria (speech clarity - read or repeat words) - 0(Normal) 11. Extinction and Inattention (visual/tactile/auditory/spatial/personal) - 0(No abnormality) Initials: renee Addendum: 12/17/2017 01:38 Co-signature as Attending Physician, Erlin Campuzano MD I agree with the tw4 assessment and plan of care. Signatures: Dispatcher [employer] Sheeba Argueta, RN RN aa1 Ml Davis, SHEET PILE HAMMER OPERATOR SHEET PILE HAMMER OPERATOR Bonny Senior RN RN rb1 Wadley, Terrence, MD MD tw4 Corrections: (The following items were deleted from the chart) 12/15 07:03 06:50 CT-STROKE BRAIN W/O CONTRAST+CT.RAD.BRZ ordered. EDMS EDMS 10:08 06:50 PROTIME (+INR)+COAG.LAB.BRZ ordered. EDMS EDMS 10: 06:50 PTT, ACTIVATED+COAG.LAB.BRZ ordered. EDMS EDMS 10:41 10:41 Normal except: GLUC 148; BUN 48; NA 133; CL 95; CRE 6.44. kav kav 10:57 06:50 Urine Dipstick-Ancillary ordered. kav kav 10:57 06:50 Urine Test ordered. kav kav
[2017-12-15 11:27] VITALS: TEMP 97.3
[2017-12-15 11:31] VITALS: BP 174/75; O2SAT 99
== END 2017-12-15 11:23 | disposition home or self-care (01) ==
LOC: ER 06:34
DX: R25.1 Tremor, unspecified (principal); N19 Unspecified kidney failure; Z99.2 Dependence on renal dialysis; I10 Essential (primary) hypertension; E11.9 Type 2 diabetes mellitus without complications; Z79.82 Long term (current) use of aspirin; Z88.5 Allergy status to narcotic agent; Z88.8 Allergy status to other drugs, medicaments and biological substances; Z86.73 Personal history of transient ischemic attack (TIA), and cerebral infarction without residual deficits
CPT/HCPCS: 36415; 70450; 80048; 82962; 99284

== ENCOUNTER 2018-02-25 09:42 | Inpatient (IN) | payer OTHER ==
[2018-02-25] MEDS ORDERED: NA CHLORIDE 0.9% 1,000 ML ONE (10:17)
--- NOTE | 2018-02-25 12:32 | ER ---
Nurse's Notes [facility] Name: Verito Christian Age: 38 yrs Sex: Female : 1980 Arrival Date: 02/25/2018 Time: 09:42 Bed 3 Private MD: Diagnosis: Hypotension;Hypoxemia;Encounter for palliative care Presentation: 02/25 09:42 Presenting complaint: EMS states: [facility] reported pt became more confused over aa5 the weekend. EMS reports pt was alert to painful stimuli upon scene arrival and became unresponsive upon transfer here. EMS reports pt's O2 sat 85% non-rebreather mask, BP 70/30, FSBG 333, RR 40. 09:42 Acuity: HENRRY 1 aa5 09:42 Transition of care: patient was received from another setting of care (long-term care [facility]), [facility]. Onset of symptoms was February 25, 2018. Risk Assessment: Do you want to hurt yourself or someone else? Other: unable to assess. Care prior to arrival: IV initiated. 22 GA, in the right forearm, Glucose check: 333 Oxygen administered. via a non-rebreather mask. 09:42 Method Of Arrival: EMS: [facility] aa5 09:42 Care prior to arrival: Medication(s) given: Normal saline infusion, 250cc bolus. aa5 09:42 Initial Sepsis Screen: Does the patient meet any 2 criteria? RR > 20 per min. Systolic aa5 BP < 90 mmHg. Mean Arterial Pressure (MAP) < 65. Altered Mental Status. HR > 90 bpm. Yes If YES to both, name of provider notified: Wu Wahl MD. 12:19 Initial Sepsis Screen: Does the patient have a suspected source of infection? No. jl7 Patient's initial sepsis screen is negative. 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 - Social history:: Smoking status: unknown. - Ebola Screening: : Unable to complete screening because. Screenin:42 Abuse screen: Unable to assess. aa5 09:42 Nutritional screening: Unable to assess . Tuberculosis screening: Unable to assess . aa5 09:45 Fall Risk Secondary diagnosis (15 points) CVA, IV access (20 points). Mental Status- aa5 Overestimates/Forgets Limitations (15 pts.). Total Peter Fall Scale indicates High Risk Score (45 or more points). Fall prevention measures have been instituted. Side Rails Up X 2 Placed Close to Nursing Station. Assessment: 09:45 General: Behavior is unresponsive. Pain: Unable to use pain scale. Patient is aa5 unresponsive. Neuro: Level of Consciousness is unresponsive, Oriented to none Pt unable to follow commands. Pupils are unequal, round, and sluggishly reactive to light. Right pupil is 5 mm in size and left pupil is 4 mm in size. Pt noted to be blinking. . Cardiovascular: Heart tones S1 S2 present Edema is absent. Rhythm is sinus tachycardia Dialysis shunt: in the right upper arm , with palpable thrill, with auscultated bruit, with no erythema, with no edema, no bleeding noted. Respiratory: Airway is patent Respiratory effort is even, unlabored, Respiratory pattern is regular, symmetrical, tachypnea Breath sounds are clear bilaterally. GI: Abdomen is flat, non-distended, Bowel sounds present X 4 quads. diminished in right upper quadrant, left upper quadrant, right lower quadrant and left lower quadrant hypoactive in right upper quadrant, left upper quadrant, right lower quadrant and left lower quadrant Abd is soft X 4 quads. : No signs and/or symptoms were reported regarding the genitourinary system. brief noted. EENT: Pt noted to be blinking. Eyes appear dry. . Derm: Skin is dry, Skin is pale, Skin temperature is warm Decubitus located on bilateral heel(s) Decubitus to left heel measures approximately 2 in in diameter and is black in color, unstageable. Decubitus to right heel is dime-sized, black in color, unstageable. Decubitus to right great toe approximately dime-sized, black in color, unstageable. Left great toe amputation noted with quater-sized necrotic area noted, and necrosis noted to left 2 nd toe. Small bruising that is dark purple measuring approximately 1-2 cm in size noted to radha lateral aspect of right foot. No drainage noted to feet. Left foot dressed with Kerlix and tape. Musculoskeletal: Range of motion: limited in all extremities. 10:00 Reassessment: Dr. Wahl speaking to pt's mother Camila Cunningham about Hospice aa5 placement and [id number] DNR. [id number]-[id number] DNR in pt's chart. Pt's mother states she does not want intubation, pacing, or vasopressor drips. . 10:10 Reassessment: Contacted lab to cancel all labs per Dr. aWhl's VO. aa5 10:15 Reassessment: Metal Alloy Scientist Urszula speaking to pt's mother Camila Cunningham about aa5 hospice placement. . 11:00 Reassessment: No changes from previously documented assessment. Patient and/or family jl7 updated on plan of care and expected duration. Pain level reassessed. 11:00 Reassessment: 22 G to R arm dc'd, catheter intact, bleeding controlled, gauze applied. .aa5 11:00 Pain: Unable to use pain scale. Patient is unresponsive. jl7 12:00 Reassessment: Pt's mother remains at bedside. . Neuro: Level of Consciousness is aa5 unresponsive, Oriented to none Pt unable to follow commands. . Cardiovascular: Rhythm is sinus tachycardia. Respiratory: Airway is patent Respiratory effort is even, unlabored, Respiratory pattern is regular, symmetrical. Derm: Skin is dry, Skin is pale, Skin temperature is warm. 12:16 Reassessment: Hospice nurse at bedside.. jl7 13:00 Neuro: Level of Consciousness is unresponsive, Oriented to none Pt unable to follow aa5 commands. . Cardiovascular: Rhythm is sinus tachycardia. Respiratory: Airway is patent Respiratory effort is even, unlabored, Respiratory pattern is regular, symmetrical, Breath sounds are clear bilaterally. Derm: Skin is dry, Skin is pale, Skin temperature is warm. 13:00 Reassessment: Pt's mother remains at bedside. . aa5 14:00 Reassessment: No changes from previously documented assessment. Awaiting room aa5 assignment, pt's mother notified of wait time. . 14:50 Reassessment: Unable to flush IV, 22 G to L AC dc'd, catheter intact, bleeding aa5 controlled, gauze and tape applied. . Vital Signs: 09:45 BP 87 / 55; Pulse 140; Resp 45; Temp 98.6(TE); Pulse Ox 80% on 100% Non-rebreather mask;aa5 09:50 BP 86 / 62; Pulse 142; Resp 44 S; Pulse Ox 85% on 100% Non-rebreather mask; aa5 10:00 BP 83 / 57; Pulse 142; Resp 42 S; Pulse Ox 84% on 100% Non-rebreather mask; aa5 10:05 BP 87 / 56; Pulse 140; Resp 42 S; Pulse Ox 81% on 100% Non-rebreather mask; aa5 10:10 BP 87 / 55; Pulse 138; Resp 40 S; Pulse Ox 100% on 100% Non-rebreather mask; aa5 10:15 BP 81 / 54; Pulse 137; Resp 40 S; Pulse Ox 100% on 100% Non-rebreather mask; aa5 10:20 BP 85 / 54; Pulse 136; Resp 39 S; Pulse Ox 100% on Non-rebreather mask; aa5 10:30 BP 82 / 51; Pulse 132; Resp 40 S; Pulse Ox 100% on 100% Non-rebreather mask; aa5 10:50 BP 87 / 55; Pulse 127; Resp 40 S; Pulse Ox 100% on 100% Non-rebreather mask; aa5 11:10 BP 87 / 54; Pulse 124; Resp 30 S; Pulse Ox 100% on 50% Venturi mask; aa5 11:30 BP 85 / 54; Pulse 126; Resp 32 S; Pulse Ox 99% on 50% Venturi mask; aa5 11:53 BP 84 / 54; Pulse 127; Resp 34; Pulse Ox 97% on 50% Venturi mask; aa5 12:08 BP 85 / 47; Pulse 126; Resp 21; Pulse Ox 99% on 50% Venturi mask; aa5 12:20 BP 82 / 53; Pulse 127; Resp 32; Pulse Ox 97% on 50% Venturi mask; aa5 12:40 BP 84 / 53; Pulse 127; Resp 31; Pulse Ox 97% on 50% Venturi mask; aa5 12:50 BP 81 / 50; Pulse 126; Resp 30; Pulse Ox 97% on 50% Venturi mask; aa5 13:00 BP 84 / 50; Pulse 127; Resp 30; Pulse Ox 97% on 50% Venturi mask; aa5 13:10 BP 81 / 49; Pulse 127; Resp 29; Pulse Ox 97% on 50% Venturi mask; aa5 13:20 BP 87 / 49; Pulse 128; Resp 29 S; Pulse Ox 96% on 50% Venturi mask; aa5 13:40 BP 90 / 48; Pulse 127; Resp 29 S; Pulse Ox 98% on 50% Venturi mask; aa5 14:00 BP 87 / 44; Pulse 129; Resp 27 S; Pulse Ox 96% on 50% Venturi mask; aa5 14:30 BP 89 / 54; Pulse 128; Resp 28 S; Pulse Ox 96% on 50% Venturi mask; aa5 ED Course: 09:42 Patient arrived in ED. aa5 09:42 Arm band placed on Patient placed in an exam room, on a stretcher. aa5 09:42 Patient has correct armband on for positive identification. Placed in gown. Bed in low aa5 position. Side rails up X2. 09:42 quality assurance monitor on. Pulse ox on. NIBP on. aa5 09:50 Iraida Casas RN is Primary Nurse. aa5 09:55 Triage completed. aa5 09:57 Wu Wahl MD is Attending Physician. gs 10:06 Inserted saline lock: 22 gauge in left antecubital area, using aseptic technique. Blood iw collected. 12:28 Nacho Cannon MD is Hospitalizing Provider. gs 14:55 Inserted saline lock: 24 gauge in left upper arm, using aseptic technique. aa5 15:10 Patient admitted, IV remains in place. aa5 15:10 No provider procedures requiring assistance completed. aa5 Administered Medications: 10:06 Drug: NS 0.9% 250 ml Route: IV; Rate: bolus; Site: left antecubital; aa5 10:20 Follow up: IV Status: Completed infusion aa5 10:20 Drug: NS 0.9% 1000 ml Route: IV; Rate: 1000 ml; Site: left antecubital; aa5 11:45 Follow up: IV Status: Completed infusion aa5 Outcome: 12:31 Decision to Hospitalize by Provider. gs 15:10 Admitted to Med/surg accompanied by tech, via stretcher, room 412, with oxygen, with aa5 chart, Report called to RENETTA Valdes 15:10 Condition: stable 15:10 Discharge instructions given to Pt's mother Instructed on the need for admit, Demonstrated understanding of instructions. 15:15 Patient left the ED. aa5 Signatures: Malinda Jolly RN RN Iraida Casas RN RN ava5 Doug James RN RN [facility] Wu Wahl MD MD gs Pisarski, Jacob 3 Corrections: (The following items were deleted from the chart) 09:55 09:45 Presenting complaint: EMS states: [facility] reported pt became more confused aa5 over the weekend. EMS reports pt was alert to painful stimuli upon scene arrival and became unresponsive upon transfer here. EMS reports pt's O2 sat 85% non-rebreather mask, BP 70/30, FSBG 333, RR 40 5 13:36 13:20 BP 87 / 49; Pulse 128bpm; Resp 96bpm; Spontaneous; Pulse Ox 96% 02 100% [facility] Non-rebreather mask; [facility] 14:25 11:53 BP 84 / 54; Pulse 127bpm; Resp 34bpm; Pulse Ox 97% 02 100% Non-rebreather mask; [facility] 14:25 12:08 BP 85 / 47; Pulse 126bpm; Resp 21bpm; Pulse Ox 99% 02 100% Non-rebreather mask; [facility] 14:25 12:20 BP 82 / 53; Pulse 127bpm; Resp 32bpm; Pulse Ox 97% 02 100% Non-rebreather mask; [facility] 14:25 12:40 BP 84 / 53; Pulse 127bpm; Resp 31bpm; Pulse Ox 97% 02 100% Non-rebreather mask; [place] [id number] 14:25 12:50 BP 81 / 50; Pulse 126bpm; Resp 30bpm; Pulse Ox 97% 02 100% Non-rebreather mask; [facility] 14:25 13:00 BP 84 / 50; Pulse 127bpm; Resp 30bpm; Pulse Ox 97% 02 100% Non-rebreather mask; [place] [id number] 14:25 13:10 BP 81 / 49; Pulse 127bpm; Resp 29bpm; Pulse Ox 97% 02 100% Non-rebreather mask; [facility] 14:25 13:20 BP 87 / 49; Pulse 128bpm; Resp 29bpm; Spontaneous; Pulse Ox 96% 02 100% aa5 Non-rebreather mask; jl7 14:35 11:00 Reassessment: No changes from previously documented assessment. Patient and/or jl7 family updated on plan of care and expected duration. Pain level reassessed. Patient is alert, oriented x 3, equal unlabored respirations, skin warm/dry/pink. jl7
--- NOTE | 2018-02-25 12:32 | EDPHYS ---
Physician Documentation [facility] Name: Verito Christian Age: 38 yrs Sex: Female : 1980 Arrival Date: 02/25/2018 Time: 09:42 Bed 3 Private MD: ED Physician Wu Wahl HPI: 02/25 14:38 This 38 yrs old Female presents to ER via EMS with complaints of Unresponsive.gs 14:38 Onset: The symptoms/episode began/occurred 3 day(s) ago, and became worse and became gs persistent. Patient's baseline: Neuro: alert but confused. Unable to obtain HPI due to comatose state. The patient has experienced similar episodes in the past, a few times. 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 - Social history:: Smoking status: unknown. - Ebola Screening: : Unable to complete screening because. ROS: 14:38 Unable to obtain ROS due to patient distress. gs Exam: 14:38 Eyes: Pupils equal round and reactive to light, extra-ocular motions intact. Lids and gs lashes normal. Conjunctiva and sclera are non-icteric and not injected. Cornea within normal limits. Periorbital areas with no swelling, redness, or edema. ENT: Nares patent. No nasal discharge, no septal abnormalities noted. Tympanic membranes are normal and external auditory canals are clear. Oropharynx with no redness, swelling, or masses, exudates, or evidence of obstruction, uvula midline. Mucous membranes moist. Neck: Trachea midline, no thyromegaly or masses palpated, and no cervical lymphadenopathy. Supple, full range of motion without nuchal rigidity, or vertebral point tenderness. No Meningismus. Chest/axilla: Normal chest wall appearance and motion. Nontender with no deformity. No lesions are appreciated. 14:38 Abdomen/GI: Soft, non-tender, with normal bowel sounds. No distension or tympany. No guarding or rebound. No evidence of tenderness throughout. Back: No spinal tenderness. No costovertebral tenderness. Full range of motion. 14:38 Constitutional: The patient appears comatose. 14:38 Cardiovascular: Rate: tachycardic, Rhythm: regular. 14:38 Respiratory: moderate respiratory distress is noted, Respirations: tachypnea, Breath sounds: rhonchi, that are mild. 14:38 Musculoskeletal/extremity: bl foot wounds. 14:38 Neuro: can fully test comatose. Vital Signs: 09:45 BP 87 / 55; Pulse 140; Resp 45; Temp 98.6(TE); Pulse Ox 80% on 100% Non-rebreather mask;aa5 09:50 BP 86 / 62; Pulse 142; Resp 44 S; Pulse Ox 85% on 100% Non-rebreather mask; aa5 10:00 BP 83 / 57; Pulse 142; Resp 42 S; Pulse Ox 84% on 100% Non-rebreather mask; aa5 10:05 BP 87 / 56; Pulse 140; Resp 42 S; Pulse Ox 81% on 100% Non-rebreather mask; aa5 10:10 BP 87 / 55; Pulse 138; Resp 40 S; Pulse Ox 100% on 100% Non-rebreather mask; aa5 10:15 BP 81 / 54; Pulse 137; Resp 40 S; Pulse Ox 100% on 100% Non-rebreather mask; aa5 10:20 BP 85 / 54; Pulse 136; Resp 39 S; Pulse Ox 100% on Non-rebreather mask; aa5 10:30 BP 82 / 51; Pulse 132; Resp 40 S; Pulse Ox 100% on 100% Non-rebreather mask; aa5 10:50 BP 87 / 55; Pulse 127; Resp 40 S; Pulse Ox 100% on 100% Non-rebreather mask; aa5 11:10 BP 87 / 54; Pulse 124; Resp 30 S; Pulse Ox 100% on 50% Venturi mask; aa5 11:30 BP 85 / 54; Pulse 126; Resp 32 S; Pulse Ox 99% on 50% Venturi mask; aa5 11:53 BP 84 / 54; Pulse 127; Resp 34; Pulse Ox 97% on 50% Venturi mask; aa5 12:08 BP 85 / 47; Pulse 126; Resp 21; Pulse Ox 99% on 50% Venturi mask; aa5 12:20 BP 82 / 53; Pulse 127; Resp 32; Pulse Ox 97% on 50% Venturi mask; aa5 12:40 BP 84 / 53; Pulse 127; Resp 31; Pulse Ox 97% on 50% Venturi mask; aa5 12:50 BP 81 / 50; Pulse 126; Resp 30; Pulse Ox 97% on 50% Venturi mask; aa5 13:00 BP 84 / 50; Pulse 127; Resp 30; Pulse Ox 97% on 50% Venturi mask; aa5 13:10 BP 81 / 49; Pulse 127; Resp 29; Pulse Ox 97% on 50% Venturi mask; aa5 13:20 BP 87 / 49; Pulse 128; Resp 29 S; Pulse Ox 96% on 50% Venturi mask; aa5 13:40 BP 90 / 48; Pulse 127; Resp 29 S; Pulse Ox 98% on 50% Venturi mask; aa5 14:00 BP 87 / 44; Pulse 129; Resp 27 S; Pulse Ox 96% on 50% Venturi mask; aa5 14:30 BP 89 / 54; Pulse 128; Resp 28 S; Pulse Ox 96% on 50% Venturi mask; aa5 MDM: 10:00 Patient medically screened. gs 14:38 Differential Diagnosis: electrolyte abnormality, intracranial bleed, pneumonia, sepsis. Data reviewed: vital signs, nurses notes. ED course: pt is bed bound unaware of surrounding but does respond at her baseline, mother request we move to hospice will support with fluids o2, ip hospice admit. 02/25 09:57 Order name: Blood Culture Adult (2) aa5 02/25 09:57 Order name: IV Saline Lock - Large Bore; Complete Time: 09:59 aa5 02/25 10:18 Order name: Misc. Order; Complete Time: 10:19 gs Administered Medications: 10:06 Drug: NS 0.9% 250 ml Route: IV; Rate: bolus; Site: left antecubital; aa5 10:20 Follow up: IV Status: Completed infusion aa5 10:20 Drug: NS 0.9% 1000 ml Route: IV; Rate: 1000 ml; Site: left antecubital; aa5 11:45 Follow up: IV Status: Completed infusion aa5 Disposition: 02/25/18 12:31 Hospitalization ordered by Nacho Cannon for Inpatient Admission. Preliminary diagnosis are Hypotension, Hypoxemia, Encounter for palliative care. - Bed requested for Telemetry/MedSurg (observation). - Status is Inpatient Admission. aa5 - Condition is Stable. - Problem is new. - Symptoms are unchanged. UTI on Admission? No Signatures: Dispatcher [employer] EDMS Mitali Cadet Iraida Batres RN RN 5 Wu Wahl MD MD gs Corrections: (The following items were deleted from the chart) 09:58 09:57 Accucheck ordered. 5 aa5 09:59 09:57 Cardiac monitoring ordered. [place] [id number] 09:59 09:57 EKG - Nurse/Tech ordered. [place] [address] 10:00 09:57 Labs collected and sent ordered. [place] [address] 10:00 09:57 Oxygen Per Protocol ordered. [place] [address] 10:00 09:57 O2 Sat Monitoring ordered. [place] [address] 10:00 09:58 LACTATE+C.LAB.BRZ ordered. EDMN EDMS 10:01 09:57 Urine Dipstick-Ancillary ordered. [place] [address] 10:22 09:58 Chest Single View+RAD.RAD.BRZ ordered. EDMS EDMS 10:54 09:58 CBC+H.LAB.BRZ ordered. EDMS EDMS 10:54 09:58 PROTIME (+INR)+COAG.LAB.BRZ ordered. EDMS EDMS 10:54 09:58 PTT, ACTIVATED+COAG.LAB.BRZ ordered. EDMS EDMS 10:54 09:58 WESTERGREN SEDRATE+H.LAB.BRZ ordered. EDMS EDMS 10:55 09:58 AMYLASE, SERUM+C.LAB.BRZ ordered. EDMS EDMS 10:55 09:58 BASIC METABOLIC PANEL+C.LAB.BRZ ordered. EDMS EDMS 10:55 09:58 BNP+C.LAB.BRZ ordered. EDMS EDMS 10:55 09:58 C-REACTIVE PROTEIN+C.LAB.BRZ ordered. EDMS EDMS 10:55 09:58 CKMB+C.LAB.BRZ ordered. EDMS EDMS 10:55 09:58 CREATINE PHOSPHOKINASE+C.LAB.BRZ ordered. EDMS EDMS 10:55 09:58 HEPATIC FUNCTION+C.LAB.BRZ ordered. EDMS EDMS 10:55 09:58 LIPASE+C.LAB.BRZ ordered. [facility] EDMN 10:55 09:58 Procalcitonin+C.LAB.BRZ ordered. [facility] EDMN 10:55 09:58 TROPONIN (EMERG DEPT USE ONLY)+C.LAB.BRZ ordered. [facility] EDMN 14:36 12:31 Hospitalization Ordered by Nacho Cannon MD for Inpatient Admission. Preliminary bd diagnosis is Hypotension; Hypoxemia; Encounter for palliative care. Bed requested for Telemetry/MedSurg (observation). Status is Inpatient Admission. Condition is Stable. Problem is new. Symptoms are unchanged. UTI on Admission? No. gs 15:15 14:36 02/25/2018 12:31 Hospitalization Ordered by Nacho Cannon MD for Inpatient aa5 Admission. Preliminary diagnosis is Hypotension; Hypoxemia; Encounter for palliative care. Bed requested for Telemetry/MedSurg (observation). Status is Inpatient Admission. Condition is Stable. Problem is new. Symptoms are unchanged. UTI on Admission? No. bd
[2018-02-25] MEDS ORDERED: LORazepam 2 MG/ML VIAL IV PRN (14:15)
[2018-02-25] MEDS ORDERED: SCOPOLAMINE HYDROBROMIDE PATCH TD SCH (14:30)
[2018-02-25 16:13] VITALS: O2SAT 96
[2018-02-25 16:46] VITALS: BP 74/39; TEMP 98.4
[2018-02-25 16:48] VITALS: BMI 18.8
--- NOTE | 2018-02-25 17:39 | P.HP ---
Certification for Inpatient Patient admitted to: Inpatient With expected LOS: >2 Midnights Patient will require the following post-hospital care: Hospice Practitioner: I am a practitioner with admitting privileges, knowledge of patient current condition, hospital course, and medical plan of care. Services: Services provided to patient in accordance with Admission requirements found in Title 42 Section 412.3 of the Code of Federal Regulations Patient History Date of Service: 02/25/18 Reason for admission: UNCONTROLLED SYMPTOMS, END STAGE RENAL FAILURE History of Present Illness: MS. MORRISON'S MOTHER IS PATIENT OF MINE. I HAD ADVISED HER TO ADMIT TO HOSPICE SHE WAS TAKEN TO HD IN [place]. SHE REMAINED CONFUSED AND OBTUNDED. I SAW THAT SHE HAS NO HOPE OF SURVIVAL. I HAVE NEVER SEEN HER UNTIL TODAY. ER CALLED ME TO TAKE CARE OF HER INPATIENT HOSPICE. SHE IS COMATOSE AT THIS POINT , DYSPNEIC AND RESTLESS. Allergies morphine Allergy (Intermediate, Verified 07/18/16 08:38) Itching fentanyl Allergy (Verified 07/18/16 08:38) Itching Home Medications: Metoprolol Tartrate [Lopressor] 50 mg PO BID 04/10/16 Gabapentin [Neurontin*] 600 mg PO BID 06/28/16 Amitriptyline HCl 100 mg PO BEDTIME 12/22/16 Amlodipine Besylate 10 mg PO DAILY 12/01/17 Aspirin Chewable [Aspirin Chewable*] 81 mg PO DAILY 12/01/17 Atorvastatin Calcium [Lipitor*] 20 mg PO BEDTIME 12/01/17 Budesonide/Formoterol Fumarate [Symbicort 160-4.5 Mcg Inhaler] 1 puff IH DAILY 12/01/17 Calcium Carbonate [Tums Regular*] 500 mg PO TID PRN 12/01/17 Doxazosin [Cardura*] 4 mg PO BID 12/01/17 Esomeprazole Mag Trihydrate [Nexium] 40 mg PO DAILY 12/01/17 Ramipril [Altace*] 5 mg PO DAILY AT SUPPER 12/01/17 Sevelamer HCl [Renagel] 1,600 mg PO TIDWM 12/01/17 Divalproex Sodium [Depakote] 1,000 mg PO BID #120 tablet. 12/11/17 - Past Medical/Surgical History Has patient received pneumonia vaccine in the past: Yes Diabetic: Yes -: Diabetes mellitus type 2 -: HTN -: End-stage renal disease, hemodialysis T,Th,Sat; Dr. Guaman-Nephrology. -: History of pancreatitis -: Burkitt's Lymphoma -: History of seizures -: Gastroparesis -: Anemia of chronic disease -: Gastroparesis -: History retinal detachment -: History CVA -: Former tobacco use -: I&D of abcess, SOME LYMPH NODES REMOVED BILAT GROIN -: -: [place] cath - removed -: PERMA CATH PLACEMENT -: G-J TUBE INSERTION, REMOVAL -: dialysis fistula Psychosocial/ Personal History: She is . Has 1 child. She no longer works. She currently is at [facility]. - Family History Father -: Hypertension, Diabetes, Other (see notes) Notes: LYMPHOMA Mother -: Hypertension, Diabetes, Cancer Notes: Breast cancer - Social History Smoking Status: Former smoker Alcohol use: No CD- Drugs: No Caffeine use: No Place of Residence: [facility] Review of Systems is unable to be obtained Physical Examination - Vital Signs Temperature: 98.4 F Blood Pressure: 74/39 Pulse: 123 Respirations: 12 Pulse Ox (%): 98 - Physical Exam General: Other (COMATOSE, NO MOVEMENT ON PAINFUL STIMULUS. RAPID RESIPARATORY RATE.) - Studies Laboratory Data (last 24 hrs) 02/25/18 09:57: PT Cancelled, INR Cancelled, APTT Cancelled 02/25/18 09:57: WBC Cancelled, Hgb Cancelled, Hct Cancelled, Plt Count Cancelled 02/25/18 09:57: B-Natriuretic Peptide Cancelled 02/25/18 09:57: Sodium Cancelled, Potassium Cancelled, BUN Cancelled, Creatinine Cancelled, Glucose Cancelled, Total Bilirubin Cancelled, AST Cancelled, ALT Cancelled, Alkaline Phosphatase Cancelled, Amylase Cancelled, Lipase Cancelled Assessment and Plan - Problems (Diagnosis) (1) Type 2 DM with CKD stage 5 and hypertension Current Visit: Yes Status: Chronic Plan: MR MORRISON HAS END STAGE RENAL FAILURE, DM, STROKES IN PAST AND NOW IS COMATOSE FROM GRADUAL WORSENING. FAMILY HAS MADE DECISION ABOUT HOSPICE. 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 ORDERS WRITTEN. SHE MAY NOT LIVE MORE THAN A DAY OR TWO. - Advance Directives Does patient have a Living Will: Yes Does patient have a Durable POA for Healthcare: Yes
== END 2018-02-25 19:47 | disposition expired | DRG 951 ==
LOC: ER 09:42 → ERHOLD 13:15 → 4TH 15:18
PROVIDERS: ADMIT Internal Medicine; ATTEND Internal Medicine
DX: Z51.5 Encounter for palliative care (principal); N18.6 End stage renal disease; R40.20 Unspecified coma; I12.0 Hypertensive chronic kidney disease with stage 5 chronic kidney disease or end stage renal disease; C83.70 Burkitt lymphoma, unspecified site; I95.9 Hypotension, unspecified; R09.02 Hypoxemia; Z66 Do not resuscitate; Z88.4 Allergy status to anesthetic agent; Z88.5 Allergy status to narcotic agent; Z79.82 Long term (current) use of aspirin; E11.22 Type 2 diabetes mellitus with diabetic chronic kidney disease; Z99.2 Dependence on renal dialysis; E11.43 Type 2 diabetes mellitus with diabetic autonomic (poly)neuropathy; K31.84 Gastroparesis; D63.8 Anemia in other chronic diseases classified elsewhere; Z86.73 Personal history of transient ischemic attack (TIA), and cerebral infarction without residual deficits; Z87.891 Personal history of nicotine dependence
CPT/HCPCS: 82962; 96361; 96374; 99291; 99292; J7030